=== PATIENT | male | born 1960 | race Caucasian/White ===

== ENCOUNTER 2022-06-13 14:14 | Outpatient (CLI) | payer OTHER, SELFPAY ==
[2022-06-13 11:41] LABS: Albumin* 4.2 g/dL (3.3-5.0)
[2022-06-13 11:44] LABS: Alanine Aminotransferase* 25 U/L (4-50); Alkaline Phosphatase* 86 U/L (40-150); Aspartate Amino Transferase* 36 U/L (12-35); Bilirubin Direct* 0.3 mg/dL (0.0-0.5); Bilirubin Total* 1.4 mg/dL (0.1-1.5); Cholesterol* 172 mg/dL (90-199); HDL Cholesterol* 72 mg/dL (>=40); LDL Cholesterol Calculated 86 mg/dL (<100); Total Protein* 6.6 g/dL (6.0-8.3); Triglycerides* 72 mg/dL (40-149)
== END 2022-06-13 14:15 | disposition home or self-care (01) ==
PROVIDERS: PCP Family Medicine; Visit Provider Family Medicine
DX: E78.00 Pure hypercholesterolemia, unspecified (principal)
CPT/HCPCS: 80061; 80076

== ENCOUNTER 2022-09-17 14:19 | Outpatient (CLI) | payer OTHER, SELFPAY ==
--- OUTSIDE RECORDS SUMMARY | 2022-09-21 09:59 | XMS_ITS | Encounter Summary ---
:1960 Author Organization [employer] Address [address], [place] [address] Care Team Providers Name Role Phone Walker Purcell MD Primary Care Provider Reason for Visit Reason Comments Pulmonary Encounter Details Date Type Department Care Team Description 11/08/2021 Telephone Specialty Center 3931 Lakhwinder Morgan MD Pulmonary Pulmonary Medicine 3931 [facility] 3931 [facility] [address] [place] [address] [place] [address] [phone] (Wo rk) Social History Tobacco Use Types Packs/Day Years Used Date Smoking Tobacco: Never Smokeless Tobacco: Never Alcohol Use Standard Drinks/Week Comments Yes 1 (1 standard drink = 0.6 oz pure alcoho l) about 5 per month Sex Assigned at Date Recorded Not on file documented as of this encounter Nursing Notes Brianne Morgan MD - 11/08/2021 1:50 PM CST Breo 200/25 sent. Thanks. Lizzie Sun RN - 11/08/2021 12:28 PM CST Sorry I did not state in phone note. Pt is not taking anything ics/laba. Offered to send in the 100/25 (as in last clinic note) but he wanted something stronger. VAN DRIVER Brianne Morgan MD - 11/08/2021 11:05 AM CST He is normally on Breo 100/25, based on his last note from 08/02/21. Is he taking this? If yes, then I would like him to increase to the 200/25 dosing. Rx sent. Advair is another option, but would need to taken BID. Thanks. VAN DRIVER Lizzie Price RN - 11/08/2021 10:43 AM CST Pt states that he is having a productive cough (white/milky) and chest tightness and increased GERD symptoms. Pt states that he cannot take prednisone due to up coming.Pt using duoneb BID, prilosec 40mg in AM and nexiium 40mg in AM and gaviscon 4 tab in PM, mucinex BID. Pt would like to get a strong inhaler to start to use. Please advair on RX. Thank you [facility] [place] VAN DRIVER documented in this encounter Plan of Treatment Upcoming Encounters Date Type Specialty Care Team Description 10/10/2022 Appointment Pulmonary 10/10/2022 Office Visit Pulmonary Koki Morgan MD 3931 [facility] [address] [facility] N [address] (Wo rk) documented as of this encounter Visit Diagnoses Not on filedocumented in this encounter Care Teams Ways Operator Relationship Specialty Start Date End Date Walker Purcell MD PCP - General Family Practice 03/02/[address]1999 [place] [address] documented as of this encounter
--- OUTSIDE RECORDS SUMMARY | 2022-09-21 09:59 | XMS_ITS | Encounter Summary ---
:1960 Author Organization [employer] Address [address] [place] [address] Care Team Providers Name Role Phone Walker Purcell MD Primary Care Provider Reason for Visit Reason Comments Refill Encounter Details Date Type Department Care Team Description 04/12/2022 Refill Specialty Center 3931 Lakhwinder Morgan MD Refill Pulmonary Medicine 3931 [facility] [address] [place] [address] [place] [address] [phone] Social History Tobacco Use Types Packs/Day Years Used Date Smoking Tobacco: Never Smokeless Tobacco: Never Alcohol Use Standard Drinks/Week Comments Yes 1 (1 standard drink = 0.6 oz pure alcoho l) about 5 per month Sex Assigned at Date Recorded Not on file documented as of this encounter Plan of Treatment Upcoming Encounters Date Type Specialty Care Team Description 10/10/2022 Appointment Pulmonary 10/10/2022 Office Visit Pulmonary Koki Morgan MD 3931 [facility] [address] [facility] N [address] (Wo rk) documented as of this encounter Visit Diagnoses Diagnosis Moderate persistent asthma without compl ication (HRC) Unspecified asthma documented in this encounter Care Teams Patient Access Relationship Specialty Start Date End Date Walker Purcell MD PCP - General Family Practice 03/02/191999 [place] [address] documented as of this encounter
--- OUTSIDE RECORDS SUMMARY | 2022-09-21 09:59 | XMS_ITS | Encounter Summary ---
:1960 Author Organization [facility] Address [address], [place] [address] Care Team Providers Name Role Phone Walker Purcell MD Primary Care Provider Encounter Details Date Type Department Care Team Description 03/14/2022 Orders Only HIM DEPARTMENT Provider, Carlos joe [place] [address] Social History Tobacco Use Types Packs/Day Years [...] Office Visit Pulmonary Koki Morgan MD [address] [facility] [address] [facility] N [id number] (Wo rk) documented as of this encounter Procedures Procedure Name Priority Date/Time Associated Diagnosis Comme nts PULMONARY TEST SC 03/14/2022 Results fo r this procedure are in the resu lts section. documented in this encounter Results PULMONARY TEST SC (03/14/2022) Narrative This result has an attachment that is no t available. Interface Provider DUMMY/OTHER/AR documented in this encounter Visit Diagnoses Not on filedocumented in this encounter Care Teams Optical Glass Sawyer Relationship Specialty Start Date End Date Walker Purcell MD PCP - General Family Practice 03/02/191999 [place] [address] documented as of this encounter
--- OUTSIDE RECORDS SUMMARY | 2022-09-21 09:59 | XMS_ITS | Encounter Summary ---
:1960 Author Organization [employer] Address [address], [place] [address] Care Team Providers Name Role Phone Walker Purcell MD Primary Care Provider Reason for Referral (Routine) - New Request Specialty Diagnoses / Procedures Referred By Contact Refer red To Contact Procedures Brianne Morgan MD Pulmonary Function Test - 3931 [facility] [address] Complete [place], [place] [address] Referral ID Status Reason Start Date Expiration Date Visits V isits Requested Authorized [id number] New Request 03/13/2022 06/12/2023 1 1 Encounter Details Date Type Department Care Team Description 03/14/2022 Hospital Encounter Specialty Center 3931 Pulmonary Cough Lab 3931 [place], [place] [id number] Social History Tobacco Use Types Packs/Day Years Used Date Smoking Tobacco: Never Smokeless Tobacco: Never Alcohol Use Standard Drinks/Week Comments Yes 1 (1 standard drink = 0.6 oz pure alcoho l) about 5 per month Sex Assigned at Date Recorded Not on file documented as of this encounter Medications at Time of Discharge Medication Sig Dispensed Refills Start Date End Date ALBUterol sulfate HFA Inhale 1-2 Puffs 1 Each 11 03/14/20 22 (VENTOLIN HFA) 108 (90 every 4 hours as Base) MCG/ACT needed for Wheezing. inhalerIndications: Moderate persistent asthma without complication (HRC) Alum Hydroxide-Mag 4 Tablets. 0 Carbonate (GAVISCON OR) esomeprazole (NEXIUM) Take 40 mg by mouth. 0 02/09 20 MG capsule famotidine (PEPCID AC) 0 06/25/2021 10 MG tablet fluticasone-vilanterol Inhale 1 Dose daily. 1 Each 11 02/2022 (BREO ELLIPTA) 200-25 Rinse mouth/gargle MCG/INH after use inhalerIndications: Moderate persistent asthma without complication (HRC) ipratropium-albuterol Inhale 3 mL every 4 120 mL 11 03/14 (DUONEB) 0.5-2.5 (3) hours as needed for mg/3ml nebulizer Wheezing or Shortness solutionIndications: of Breath. Moderate persistent asthma without complication (HRC) loratadine (CLARITIN) Take 10 mg by mouth 0 10 MG tablet daily. montelukast (SINGULAIR) Take 1 Tablet by 90 Tablet 3 2020 10 MG tablet mouth every evening. pravastatin (PRAVACHOL) Take 20 mg by mouth 0 05/2022 20 MG tablet daily. traZODone (DESYREL) 50 Take 50 mg by mouth 0 02/09 MG tablet daily at bedtime. valACYclovir (VALTREX) Take 1 g by mouth 0 2016 1 G tablet daily. doxycycline monohydrate Take 1 Capsule (100 20 Capsule 3 02/202203/24/2022 (MONODOX) 100 MG mg) by mouth two capsuleIndications: times a day for 10 Acute sinusitis, days. Pharmacy may recurrence not substitute hyclate or specified, unspecified monohydrate tab or location capsule based on insurance documented as of this encounter Plan of Treatment Upcoming Encounters Date Type Specialty Care Team Description 10/10/2022 Appointment Pulmonary 10/10/2022 Office Visit Pulmonary Koki Morgan MD [address] [facility] [address] [address] (Wo rk) documented as of this encounter Procedures Procedure Name Priority Date/Time Associated Diagnosis Comme nts COMPLETE PULMONARY Routine 03/14/2022 9:43 AM CDT FUNCTION TEST documented in this encounter Results Pulmonary Function Test - Complete (03/14/2022 9:43 AM CDT) Specimen (Source) Anatomical Collection Method Collection Time Re ceived Time Location / / Volume Laterality 03/14/2022 9:43 AM CDT Brianne Morgan MD PN PFT ORDERABLES Performing Organization Address City/State/ZIP Code Phon e Number PN BREEZE documented in this encounter Visit Diagnoses Diagnosis Cough documented in this encounter Care Teams Relief Cook Relationship Specialty Start Date End Date Walker Purcell MD PCP - General Family Practice 03/02/191999 [place] [address] documented as of this encounter
--- OUTSIDE RECORDS SUMMARY | 2022-09-21 09:59 | XMS_ITS | Encounter Summary ---
:1960 Author Organization [employer] Address [address], [place] [address] Care Team Providers Name Role Phone Walker Purcell MD Primary Care Provider Encounter Details Date Type Department Care Team Description 12/20/2021 Telephone Specialty Center 3931 Lakhwinder Morgan MD Pulmonary Medicine 3931 [facility] 3931 [facility] [address] [place] [address] [place], [place] [phone] (Wo rk) Social History Tobacco Use Types Packs/Day Years Used Date Smoking Tobacco: Never Smokeless Tobacco: Never Alcohol Use Standard Drinks/Week Comments Yes 1 (1 standard drink = 0.6 oz pure alcoho l) about 5 per month Sex Assigned at Date Recorded Not on file documented as of this encounter Nursing Notes Abeba Quarles - 12/20/2021 1:51 PM CST Called pt to cancel appts with Dr. Morgan on 03/06/22 as she will be on vacation. Left message to call back and reschedule. OGRAMMETRIC COMPILATION SPECIALIST documented in this encounter Plan of Treatment Upcoming Encounters Date Type Specialty Care Team Description 10/10/2022 Appointment Pulmonary 10/10/2022 Office Visit Pulmonary Koki Morgan MD 3931 [facility] [address] [facility] [address] (Wo rk) documented as of this encounter Visit Diagnoses Not on filedocumented in this encounter Care Teams Motion Picture Director Relationship Specialty Start Date End Date Walker Purcell MD PCP - General Family Practice 03/02/191999 [place] [address] documented as of this encounter
--- OUTSIDE RECORDS SUMMARY | 2022-09-21 09:59 | XMS_ITS | Encounter Summary ---
:1960 Author Organization [employer] Address [address] [place] [address] Care Team Providers Name Role Phone Walker Purcell MD Primary Care Provider Reason for Visit Reason Comments Follow-up Encounter Details Date Type Department Care Team Description 03/14/2022 Office Visit Specialty Center Brianne Morgan persistent asthma without complication (Primary Dx); 3931 Pulmonary A, Acute sinusitis, recurrence not specifie d, unspecified location Medicine 3931 [facility] 3931 [facility] [address] [place] [id number] (Wo rk) Social History Tobacco Use Types Packs/Day Years Used Date Smoking Tobacco: Never Smokeless Tobacco: Never Alcohol Use Standard Drinks/Week Comments Yes 1 (1 standard drink = 0.6 oz pure alcoho l) about 5 per month Sex Assigned at Date Recorded Not on file documented as of this encounter Last Filed Vital Signs Vital Sign Reading Time Taken Comments Blood Pressure - - Pulse 79 03/14/2022 10:07 AM CDT Temperature - - Respiratory Rate - - Oxygen Saturation 98% 03/14/2022 10:07 AM CDT Inhaled Oxygen Concentration - - Weight 84.4 kg (186 lb) 03/14/2022 10:07 AM CDT Height 181 cm (5' 11.25) 03/14/2022 10:07 AM CDT Body Mass Index 25.76 03/14/2022 10:07 AM CDT documented in this encounter Progress Notes Brianne Morgan MD - 03/14/2022 10:15 AM CDT CLINIC PROGRESS NOTE REASON FOR VISIT: Follow up asthma and recurrent lung infections. SUBJECTIVE: This is a 62-year-old male with a history of asthma, recurrent bronchitis, hiatal hernia with GERD, and allergic rhinitis who presents for routine followup. He was last seen by me in the Pulmonary Clinic in July 2021, and his initial consultation was November 2017. In the past, he has been seen at [facility] in 2014, [facility], [facility]. He returns today for routine followup. For his asthma, he is on Breo 200/25, which he is using approximately 3 days per week and Singulair. He also uses albuterol periodically. The last time he needed antibiotics and prednisone was October 2021. However, he does feel that he is starting to get a sinus infection, as he has yellowish postnasal drainage and some right maxillary sinus pressure today. Nofever, chills, night sweats, chest pain, wheezing, significant cough, or dyspnea. He continues to swim regularly. He had a knee replacement in November 2021 and was off caffeine for approximately 9 weeks. He restarted some caffeine approximately 3 weeks ago. He mainly drinks pop. His primary provider added famotidine to his Gaviscon, and he feels this has helped his reflux symptoms. He has a hiatal hernia. He is a lifelong nonsmoker. 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 Hobbies include swimming and singing in a choir. He has cut way back on his alcohol intake, which also seems to help his reflux. OBJECTIVE: VITAL SIGNS: Pulse 79 Ht 5' 11.25 (1.81 m) Wt 186 lb (84.4 kg) SpO2 98% BMI 25.76 kg/m?? GENERAL: Pleasant male, no acute distress. Able to easily speak in full sentences. HEENT: Moist mucosal membranes. NECK: No lymphadenopathy. LUNGS: Clear to auscultation bilaterally. CARDIAC: Regular rate and rhythm. RESULTS: Pulmonary function tests (today): FVC 138%, FEV1 115%, and ratio 67, consistent with mild obstruction. Exhaled nitric oxide 19 ppb. Compared to his last pulmonary function test from July 2021, there is improvement in his spirometry and exhaled nitric oxide. Recent COVID test negative IMPRESSION: 1. Recurrent bronchitis: Suspect multifactorial including asthma, acid reflux from his hiatal hernia, and possibly a contributor of prior high doses of inhaled steroids. Immunoglobulin testing normal 2017. Periodically requires a Zpak. 2. Moderate persistent asthma: Symptoms generally well controlled on Breo 200/25 3 days per week. His pulmonary function tests today show mild obstruction, and his marker of airway inflammation is improved since restarting Breo. 3. Intermittent hoarseness: Likely from inhaled corticosteroids, postnasal drainage and acid reflux.Not currently having an issue with this. 4. Allergic rhinitis: On Singulair. 5. History of alcohol abuse: Minimal alcohol in the last 6 months. 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 7. Prior normal high-resolution CT chest February 2018, except for some very tiny scattered pulmonary nodules, which were stable compared to 2017. 8. Normal immunoglobulin testing and white blood cell count differential 2018. 9. COVID vaccinated (Moderna) and recent testing negative. RECOMMENDATIONS: 1. If he has worsening of his postnasal drainage, he could try nasal saline irrigation and Flonase. 2. Continue Breo 200/25 one puff to keep symptoms under good control (currenlty using approximately 3 days per week) 3. He understands the importance of minimizing carbonated beverages (and other drinks/foods) to helpminimize his acid reflux. 4. Already has an Aerobika at home to use b.i.d. for airway clearance when necessary. 5. Continue regular physical activity. 6. No indication for supplemental oxygen. 7. Continue albuterol inhaler or DuoNebs as needed. 8. Given rescue prescriptions for a doxycycline to use PRN. He will take a 10 day course of doxycycline now for acute sinusitis. 9. Continue Singulair daily. 10. Keep acid reflux under good control. 11. Keep allergies under good control. 12. 2nd COVID booster scheduled for Saturday, 03/16 Return to Pulmonary Clinic in 6 months with spirometry and exhaled nitric oxide or sooner if needed. Total Time: 40 minutes. documented in this encounter Plan of Treatment Upcoming Encounters Date Type Specialty Care Team Description 10/10/2022 Appointment Pulmonary 10/10/2022 Office Visit Pulmonary Koki Morgan MD [address] [place] [facility] [address] [facility] [address] (Wo rk) Scheduled Orders Name Type Priority Associated Diagnoses Order S chedule Spirometry PFT Routine Moderate persistent asthma E xpected: 09/14/2022, without complication Expires : 03/14/2023 Nitrous Ox Testing PFT Routine Moderate persistent as thma Expected: 09/14/2022, without complication Expires : 03/14/2023 documented as of this encounter Visit Diagnoses Diagnosis Moderate persistent asthma without compl ication (HRC) - Primary Unspecified asthma Acute sinusitis, recurrence not specifie d, unspecified location documented in this encounter Care Teams Recovery Coordinator Relationship Specialty Start Date End Date Walker Purcell MD PCP - General Family Practice 03/02/191999 [place] [address] documented as of this encounter
--- OUTSIDE RECORDS SUMMARY | 2022-09-21 09:59 | XMS_ITS | Clinical Summary ---
:1960 Author Organization [facility] [facility] [place] [address] Care Team Providers Name Role Phone Wakler Purcell MD Primary Care Provider Allergies No known active allergies Medications Medication Sig Dispensed Refills Start Date End Date Status albuterol HFA Inhale 2 Puffs 0 02/21/2013 Active (VENTOLIN HFA) 90 by mouth 4 times mcg/actuation daily if needed. inhaler esomeprazole Take 1 capsule 0 02/21/2013 A ctive (NEXIUM) 20 mg by mouth once capsule daily before a meal. NebulizerIndicati Nebulizer, neb 1 Device 0 12/01/2014 Active ons: Asthma kit, neb cup and mask. Medication: albuterol For home use. albuterol Inhale 3 mL via 2 box 3 12/01/2014 Act beverly (PROVENTIL) 0.083 a nebulizer % neb every 6 hours if solutionIndicatio needed for ns: Asthma Shortness Of Breath. montelukast Take 10 mg by 0 Acti ve (Singulair) 10 mg mouth at tablet bedtime. mag/aluminum/sod Take 4 Tablets 0 Active bicarb/alginc by mouth at (GAVISCON ORAL) bedtime. loratadine Take 1 Tablet 0 08/29/2022 Acti ve (Claritin) 10 mg (10 mg) by mouth tablet once daily. traZODone Take 25 mg by 0 02/27/2022 Activ e (DESYREL) 50 mg mouth at tablet bedtime. famotidine Take 1 Tablet by 0 06/25/2021 A ctive (PEPCID) 10 mg mouth once tablet daily. pravastatin Take 20 mg by 0 02/15/2022 Act beverly (PRAVACHOL) 20 mg mouth. tablet fexofenadine Take 1 tablet by 0 09/27/2014 08/29/20 Discontinued (WAL-FEX ALLERGY) mouth once daily 22 (*Patient states 180 mg tablet with a meal. no longer taking/Not on sending fa cility list) BREO ELLIPTA 0 07/12/2020 08/29/20 Discon tinued 100-25 mcg/dose 22 (*Pa tient states inhaler no longer taking/Not on sending fa cility list) aspirin 81 mg cap Take 81 mg by 0 08/29/20 Discontinued mouth 2 times 22 (*Gi ent states daily. Put on no hugo faby asa bid due to takin g/Not on knee replacement sen [facility] facility (knee list) replacement 11-21-2021) Hospital, Clinic, or Ordered Dose Route Frequency Start Date End D ate Status Other Facility Administered Medication triamcinolone 10 mg INFILTRATION ONE TIME 08/29/2022 08/29/2022 E nded acetonide (KENALOG) injection 10 mgIndications: Luna's neuroma of left foot Active Problems Problem Noted Date Adenomatous colon polyp 07/22/2015 Overview: Colonoscopy 07/2015 polyp repeat in 5 yea rs GERD (gastroesophageal reflux disease) 02/20/2014 Asthma 02/20/2014 Allergy, unspecified not elsewhere classified 02/22/20 13 Overview: Has benefited from Allergy shots 3 years ; DOCTOR Karina Ken Encounters Date Type Specialty Care Team Description 08/29/2022 Office Visit Joseph Willard DPM Con sult (Left foot) 08/29/2022 Travel 07/20/2022 Telephone Joseph Willard DPM Ref erral from Last 3 Months Social History Tobacco Use Types Packs/Day Years Used Date Never Smoker Smokeless Tobacco: Never Used Tobacco Cessation: Counseling Given: Yes Alcohol Use Standard Drinks/Week Comments Yes 0 (1 standard drink = 0.6 oz pure alcoho l) Sex Assigned at Date Recorded Not on file Travel History Travel Start Travel End [place] 08/11/2022 08/23/2022 COVID-19 Exposure Response Date Recorded In the last 10 days, have you been in contact with No / Unsu re 08/29/2022 8:37 AM CDT someone who was confirmed or suspected to have Coronavirus/COVID-19? Obstetrics History Last Filed Vital Signs Vital Sign Reading Time Taken Comments Blood Pressure 130/84 08/29/2022 8:47 AM CDT towe Pulse 81 08/29/2022 8:47 AM CDT Temperature 36.4 ??C (97.5 ??F) 10/24/2020 11:36 AM FRONT END DEVELOPER JAVASCRIPT HTML CSS Respiratory Rate 18 09/27/2014 3:17 PM FRONT END DEVELOPER JAVASCRIPT HTML CSS Oxygen Saturation 97% 08/29/2022 8:47 AM CDT Inhaled Oxygen Concentration - - Weight 89.8 kg (198 lb) 08/29/2022 8:47 AM CDT Height 187.3 cm (6' 1.75) 11/22/2021 11:27 AM FRONT END DEVELOPER JAVASCRIPT HTML CSS Body Mass Index 25.59 11/22/2021 11:27 AM FRONT END DEVELOPER JAVAS[employer] HTML CSS Plan of Treatment Health Maintenance Due Date Last Done Comments Pneumococcal series for age 19-64 1967 (1 - PCV) Tdap 01/30/1972 Depression screening for age 12+ 1973 BMI (ht and wt on same day) for 1979 age 18+ Hepatitis C screening for age 0301/29/1979 18-79 Tetanus booster 1981 Lipids for age 45-75 2006 Zoster (shingles) series for age 0301/29/2011 50+ (1 of 2) COVID-19 vaccine series (5 - 05/11/2022 03/16/2022, 021, Booster for Moderna series) 01/05/2021, Addition al history exists Influenza for age 50-64 07/12/2022 Colonoscopy through age 75 03/10/2028 03/10/2021, , 09/12/2020, Additional history exists Results Not on filefrom Last 3 Months Insurance Payer Benefit Plan / Subscriber ID Effective Dates Phone Addre ss Type Group HEALTH [employer] [id number] 2016-Present [address] [place] [address] Care Teams Membership Administrator Relationship Specialty Start Date End Date Walker Purcell MD PCP - General Family Practice 11/21/21 [address], [place] [address]
--- OUTSIDE RECORDS SUMMARY | 2022-09-21 09:59 | XMS_ITS | Encounter Summary ---
:1960 Author Organization [employer] Address [address], [place] [address] Care Team Providers Name Role Phone Walker Purcell MD Primary Care Provider Reason for Visit Reason Onset Date Comments COVID Questions 03/12/2022 Encounter Details Date Type Department Care Team Description 03/12/2022 Lab Visit [facility] ter for screening for Laboratory other viral diseases [address] [facility] (Primary Dx) [place] [address] Social History Tobacco Use Types Packs/Day Years [...] Office Visit Pulmonary Koki Morgan MD [address] [facility] [address] [facility] N [address] (Wo rk) documented as of this encounter Procedures Procedure Name Priority Date/Time Associated Comments Diagnosis 2019 NOVEL Routine 03/12/2022 9:48 AM Encounter for Results for this CORONAVIRUS CDT screening for other procedur e are in viral diseases the results section. documented in this encounter Results Asymptomatic - 2019 Novel Coronavirus (COVID-19) (03/12/2022 9:48 AM CDT) [facility] Method Time Signature COVID-19 Not Not 03/12/2022 [facility] Interpretation Detected Detected 9:06 PM CENTRAL LAB CDT Source Nares, left 03/12/2022 [facility] and right 9:06 PM CENTRAL LAB CDT Specimen Anatomical Collection Method Collection Time Receive d Time (Source) Location / / Volume Laterality Swab (Source Non-blood 03/12/2022 9:48 AM 2 Required) Collection / CDT 10:27 AM CDT Unknown Narrative [facility] - 03/12/2022 9:06 PM CDT Test performed by Photograph Developer Mediated Amplification. TMA has been shown to be equivalent to commercial real-time PCR t ests. This test has been authorized by the FDA under Emergency Use Authorization (E UA) for use by authorized laboratories. Lucas Chandler MD LAB_1 Performing Organization Address City/State/ZIP Code Phon e Number [facility] CENTRAL LAB [address] [address] documented in this encounter Visit Diagnoses Diagnosis Encounter for screening for other viral diseases - Primary documented in this encounter Care Teams Staff Consultant Relationship Specialty Start Date End Date Walker Purcell MD PCP - General Family Practice 03/02/191999 [place] [address] documented as of this encounter
--- OUTSIDE RECORDS SUMMARY | 2022-09-21 09:59 | XMS_ITS | Clinical Summary ---
:1960 Author Organization Location Address [address], [place] [address] Care Team Providers Name Role Phone Walker Purcell MD Primary Care Provider Source Comments You are receiving this document as you are listed as the primary care provider,follow-up provider, or the patient has been referred to you for consultation.This is in compliance with the Medicare and Medicaid EHR Incentive Program,which states Providers who transition their patient to another setting of careor provider of care or refers their patient to another provider of care shouldprovide summarycare record for each transition of care or referral. Location Allergies Active Allergy Reactions Severity Noted Date Comments Other 08/01/1998 PN: LW Other1: -nka Review Contrast Media 08/01/1998 PN: LW CM1: CONTRAST- nka Reaction : Review Food Intolerance PN: LW FI1: nka Medications Medication Sig Dispensed Refills Start Date End Date Status valACYclovir (VALTREX) Take 1 g by mouth 0 7 Active 1 G tablet daily. esomeprazole (NEXIUM) Take 40 mg by 0 02/21/2013 Active 20 MG capsule mouth. montelukast Take 1 Tablet by 90 Tablet 3 08/02/2021 Active (SINGULAIR) 10 MG mouth every tablet evening. Alum Hydroxide-Mag 4 Tablets. 0 Active Carbonate (GAVISCON OR) famotidine (PEPCID AC) 0 06/25/2021 Active 10 MG tablet pravastatin Take 20 mg by 0 02/15/2022 Act beverly (PRAVACHOL) 20 MG mouth daily. tablet traZODone (DESYREL) 50 Take 50 mg by 0 02/27/2022 Active MG tablet mouth daily at bedtime. loratadine (CLARITIN) Take 10 mg by 0 Active 10 MG tablet mouth daily. fluticasone-vilanterol Inhale 1 Dose 1 Each 03/14/2022 Active (BREO ELLIPTA) 200-25 daily. Rinse MCG/INH mouth/gargle after inhalerIndications: use Moderate persistent asthma without complication (HRC) ALBUterol sulfate HFA Inhale 1-2 Puffs 1 Each 03/14/2022 Active (VENTOLIN HFA) 108 (90 every 4 hours as Base) MCG/ACT needed for inhalerIndications: Wheezing. Moderate persistent asthma without complication (HRC) ipratropium-albuterol Inhale 3 mL every 120 mL 03/14/2022 Active (DUONEB) 0.5-2.5 (3) 4 hours as needed mg/3ml nebulizer for Wheezing or solutionIndications: Shortness of Moderate persistent Breath. asthma without complication (HRC) Active Problems Problem Noted Date Hiatal hernia 12/05/2017 Adenomatous colon polyp 07/22/2015 Overview: Overview: Colonoscopy 07/2015 polyp repeat in 5 yea rs GERD (gastroesophageal reflux disease) 02/20/2014 Allergic state 02/21/2013 Overview: Overview: Has benefited from Allergy shots 3 years ; DOCTOR Karina Ken Asthma 04/17/2003 Overview: Asthma NOS Allergic rhinitis 04/17/2003 Overview: Rhinitis Allergic NOS Immunizations Name Administration Dates Next Due Influenza IIV4 (Quadrivalent) 0.5mL (71953) 09/24/2019 Moderna (Spikevax) COVID-19, 12+ Yrs 12/08/2020 Social History Tobacco Use Types Packs/Day Years Used Date Smoking Tobacco: Never Smokeless Tobacco: Never Alcohol Use Standard Drinks/Week Comments Yes 1 (1 standard drink = 0.6 oz pure alcoho l) about 5 per month Sex Assigned at Date Recorded Not on file Last Filed Vital Signs Vital Sign Reading Time Taken Comments Blood Pressure 137/90 12/13/2020 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 Pulse 79 03/14/2022 10:07 AM CDT Temperature - - Respiratory Rate 18 01/21/2018 3:10 PM CDT Oxygen Saturation 98% 03/14/2022 10:07 AM CDT Inhaled Oxygen Concentration - - Weight 84.4 kg (186 lb) 03/14/2022 10:07 AM CDT Height 181 cm (5' 11.25) 03/14/2022 10:07 AM CDT Body Mass Index 25.76 03/14/2022 10:07 AM CDT Plan of Treatment Upcoming Encounters Date Type Specialty Care Team Description 10/10/2022 Appointment Pulmonary 10/10/2022 Office Visit Pulmonary Koki Morgan MD [address] [facility] [address] [place] [address] (Wo rk) Health Maintenance Due Date Last Done Comments Colon Cancer Screening Plan 1960 Due Hep C Screening (Preventive 1960 Services) PSA Screening Discussion 1960 HIV Screening (Preventive 1977 Services) Adult Preventive Visit 1979 DTaP/Tdap/Td (1 - Tdap) 01/30/1980 Cholesterol 01/30/1996 Zoster/Shingles (1 of 2) 2011 COVID-19 Vaccine (2 - 01/05/2021 12/08/2020 Moderna series) Influenza (#1) 2022 09/01/2021, 08/23/2020, 09/24/2019, Additional history exists Pneumococcal (3 - PPSV23) 2026 06/27/2018, 03/08/2015 HepA Aged Out No longer eligib le based on patient 's age to complete this topic HepB Aged Out No longer eligib le based on patient 's age to complete this topic Hib Aged Out No longer eligib le based on patient 's age to complete this topic IPV (Polio) Aged Out No longer eligib le based on patient 's age to complete this topic MCV4 Aged Out No longer eligib le based on patient 's age to complete this topic Insurance Payer Benefit Plan / Subscriber ID Effective Dates Phone Addre ss Type [facility] FULLY [id number] 2016-Present Commercial INSURED (Work) [phone] Trey Christensenic Timothy Personal/Famil Self 1960 [address] [facility] y (Home) [place] [phone] [place], [place] (Work) [phone] Care Teams Retort Loader Relationship Specialty Start Date End Date Walker Purcell MD PCP - General Family Practice 03/02/191999 [place], [place] [address]
--- OUTSIDE RECORDS SUMMARY | 2022-09-21 09:59 | XMS_ITS | Encounter Summary ---
:1960 Author Organization [employer] Address [address], [place] [address] Care Team Providers Name Role Phone Walker Purcell MD Primary Care Provider Reason for Visit Reason Comments Refill Encounter Details Date Type Department Care Team Description 03/31/2022 Refill Specialty Center [address] Lakhwinder Morgan MD Refill Pulmonary Medicine [address] [facility] [address] [place] [address] [place] [address] [phone] Social History Tobacco Use Types Packs/Day Years [...] Visit Pulmonary Koki Morgan MD [address] [facility] [address] [facility] N [address] (Wo rk) documented as of this encounter Visit Diagnoses Diagnosis Moderate persistent asthma without compl ication (HRC) Unspecified asthma documented in this encounter Care Teams Natural Resource Officer Relationship Specialty Start Date End Date Walker Purcell MD PCP - General Family Practice 03/02/191999 [place] [address] documented as of this encounter
--- OUTSIDE RECORDS SUMMARY | 2022-09-21 10:00 | XMS_ITS | Encounter Summary ---
:1960 Author Organization [employer] Address [address] [place] [address] Care Team Providers Name Role Phone Walker Purcell MD Primary Care Provider Reason for Referral (Routine) - Closed Specialty Diagnoses / Procedures Referred By Contact Refer red To Contact Procedures Brianne Morgan MD Pulmonary Function Test - [address] [facility] [address] Complete [place], [place] [address] Referral ID Status Reason Start Date Expiration Date Visits Requ ested Visits Authorized [id number] Closed 06/09/2020 09/08/2021 1 1 Encounter Details Date Type Department Care Team Description 06/10/2020 Hospital Encounter Specialty Center 3931 Asthma, unspecified Pulmonary Lab asthma severity, 39[address] [facility] unspecified whether [place], [place] complic ated, [address] unspecified whether [phone] persistent Social History Tobacco Use Types Packs/Day Years Used Date Smoking Tobacco: Never Smokeless Tobacco: Never Alcohol Use Standard Drinks/Week Comments Yes 1 (1 standard drink = 0.6 oz pure alcoho l) about 5 per month Sex Assigned at Date Recorded Not on file documented as of this encounter Medications at Time of Discharge Medication Sig Dispensed Refills Start Date End Date esomeprazole (NEXIUM) 20 Take 40 mg by mouth. 0 0 02/21/2013 MG capsule valACYclovir (VALTREX) 1 Take 1 g by mouth 0 09/12 G tablet daily. ALBUterol sulfate HFA Inhale 1-2 Puffs 54 g 11 06/10/20 20 07/19/2021 108 (90 Base) MCG/ACT every 4 hours as inhalerIndications: needed for Wheezing. Moderate persistent (3 inhalers please) asthma without complication (HRC) drug not in computer Magnesium Carbonate 0 08/02/2021 with Melatonin fluticasone-vilanterol Inhale 1 Dose daily. 1 Each 11 07/19/2021 (BREO ELLIPTA) 100-25 Rinse mouth/gargle MCG/INH after use inhalerIndications: Moderate persistent asthma without complication (HRC) ipratropium-albuterol 0 09/13/2017 (DUONEB) 0.5-2.5 MG/3ML nebulizer solution montelukast (SINGULAIR) Take 1 Tablet by 90 Tablet 3 201904/03/2021 10 MG tabletIndications: mouth every evening. Moderate persistent asthma without complication (HRC) predniSONE (DELTASONE) Take 4 tabs daily x3 30 Tablet 0 12/13/2020 10 MG tabletIndications: days, 3 tabs daily x3 Moderate persistent days, 2 tabs daily x3 asthma with exacerbation days, 1 tab daily x3 (HRC) days, then stop Probiotic Product (SUPER 0 08/02/2021 PROBIOTIC OR) raNITIdine (ZANTAC) 150 Take 150 mg by mouth 0 11/08/2021 MG tablet two times a day. documented as of this encounter Plan of Treatment Upcoming Encounters Date Type Specialty Care Team Description 10/10/2022 Appointment Pulmonary 10/10/2022 Office Visit Pulmonary Koki Morgan MD [address] [facility] [address] [facility] [address] (Wo rk) documented as of this encounter Procedures Procedure Name Priority Date/Time Associated Diagnosis Comme nts COMPLETE PULMONARY Routine 06/10/2020 9:55 AM CDT FUNCTION TEST documented in this encounter Results Pulmonary Function Test - Complete (06/10/2020 9:55 AM CDT) Specimen (Source) Anatomical Collection Method Collection Time Re ceived Time Location / / Volume Laterality 06/10/2020 9:55 AM CDT Brianne Morgan MD PN PFT ORDERABLES Performing Organization Address City/State/ZIP Code Phon e Number PN [place]IO documented in this encounter Visit Diagnoses Diagnosis Asthma, unspecified asthma severity, uns pecified whether complicated, unspecified whether persistent documented in this encounter Care Teams Marine Steam Fitter Helper Relationship Specialty Start Date End Date Walker Purcell MD PCP - General Family Practice 03/02/191999 [place] [address] documented as of this encounter
--- OUTSIDE RECORDS SUMMARY | 2022-09-21 10:00 | XMS_ITS | Encounter Summary ---
:1960 Author Organization [employer] Address [address] [place] [address] Care Team Providers Name Role Phone Walker Purcell MD Primary Care Provider Reason for Visit Reason Comments Follow-up Encounter Details Date Type Department Care Team Description 12/13/2020 Office Visit Specialty Center Brianne Morgan persistent asthma without complication (Primary Dx); 3931 Pulmonary AMD Bronchitis, mucopurulent recurrent (HRC) Medicine [address] [facility] [address] [facility] [address] [place] [phone] (Wo rk) Social History Tobacco Use Types [...] Comments Blood Pressure 137/90 12/13/2020 11:24 AM 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 Continue Breo 100-25 1 puff daily 2. Continue albuterol inhaler as needed 3. Rescue prescriptions for a Zpak and prednisone were sent to your pharmacy 4. Your recent COVID testing was negative CIPAL BOND TRADER documented in this encounter Progress Notes Brianne Morgan MD - 12/13/2020 12:00 PM CST NAME: CECY CHRISTENSEN MR#: [id number] CSN: [id number] AUTHENTICATING CLINICIAN: Brianne Morgan MD CONFIRM #: [id number] LOC: 234 CLINIC PROGRESS NOTE DATE OF VISIT: 12/13/2020 : 1960 REASON FOR VISIT: Follow up asthma and recurrent lung infections. SUBJECTIVE: This is a 60-year-old male with a history of asthma, recurrent bronchitis, hiatal hernia with GERD, and allergic rhinitis who presents for routine followup. He was last seen by me in the Pulmonary Clinic in May 2020, and his initial consultation was November 2017. In the past, he has been seen at [facility] in 2014, [facility], [facility]. He returns today for routine followup. For his asthma, he is on Breo 100/25 and albuterol as needed.He has been on Breo 200/25 in the past for increased symptoms in spring 2019, but his baseline dose is the 100/25 strength. He is back to swimming for the last 2-1/2 weeks. He does feel more winded as he was not able to swimduring the pause from the COVID-19 pandemic. He is not singing right now as there is currently no choir practice due to the pandemic. In general, he feels pretty good. He is not currently having any shortness of breath at rest, coughing, or wheezing. He did get an infection at the end of July and then again in October 2020 with prolonged symptoms. On October 11, 2020, he was given doxycycline with no significant change in his symptoms. He wasthen given 5 days of prednisone and a Z-Gerardo which he did find very helpful. He is trying to change his diet and eat less sugar. He is drinking Red Bull and pop daily and knows this can contribute to increased acid reflux. He again is typically an avid swimmer and in a choir, but due to the COVID-19 pandemic, he has not been able to participate in these activities, although he was able to restart swimming 2-1/2 weeks ago. He is a lifelong nonsmoker. 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 OBJECTIVE: VITAL SIGNS: Blood pressure 137/90, heart rate 64. Height 5 feet 11-1/4 inches, weight 200 pounds, body mass index 27.7. Oxygen saturation 98% on room air at rest. GENERAL: Pleasant male, no acute distress. Able to easily speak in full sentences. HEENT: Moist mucosal membranes. NECK: No lymphadenopathy. LUNGS: Clear to auscultation bilaterally. CARDIAC: Regular rate and rhythm. RESULTS: Pulmonary function tests (today): FVC 126%, FEV1 106%, and ratio 67, consistent with mild obstruction. Exhaled nitric oxide is normal at 17. Compared to May 2020, his FVC is decreased, but his FEV1 isimproved. Asthma Control Test indicating good control of symptoms. COVID-19 test negative from December 11. IMPRESSION: 1. Recurrent bronchitis: Suspect multifactorial including asthma, acid reflux from his hiatal hernia, and possibly a contributor of prior high doses of inhaled steroids. Immunoglobulin testing normal 2017. Last required antibiotics in October 2020, initially doxycycline and then a Z-Gerardo. 2. Moderate persistent asthma: Symptoms generally well controlled on Breo 100/25. He required higherdose Breo in the spring due to increased symptoms. His pulmonary function tests today show mild obstruction, and his FEV1 is actually improved compared to May 2020. I suspect his FVC is decreased due to his lack of ability to swim regularly and join choir practices. 3. Intermittent hoarseness: Likely from inhaled corticosteroids, postnasal drainage and acid reflux.Not currently having an issue with this. 4. Allergic rhinitis: On Singulair. 5. History of alcohol abuse: No alcohol since August 10, 2020. 6. 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 7. Prior normal high-resolution CT chest February 2018 except for some very tiny scattered pulmonary nodules which were stable compared to 2017. 8. Normal immunoglobulin testing and white blood cell count differential 2018. 9. Negative Coronavirus Disease 2019 test December 11. RECOMMENDATIONS: 1. If he has worsening of his postnasal drainage, he could try nasal saline irrigation and Flonase. 2. Continue Breo 100/25 one puff daily. 3. Discussed the importance of avoiding carbonated beverages to help minimize his acid reflux. 4. Already has an Aerobika at home to use b.i.d. for airway clearance when necessary. 5. Continue regular physical activity. 6. No indication for supplemental oxygen. 7. Continue albuterol inhaler as needed. 8. Given rescue prescriptions for a Z-Gerardo and prednisone to keep at home and counseled on appropriate use. 9. Continue Singulair daily. 10. Keep acid reflux under good control. 11. Keep allergies under good control. Return to Pulmonary Clinic in 6 months with spirometry and exhaled nitric oxide or sooner if needed. Total Time 40 minutes. Counseling time 30 minutes. EAM:MEDQ C: CONFIRM #: [id number] CIPAL BOND TRADER Brianne Morgan MD - 12/13/2020 11:30 AM CST Note dictated BP (!) 137/90 (BP Location: Right Arm, BP Cuff Size: Regular - Long) Pulse 64 Ht 5' 11.25 (1.81m) Wt 200 lb (90.7 kg) SpO2 98% BMI 27.70 kg/m?? CIPAL BOND TRADER documented in this encounter Plan of Treatment Upcoming Encounters Date Type Specialty Care Team Description 10/10/2022 Appointment Pulmonary 10/10/2022 Office Visit Pulmonary Koki Morgan MD [address] [place] [address] [facility] [address] [address] (Wo rk) documented as of this encounter Visit Diagnoses Diagnosis Moderate persistent asthma without compl ication (HRC) - Primary Unspecified asthma Bronchitis, mucopurulent recurrent (HRC) Mucopurulent chronic bronchitis documented in this encounter Care Teams Labor Union Business Representative Relationship Specialty Start Date End Date Walker Purcell MD PCP - General Family Practice 03/02/191999 [place] [address] documented as of this encounter
--- OUTSIDE RECORDS SUMMARY | 2022-09-21 10:00 | XMS_ITS | Encounter Summary ---
:1960 Author Organization [facility] Address [address] [address] Care Team Providers Name Role Phone Walker Purcell MD Primary Care Provider Encounter Details Date Type Department Care Team Description 07/31/2021 Notes/Orders [facility] & Walker Purcell MD Preop examination Speciality Center - [address] [place], [place] [address] [facility] [address] [address] [place], [place] [address] [phone] Social History Tobacco Use Types Packs/Day Years [...] Office Visit Pulmonary Koki Morgan MD [address] [facility] [address] [facility] [address] [address] (Wo rk) documented as of this encounter Results Asymptomatic - 2019 Novel Coronavirus (COVID-19) (07/31/2021 9:03 AM CDT) [facility] Method Time Signature COVID-19 Not Not 08/01/2021 [employer] Interpretation Detected Detected 4:30 AM CENTRAL LAB CDT Source Nares, left 08/01/2021 [facility] and right 4:30 AM LABORATORY CDT Specimen Anatomical Collection Method Collection Time Receive d Time (Source) Location / / Volume Laterality Swab (Source ENTIRE ANTERIOR Non-blood 07/31/2021 9:03 AM 2020 9:03 Required) NARIS / Unknown Collection / CDT AM CDT Unknown Narrative [facility] - 08/01/2021 4:30 AM CDT Test performed by Medical Assistant Internal Medicine Mediated Amplification. TMA has been shown to be equivalent to commercial real-time PCR t ests. This test has been authorized by the FDA under an Emergency Use Authorization (EUA) for use by authorized laboratories. Walker Purcell MD LAB_1 Performing Organization Address City/State/ZIP Code Phon e Number [facility] [address] [address] [facility] [address] [place] [address] documented in this encounter Visit Diagnoses Diagnosis Preop examination Preoperative examination, unspecified documented in this encounter Care Teams Manufacturing Storeperson Relationship Specialty Start Date End Date Walker Purcell MD PCP - General Family Practice 03/02/191999 [place] [address] documented as of this encounter
--- OUTSIDE RECORDS SUMMARY | 2022-09-21 10:00 | XMS_ITS | Encounter Summary ---
:1960 Author Organization [employer] Address [address] [place] [address] Care Team Providers Name Role Phone Walker Purcell MD Primary Care Provider Reason for Visit Reason Comments Follow-up Encounter Details Date Type Department Care Team Description 03/02/2019 Office Visit Specialty Center Brianne Morgan te persistent 3931 Pulmonary A, asthma with acute Medicine [address] exacerbation (Primary [address] Dx) [place] [phone] (Wo rk) Social History Tobacco Use Types Packs/Day Years Used Date Smoking Tobacco: Never Smokeless Tobacco: Never Alcohol Use Standard Drinks/Week Comments Yes 0 (1 standard drink = 0.6 oz pure alcoho l) Rare Sex Assigned at Date Recorded Not on file documented as of this encounter Last Filed Vital Signs Vital Sign Reading Time Taken Comments Blood Pressure 148/82 03/02/2019 3:22 PM CDT Pulse 99 03/02/2019 3:22 PM CDT Temperature - - Respiratory Rate - - Oxygen Saturation 96% 03/02/2019 3:22 PM CDT Inhaled Oxygen Concentration - - Weight 90.7 kg (200 lb) 03/02/2019 3:22 PM CDT Height 183.5 cm (6' 0.24) 03/02/2019 3:22 PM CDT Body Mass Index 26.94 03/02/2019 3:22 PM CDT documented in this encounter Progress Notes Brianne Morgan MD - 03/02/2019 3:30 PM CDT Note dictated BP (!) 148/82 (BP Location: Right Arm, BP Cuff Size: Adult Large) Pulse 99 Ht 6' 0.24 (1.835 m) Wt 200 lb (90.7 kg) SpO2 96% BMI 26.94 kg/m?? Brianne Morgan MD - 03/02/2019 12:00 PM CDT NAME: CECY CHRISTENSEN MR#: [id number] CSN: [id number] AUTHENTICATING CLINICIAN: Brianne Morgan MD CONFIRM #: [id number] LOC: 234 CLINIC PROGRESS NOTE DATE OF VISIT: 03/02/2019 : 1960 REASON FOR VISIT: Follow up recurrent bronchitis and asthma. SUBJECTIVE: This is a 59-year-old male who presents for routine followup of recurrent bronchitis and asthma. He was last seen by me in the pulmonary clinic in August 2018. His initial consultation was November 2017. In the past, he has also been seen at [facility] in 2014, [facility], and [facility] in August 2017 for similar symptoms. He returns today for routine followup. He was doing relatively well up until January 2019, when he developed a respiratory viral illness after going on a plane ride. At that time, he had increased postnasal drainage and decreased exercise tolerance. He is an avid swimmer and noted that his recovery times were longer than usual, and his swimming times were decreased. He was seen by a nurse practitioner in [place], [place] at the end of January 2019 and given a 5-day course of prednisone 60 mg. He did not have significant improvement of his symptoms. His has also been sick with an influenza-like illness. Currently he notes a decreased exercise tolerance and a persistent cough mainly productive of cloudysputum, although he had a tiny amount of green that he coughed up yesterday. He denies current allergy symptoms. Generally, he feels his acid reflux is well controlled, although notes that he has been drinking too much caffeine lately. For his asthma, he is on Advair HFA medium dose 2 puffs inhaled b.i.d. His original pulmonary function tests showed a mildly elevated exhaled nitric oxide at 35 and mild obstruction consistent with asthma. His diffusion and total lung capacity were normal. A high-resolution CT chest showed no evidence of interstitial lung disease, but mild air trapping was seen. He also had some tiny scattered pulmonary nodules measuring up to 3 mm, which were stable compared to prior imaging from August 2017. In the past, he has had normal immunoglobulin testing and no evidence of peripheral eosinophilia. Prior sputum sample from February 2018 grew Moraxella catarrhalis, but AFB and fungal cultures were negative. He is a lifelong nonsmoker. 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 OBJECTIVE: VITAL SIGNS: Blood pressure 148/82, heart rate 99, height 6 feet, weight 200 pounds, body mass index27, oxygen saturation 96% on room air at rest. GENERAL: Middle-aged male in no acute distress. Able to easily speak in full sentences, tangential thought processes. HEENT: Moist mucosal membranes. NECK: No lymphadenopathy. LUNGS: Clear to auscultation bilaterally. CARDIAC: Regular rate and rhythm. NEUROLOGIC: Somewhat pressured speech. RESULTS: Pulmonary function tests (today): FVC 114%, FEV1 86%, and ratio 61, consistent with mild obstruction. Exhaled nitric oxide elevated at 35. Compared to his last pulmonary function tests from August 2018, his spirometry is decreased. IMPRESSION: 1. Recurrent bronchitis: Likely multifactorial, including underlying asthma, possible acid reflux from hiatal hernia, and prior high-dose inhaled corticosteroids. He has been changed over to medium-dose Advair. Prior immunoglobulin testing was normal. A sputum sample from February 2018 grew Moraxella catarrhalis. 2. Moderate persistent asthma: His pulmonary function tests show mild obstruction with a mildly increased exhaled nitric oxide. He is on Advair HFA 115/21 two puffs inhaled b.i.d. I suspect he has a significant contributor of acid reflux. Increased symptoms and decreased spirometry lately due to viral upper respiratory infection. 3. History of alcohol abuse. 4. 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 5. Prior normal high-resolution CT February 2018, except for some tiny scattered pulmonary nodules measuring up to 3 mm. 6. Normal immunoglobulin testing and white blood cell count differential (no eosinophilia). RECOMMENDATIONS: 1. Given his increased symptoms which are quite bothersome to him, I have given him a 12-day prednisone taper starting at 40 mg daily for 3 days. He will decrease by 10 mg every 3 days. 2. Continue Advair HFA 115/21 two puffs inhaled twice a day. 3. Continue albuterol as needed. 4. Continue Aerobika b.i.d. for airway clearance. 5. Continue regular swimming. 6. No indication for antibiotics at this point, but he will call if he develops fevers or purulent sputum production. Return to pulmonary clinic in 6 months with spirometry and DLCO or sooner if needed. Total time: 40 minutes. Counseling time: 25 minutes. EAM:MEDQ C: CONFIRM #: [id number] documented in this encounter Plan of Treatment Upcoming Encounters Date Type Specialty Care Team Description 10/10/2022 Appointment Pulmonary 10/10/2022 Office Visit Pulmonary Koki Morgan MD [address] [address] (Wo rk) Scheduled Orders Name Type Priority Associated Diagnoses Order S chedule Spirometry PFT Routine Moderate persistent asthma E xpected: 09/01/2019, with acute exacerbation Expi res: 03/01/2020 Nitrous Ox Testing PFT Routine Moderate persistent as thma Expected: 09/01/2019, with acute exacerbation Expi res: 03/01/2020 documented as of this encounter Visit Diagnoses Diagnosis Moderate persistent asthma with acute ex acerbation (HRC) - Primary documented in this encounter Care Teams Revenue Cycle Analyst Relationship Specialty Start Date End Date Walker Purcell MD PCP - General Family Practice 03/02/191999 [place] [address] documented as of this encounter
--- OUTSIDE RECORDS SUMMARY | 2022-09-21 10:00 | XMS_ITS | Encounter Summary ---
:1960 [facility] Address [address] [place] [address] Care Team Providers Name Role Phone Walker Purcell MD Primary Care Provider Encounter Details Date Type Department Care Team Description 12/11/2020 Office Visit [facility], Drive- Up Preop examination Up [address] [place], [place] [address] Social History Tobacco Use Types Packs/Day Years [...] Morgan MD [address] [facility] [address] [facility] [id number] (Wo rk) documented as of this encounter Procedures Procedure Name Priority Date/Time Associated Diagnosis Comme nts 2019 NOVEL Routine 12/11/2020 7:35 AM Preop examination Resu lts for this CORONAVIRUS TEXT TRANSCRIBER procedure are i n the results section. documented in this encounter Results Asymptomatic - 2019 Novel Coronavirus (COVID-19) (12/11/2020 7:35 AM TEXT TRANSCRIBER) [facility] Method Time Signature COVID-19 Not Not 12/11/2020 [facility] Interpretation Detected Detected 7:19 PM CENTRAL LAB TEXT TRANSCRIBER Specimen Anatomical Collection Method Collection Time Receive d Time (Source) Location / / Volume Laterality Swab (Source Non-blood 12/11/2020 7:35 AM 9:24 Required) Collection / TEXT TRANSCRIBER AM TEXT TRANSCRIBER Unknown Narrative [facility] - 12/11/2020 7:19 PM TEXT TRANSCRIBER Test performed by Yarn Skeins Examiner Mediated Amplification. TMA has been shown to be equivalent to commercial real-time PCR t ests. This test has been authorized by the FDA under an Emergency Use Authorization (EUA) for use by authorized laboratories. Walker Purcell MD LAB_1 Performing Organization Address City/State/ZIP Code Phon e Number [facility] [address] [id number] documented in this encounter Visit Diagnoses Diagnosis Preop examination Preoperative examination, unspecified documented in this encounter Care Teams Automatic Hemmer Relationship Specialty Start Date End Date Walker Purcell MD PCP - General Family Practice 03/02/191999 [place] [address] documented as of this encounter
--- OUTSIDE RECORDS SUMMARY | 2022-09-21 10:00 | XMS_ITS | Encounter Summary ---
:1960 Author Organization [employer] Address [address] [address] Care Team Providers Name Role Phone Walker Purcell MD Primary Care Provider Reason for Referral (Routine) - Closed Specialty Diagnoses / Procedures Referred By Contact Refer red To Contact Procedures Brianne Morgan MD Pulmonary Function Test - 39[address] [facility] [address] Complete [place], [place] [address] Referral ID Status Reason Start Date Expiration Date Visits Requ ested Visits Authorized [id number] Closed 09/23/2019 12/22/2020 1 1 WARE PACKAGER Encounter Details Date Type Department Care Team Description 09/24/2019 Hospital Encounter Specialty Center 3931 Mild persistent asthma, Pulmonary Lab unspecified whether 3931 [facility] complicated [place], [place] [id number] Social History Tobacco Use Types Packs/Day Years [...] by mouth 0 09/12 G tablet daily. albuterol 2.5 mg/3 mL, Inhale 1 Vial every 4 90 mL 11 06/10/2020 0.083%, (PROVENTIL) hours as needed for nebulizer Wheezing or Shortness solutionIndications: of Breath. Moderate persistent asthma without complication (HRC) ALBUterol sulfate HFA Inhale 2 Puffs. 0 3 06/10/2020 108 (90 BASE) MCG/ACT inhaler fluticasone-vilanterol Inhale 1 Dose daily. 1 Inhaler 11 06/10/2020 (BREO ELLIPTA) 100-25 Rinse mouth/gargle MCG/INH after use inhalerIndications: Moderate persistent asthma without complication (HRC) ipratropium-albuterol 0 09/13/2017 (DUONEB) 0.5-2.5 MG/3ML nebulizer solution Probiotic Product (SUPER 0 08/02/2021 PROBIOTIC OR) raNITIdine (ZANTAC) 150 Take 150 mg by mouth 0 11/08/2021 MG tablet two times a day. documented as of this encounter Progress Notes Wendy Hermosillo - 09/24/2019 1:30 PM SOFTWARE PACKAGER Encounter addended by: Wendy Hermosillo on: 09/29/2019 9:24 AM Actions taken: Visit diagnoses modified, Charge Capture section accepted WARE PACKAGER documented in this encounter Plan of Treatment Upcoming Encounters Date Type Specialty Care Team Description 10/10/2022 Appointment Pulmonary 10/10/2022 Office Visit Pulmonary Koki Morgan MD [address] [facility] [address] [facility] [id number] (Wo rk) documented as of this encounter Procedures Procedure Name Priority Date/Time Associated Diagnosis Comme nts COMPLETE PULMONARY Routine 09/24/2019 1:58 PM SOFTWARE PACKAGER FUNCTION TEST documented in this encounter Results Pulmonary Function Test - Complete (09/24/2019 1:58 PM SOFTWARE PACKAGER) Specimen (Source) Anatomical Collection Method Collection Time Re ceived Time Location / / Volume Laterality 09/24/2019 1:58 PM SOFTWARE PACKAGER Brianne Morgan MD PN PFT ORDERABLES Performing Organization Address City/State/ZIP Code Phon e Number [facility] [place] documented in this encounter Visit Diagnoses Diagnosis Mild persistent asthma, unspecified whet her complicated (HRC) documented in this encounter Care Teams Parts Specialist Relationship Specialty Start Date End Date Walker Purcell MD PCP - General Family Practice 03/02/191999 [place] [address] documented as of this encounter
--- OUTSIDE RECORDS SUMMARY | 2022-09-21 10:00 | XMS_ITS | Encounter Summary ---
:1960 Author Organization [employer] Address [address], [place] [address] Care Team Providers Name Role Phone Walker Purcell MD Primary Care Provider Reason for Referral (Routine) - Closed Specialty Diagnoses / Procedures Referred By Contact Refer red To Contact Procedures Brianne Morgan MD Pulmonary Function Test - [address] [facility] [address] Complete [place], [place] [address] Referral ID Status Reason Start Date Expiration Date Visits Requ ested Visits Authorized [id number] Closed 12/12/2020 03/13/2022 1 1 TE ADMINISTRATOR Encounter Details Date Type Department Care Team Description 12/13/2020 Hospital Encounter Specialty Center 3931 Asthma, unspecified Pulmonary Lab asthma severity, 3931 [facility]. unspecified whether [place], [place]ed, [address] unspecified whether [phone] persistent Social History Tobacco Use Types Packs/Day [...] (3 inhalers please) asthma without complication (HRC) azithromycin (ZITHROMAX) Take 2 Tablets by 6 Tablet 0 12/202003/03/2021 250 MG mouth daily for 1 tabletIndications: day, THEN 1 Tablet Moderate persistent daily for 4 days. asthma without complication (HRC) drug not in computer Magnesium Carbonate 0 08/02/2021 with Melatonin fluticasone-vilanterol Inhale 1 Dose daily. 1 Each 07/19/2021 (BREO ELLIPTA) 100-25 Rinse mouth/gargle MCG/INH after use inhalerIndications: Moderate persistent asthma without complication (HRC) ipratropium-albuterol 0 09/13/2017 (DUONEB) 0.5-2.5 MG/3ML nebulizer solution montelukast (SINGULAIR) Take 1 Tablet by 90 Tablet 3 201904/03/2021 10 MG tabletIndications: mouth every evening. Moderate persistent asthma without complication (HRC) predniSONE (DELTASONE) Take 4 tabs daily x3 30 Tablet 0 12/202008/02/2021 10 MG tabletIndications: days, 3 tabs daily x3 Moderate persistent days, 2 tabs daily x3 asthma without days, 1 tab daily x3 complication (HRC) days, then stop Probiotic Product (SUPER 0 08/02/2021 PROBIOTIC OR) raNITIdine (ZANTAC) 150 Take 150 mg by mouth 0 11/08/2021 MG tablet two times a day. documented as of this encounter Plan of Treatment Upcoming Encounters Date Type Specialty Care Team Description 10/10/2022 Appointment Pulmonary 10/10/2022 Office Visit Pulmonary Koki Morgan MD [address] [facility] [address] (Wo rk) documented as of this encounter Procedures Procedure Name Priority Date/Time Associated Diagnosis Comme nts COMPLETE PULMONARY Routine 12/13/2020 11:09 AM ESTATE ADMINISTRATOR FUNCTION TEST documented in this encounter Results Pulmonary Function Test - Complete (12/13/2020 11:09 AM ESTATE ADMINISTRATOR) Specimen (Source) Anatomical Collection Method Collection Time Re ceived Time Location / / Volume Laterality 12/13/2020 11:09 AM ESTATE ADMINISTRATOR Brianne Morgan MD PN PFT ORDERABLES Performing Organization Address City/State/ZIP Code Phon e Number PN [place] documented in this encounter Visit Diagnoses Diagnosis Asthma, unspecified asthma severity, uns pecified whether complicated, unspecified whether persistent (HRC) documented in this encounter Care Teams Supervisor Receiving And Processing Relationship Specialty Start Date End Date Walker Purcell MD PCP - General Family Practice 03/02/191999 [place] [address] documented as of this encounter
--- OUTSIDE RECORDS SUMMARY | 2022-09-21 10:00 | XMS_ITS | Encounter Summary ---
:1960 Author Organization [email or web address] Address [address], [place] [address] Care Team Providers Name Role Phone Walker Purcell MD Primary Care Provider Reason for Visit Reason Comments Refill Encounter Details Date Type Department Care Team Description 04/02/2021 Refill Specialty Center 3931 Lakhwinder Morgan MD Refill Pulmonary Medicine [address] [facility] [address] [place] [address] [place], [place] [address] [phone] Social History Tobacco Use Types Packs/Day Years Used Date Smoking Tobacco: Never Smokeless Tobacco: Never Alcohol Use Standard Drinks/Week Comments Yes 1 (1 standard drink = 0.6 oz pure alcoho l) about 5 per month Sex Assigned at Date Recorded Not on file documented as of this encounter Nursing Notes Ruthann Parrish RN - 04/03/2021 11:48 AM CDT Rx refilled per protocol. documented in this encounter Plan of Treatment Upcoming Encounters Date Type Specialty Care Team Description 10/10/2022 Appointment Pulmonary 10/10/2022 Office Visit Pulmonary Koki Morgan MD [address] [facility] [address] [facility] [id number] (Wo rk) documented as of this encounter Visit Diagnoses Diagnosis Moderate persistent asthma without compl ication (HRC) Unspecified asthma documented in this encounter Care Teams Body Component Engineer Relationship Specialty Start Date End Date Walker Purcell MD PCP - General Family Practice 03/02/191999 [place] [address] documented as of this encounter
--- OUTSIDE RECORDS SUMMARY | 2022-09-21 10:00 | XMS_ITS | Encounter Summary ---
:1960 Author Organization [facility] Address [address] [place] [address] Care Team Providers Name Role Phone Walker Purcell MD Primary Care Provider Encounter Details Date Type Department Care Team Description 06/08/[address], Drive-Up Moderate persistent asthma w [facility] complication; [address] [facility] Encounter for screening for [place] [address] Social History Tobacco Use Types Packs/Day Years [...] Office Visit Pulmonary Koki Morgan MD [address] [facility] [address] [facility] [id number] (Wo rk) documented as of this encounter Procedures Procedure Name Priority Date/Time Associated Comments Diagnosis 2019 NOVEL STAT 06/08/2020 8:52 AM Moderate persistent Re sults for this CORONAVIRUS CDT asthma without procedure are in complication the results Encounter for section. screening for other viral diseases documented in this encounter Results 2019 Novel Coronavirus (COVID-19) (06/08/2020 8:52 AM CDT) [facility] Time Signature COVID-19 Not Not 06/08/2020 [facility] Interpretation Detected Detected 8:52 PM CENTRAL LAB CDT Specimen Anatomical Collection Method Collection Time Receive d Time (Source) Location / / Volume Laterality Swab (Source Non-blood 06/08/2020 8:52 AM 0 Required) Collection / CDT 12:00 PM CDT Unknown Narrative [facility] - 06/08/2020 8:52 PM CDT Testing has been performed by Sample Shoe Inspector And Reworker Mediated Amplification. This test has been authorized by the FDA under an Emergency Use Authorization (EUA) for use by authorized laboratories. Brianne Morgan MD LAB_1 Performing Organization Address City/State/ZIP Code Phon e Number [facility] [address] [address] documented in this encounter Visit Diagnoses Diagnosis Moderate persistent asthma without compl ication (HRC) Unspecified asthma Encounter for screening for other viral diseases documented in this encounter Care Teams Vice President Of Software Engineering Relationship Specialty Start Date End Date Walker Purcell MD PCP - General Family Practice 03/02/191999 [place] [address] documented as of this encounter
--- OUTSIDE RECORDS SUMMARY | 2022-09-21 10:00 | XMS_ITS | Encounter Summary ---
:1960 Author Organization [employer] Address [address] [address] Care Team Providers Name Role Phone Walker Purcell MD Primary Care Provider Encounter Details Date Type Department Care Team Description 01/06/2021 Orders Only Initial Department Provider, Kirstin, [facility] SULEMA TRUONG MD [place], [place] [address] Interface provider [phone] [facility] [place] [address] Social History Tobacco Use Types Packs/Day Years [...] 10/10/2022 Office Visit Pulmonary Koki Morgan MD [address] [facility] [address] [facility] [id number] (Wo rk) documented as of this encounter Procedures Procedure Name Priority Date/Time Associated Diagnosis Comme nts PULMONARY TEST MI 01/06/2021 Results fo r this procedure are in the resu lts section. documented in this encounter Results PULMONARY TEST MI (01/06/2021) Narrative This result has an attachment that is no t available. Interface Provider DUMMY/OTHER/AR documented in this encounter Visit Diagnoses Not on filedocumented in this encounter Care Teams Mds Coordinator Relationship Specialty Start Date End Date Walker Purcell MD PCP - General Family Practice 03/02/191999 [place] [address] documented as of this encounter
--- OUTSIDE RECORDS SUMMARY | 2022-09-21 10:00 | XMS_ITS | Encounter Summary ---
:1960 Author Organization [employer] Address [address] [place] [address] Care Team Providers Name Role Phone Walker Purcell MD Primary Care Provider Reason for Visit Reason Comments Follow-up Encounter Details Date Type Department Care Team Description 09/24/2019 Office Visit Specialty Center Brianne Morgan persistent asthma without complication (Primary Dx); 3931 Pulmonary A, Hiatal hernia with GERD; Medicine [address] Post-nasal drainage; [address] Need for prophylactic vaccination [place] [address] [phone] (Wo rk) Social History Tobacco Use Types Packs/Day Years Used Date Smoking Tobacco: Never Smokeless Tobacco: Never Alcohol Use Standard Drinks/Week Comments Yes 1 (1 standard drink = 0.6 oz pure alcoho l) Rare Sex Assigned at Date Recorded Not on file documented as of this encounter Last Filed Vital Signs Vital Sign Reading Time Taken Comments Blood Pressure 125/82 09/24/2019 2:13 PM GOVERNMENT AFFAIRS FELLOW Pulse 82 09/24/2019 2:13 PM GOVERNMENT AFFAIRS FELLOW Temperature - - Respiratory Rate - - Oxygen Saturation 95% 09/24/2019 2:13 PM GOVERNMENT AFFAIRS FELLOW Inhaled Oxygen Concentration - - Weight 89.8 kg (198 lb) 09/24/2019 2:13 PM GOVERNMENT AFFAIRS FELLOW Height 181 cm (5' 11.25) 09/24/2019 2:13 PM GOVERNMENT AFFAIRS FELLOW Body Mass Index 27.42 09/24/2019 2:13 PM GOVERNMENT AFFAIRS FELLOW documented in this encounter Patient Instructions Patient InstructionsMillBrianne romero MD - 09/24/2019 2:15 PM CST 1. Flu shot today 2. Trial of changing Advair HFA to Breo (100/25 dose) 1 puff daily 3. Go on [employer] to see if there is a coupon available 4. Keep your acid reflux under good control 5. Try Darshan Med nasal saline irrigation to minimize your post-nasal drainage. This could also be affecting your singing. 6. Other options for Breo: Advair Diskus, Symbicort, or Dulera 7. Call for worsening respiratory symptoms RNMENT AFFAIRS FELLOW documented in this encounter Progress Notes Brianne Morgan MD - 09/24/2019 2:15 PM CST Note dictated BP 125/82 (BP Location: Right Arm, BP Cuff Size: Regular) Pulse 82 Ht 5' 11.25 (1.81 m) Wt 198 lb (89.8 kg) SpO2 95% BMI 27.42 kg/m?? RNMENT AFFAIRS FELLOW Brianne Morgan MD - 09/24/2019 12:00 PM CST NAME: CECY CHRISTENSEN MR#: [id number] CSN: [id number] AUTHENTICATING CLINICIAN: Brianne Morgan MD CONFIRM #: [id number] LOC: 234 CLINIC PROGRESS NOTE DATE OF VISIT: 09/24/2019 : 1960 REASON FOR VISIT: Followup asthma and prior history of recurrent bronchitis. SUBJECTIVE: This is a 59-year-old male with a history of asthma, recurrent bronchitis, hiatal hernia with GERD, and allergic rhinitis who presents today for routine followup. He was last seen by me in the pulmonary clinic on March 02, 2019. His initial consultation was November 2017. In the past, he has also been seen at [facility] in 2014, [facility], and [facility] in August 2017 for similar symptoms. He returns today for routine followup. For his asthma, he continues on Advair HFA 115/21 two puffs 3to 4 days per week. He does limit his Advair as it seems to worsen his hoarseness which affects his singing. He has had a productive cough especially in the morning. He denies shortness of breath or wheezing. He has been swimming on a regular basis without limitation. He did require a prednisone taper in August 2019, for increased asthma symptoms. He has been tryingto control his diet to minimize acid reflux as this has been a major contributor to ongoing asthma symptoms for him. He does note increased nasal congestion with postnasal drainage and a more productive cough especially in the morning. He is a lifelong nonsmoker. 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 OBJECTIVE: VITAL SIGNS: Blood pressure 125/82, heart rate 82, height 5 feet 11-1/4 inches, weight 198 pounds, body mass index 27.4. Oxygen saturation 95% on room air at rest. GENERAL: Healthy-appearing male, no acute distress. Able to easily speak in full sentences. HEENT: Moist mucosal membranes. NECK: No lymphadenopathy. LUNGS: Clear to auscultation bilaterally. CARDIAC: Regular rate and rhythm. RESULTS: Pulmonary function tests (today): FVC 133%, FEV1 111%, and ratio 67, consistent with mild obstruction. Exhaled nitric oxide 15 (decreased from 35 at his last visit in February 2019). His spirometry is improved compared to February 2019. IMPRESSION: 1. Recurrent bronchitis: Suspect multifactorial, including underlying asthma, acid reflux from his hiatal hernia, and prior high-dose inhaled steroids. Prior immunoglobulin testing was normal. A sputumsample from February 2018, grew Moraxella catarrhalis. 2. Moderate persistent asthma: Symptoms generally well controlled on Advair HFA 115/21 two puffs inhaled 3 to 4 times per week. He has been avoiding b.i.d. dosing and taking the Advair 7 days a week asit does seem to affect his voice quality. His asthma seems to be significantly affected by acid reflux. 3. Intermittent hoarseness: Could be due to Advair and postnasal drainage. 4. Allergic rhinitis with postnasal drainage: Likely a contributor to his voice quality changes and morning cough. He does not have symptoms to suggest active infection. I suspect this is sinus drainage, possibly from allergies. 5. History of alcohol abuse. 6. 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 7. Prior normal high-resolution CT February 2018 except for some tiny scattered pulmonary nodules measuring up to 3 mm. 8. Normal immunoglobulin testing and white blood cell count differential (no eosinophilia). RECOMMENDATIONS: 1. Start NeilMed nasal saline irrigation. 2. Influenza vaccine given today. 3. Trial of changing Advair HFA 115/21 over to Breo 100/25 one puff daily. 4. He was directed to [employer] to see if coupons would be available. 5. He was given the name of alternatives to Breo and Advair HFA. 6. Continue Aerobika b.i.d. for airway clearance. 7. Continue regular exercise. 8. No indication for antibiotics or prednisone at this point. 9. Counseled on the importance of keeping his acid reflux under good control. Return to pulmonary clinic in 6 months with spirometry and exhaled nitric oxide. Total Time: 40 minutes. Counseling Time: 25 minutes. EAM:MEDQ C: CONFIRM #: [id number] RNMENT AFFAIRS FELLOW documented in this encounter Plan of Treatment Upcoming Encounters Date Type Specialty Care Team Description 10/10/2022 Appointment Pulmonary 10/10/2022 Office Visit Pulmonary Koki Morgan MD [address] [facility] [address] [facility] [id number] (Wo rk) Scheduled Orders Name Type Priority Associated Diagnoses Order S chedule Spirometry PFT Routine Moderate persistent asthma 1 Occurrences starting without complication 019 until 09/23/2020 Nitrous Ox Testing PFT Routine Moderate persistent as thma 1 Occurrences starting without complication until 09/23/2020 documented as of this encounter Visit Diagnoses Diagnosis Moderate persistent asthma without compl ication (HRC) - Primary Unspecified asthma Hiatal hernia with GERD Post-nasal drainage Unspecified sinusitis (chronic) Need for prophylactic vaccination and in oculation against influenza documented in this encounter Care Teams Bar Welder Relationship Specialty Start Date End Date Walker Purcell MD PCP - General Family Practice 03/02/191999 [place] [address] documented as of this encounter
--- OUTSIDE RECORDS SUMMARY | 2022-09-21 10:00 | XMS_ITS | Encounter Summary ---
:1960 Author Organization [employer] Address [address] [place] [address] Care Team Providers Name Role Phone Walker Purcell MD Primary Care Provider Reason for Visit Reason Comments Symptoms Encounter Details Date Type Department Care Team Description 11/30/2019 Telephone Specialty Center 3931 Lakhwinder Morgan MD Symptoms Pulmonary Medicine 3931 [facility] 39[address] [facility] [address] [place] [address] [place] [address] [phone] (Wo rk) Social History Tobacco Use Types Packs/Day Years Used Date Smoking Tobacco: Never Smokeless Tobacco: Never Alcohol Use Standard Drinks/Week Comments Yes 1 (1 standard drink = 0.6 oz pure alcoho l) Rare Sex Assigned at Date Recorded Not on file documented as of this encounter Nursing Notes Palak Funk RN - 12/01/2019 4:12 PM CST Left pt detailed VM updating that Rx for prednisone was sent, no antibiotics indicated at this time,and to call us back if he does not feel better or starts coughing up yellow/green sputum. ING HELPER Brianne Morgan MD - 12/01/2019 3:57 PM CST It sounds like Timur is having an asthma exacerbation. So, the prednisone was a good idea, but he likely needs a slowly taper. At this point, it does not sound like he needs antibiotics, but if he starts coughing up yellow/green sputum or feels he is worsening, please have him call back. Rx for prednisone taper sent to his pharmacy. Thanks. ING HELPER Lakshmi Jhaveri, RN - 11/30/2019 9:53 AM CST Pt calls to state that for the last few weeks he's been very wheezy with chest tightness. Pt also reports a productive cough every other day. Sputum is milky white. Denies fever. Pt does state that he had leftover Prednisone, so he put himself on 40mg every day for 6 days. He finished this Tuesday 11/28 but still does not feel 100%. Pt also using Ventolin and albuterol nebs PRN. Breo daily, along with Zantac. Pt reports that aerobika does not help him, even when he uses after nebbing. Uses [facility] pharmacy in [place]. Pt aware that Dr. Morgan is out of the clinic today. Dr. Morgan, please advise if you have any recommendations for pt at this time, thank you. ING HELPER documented in this encounter Plan of Treatment Upcoming Encounters Date Type Specialty Care Team Description 10/10/2022 Appointment Pulmonary 10/10/2022 Office Visit Pulmonary Koki Morgan MD [address] [facility] [address] [facility] [address] [address] (Wo rk) documented as of this encounter Visit Diagnoses Diagnosis Moderate persistent asthma with exacerba tion (HRC) - Primary Unspecified asthma, with exacerbation documented in this encounter Care Teams Fox Raiser Relationship Specialty Start Date End Date Walker Purcell MD PCP - General Family Practice 03/02/191999 [place] [address] documented as of this encounter
--- OUTSIDE RECORDS SUMMARY | 2022-09-21 10:00 | XMS_ITS | Encounter Summary ---
:1960 Author Organization [employer] Address [address] [address] Care Team Providers Name Role Phone Walker Purcell MD Primary Care Provider Reason for Referral (Routine) - New Request Specialty Diagnoses / Procedures Referred By Contact Refer red To Contact Procedures Brianne Morgan MD Pulmonary Function Test - 39[address] [facility] [address] Complete [place], [place] [address] Referral ID Status Reason Start Date Expiration Date Visits V isits Requested Authorized [id number] New Request 08/01/2021 10/31/2022 1 1 Encounter Details Date Type Department Care Team Description 08/02/2021 Hospital Encounter Specialty Center 3931 Asthma, unspecified Pulmonary Lab asthma severity, 3931 [facility]. unspecified whether [place], [place] complic ated, [id number] unspecified whether [phone] persistent Social History Tobacco Use Types Packs/Day [...] by mouth. 0 0 02/21/2013 MG capsule famotidine (PEPCID AC) 0 06/25/2021 10 MG tablet montelukast (SINGULAIR) Take 1 Tablet by 90 Tablet 3 2020 10 MG tablet mouth every evening. valACYclovir (VALTREX) 1 Take 1 g by mouth 0 09/12 G tablet daily. azithromycin (ZITHROMAX) Take 2 Tablets by 6 Tablet 3 07/1308/07/2021 250 MG tablet mouth daily for 1 day, THEN 1 Tablet daily for 4 days. ALBUterol sulfate HFA Inhale 1-2 Puffs 1 Each 08/02/20 21 03/14/2022 (VENTOLIN HFA) 108 (90 every 4 hours as Base) MCG/ACT inhaler needed for Wheezing. ipratropium-albuterol Inhale 3 mL every 4 120 mL 11 08/0203/14/2022 (DUONEB) 0.5-2.5 (3) hours as needed for mg/3ml nebulizer Wheezing or Shortness solution of Breath. raNITIdine (ZANTAC) 150 Take 150 mg by mouth 0 11/08/2021 MG tablet two times a day. documented as of this encounter Plan of Treatment Upcoming Encounters Date Type Specialty Care Team Description 10/10/2022 Appointment Pulmonary 10/10/2022 Office Visit Pulmonary Koki Morgan MD [address] [address] (Wo rk) documented as of this encounter Procedures Procedure Name Priority Date/Time Associated Diagnosis Comme nts COMPLETE PULMONARY Routine 08/02/2021 9:12 AM CDT FUNCTION TEST documented in this encounter Results Pulmonary Function Test - Complete (08/02/2021 9:12 AM CDT) Specimen (Source) Anatomical Collection Method Collection Time Re ceived Time Location / / Volume Laterality 08/02/2021 9:12 AM CDT Brianne Morgan MD [facility] PFT ORDERABLES Performing Organization Address City/State/ZIP Code Phon e Number [place] documented in this encounter Visit Diagnoses Diagnosis Asthma, unspecified asthma severity, uns pecified whether complicated, unspecified whether persistent (HRC) documented in this encounter Care Teams Curtain Hemmer Automatic Relationship Specialty Start Date End Date Walker Purcell MD PCP - General Family Practice 03/02/191999 [place] [address] documented as of this encounter
--- OUTSIDE RECORDS SUMMARY | 2022-09-21 10:00 | XMS_ITS | Encounter Summary ---
:1960 Author Organization [employer] Address [address], [place] [address] Care Team Providers Name Role Phone Walker Purcell MD Primary Care Provider Reason for Visit Reason Comments Symptoms QUESTIONS, GENERAL Encounter Details Date Type Department Care Team Description 2020 Telephone Specialty Center 3931 Brianne Morgan , Symptoms; QUESTIONS, Pulmonary Medicine MD GENERAL 3931 [facility] [address] [place], [place] [address] [address] [place], [place] [phone] (Wo rk) Social History Tobacco Use Types Packs/Day Years Used Date Smoking Tobacco: Never Smokeless Tobacco: Never Alcohol Use Standard Drinks/Week Comments Yes 1 (1 standard drink = 0.6 oz pure alcoho l) Rare Sex Assigned at Date Recorded Not on file documented as of this encounter Nursing Notes Lakshmi Jhaveri RN - 02/01/2020 3:37 PM CDT Pt informed and demonstrates understanding. No further questions at this time. Brianne Morgan MD - 02/01/2020 3:24 PM CDT Yes, I would recommend he start Singulair and increase his Breo to the 200/25 dosing for now, given his increased symptoms. Rxs sent. He should continue DuoNebs QID. Thanks. Priscila Hunter RN - 02/01/2020 2:46 PM CDT Pt said that his symptoms were unlike anything he has had before. His chest felt very tight for a couple days and he was exremely short of breath. Also had neck and back stiffness and mild malaise. Feels he may have had a fever one day. He was on prednisone x7 days and said it did not help at all during this episode. He has been isolating at home, as has his . He is taking nexium and does not feel his allergies are affection him right now He has been on singulair in the past and is willing to try it again if needed. He will increase his duo nebs to qid untilhis breathing improves. He feels the breo is helping, but is wondering if he could go on the higher dose for a couple months until he is doing better. Please advise on singulair and breo ellipta. Ana Hawkins RN - 02/01/2020 2:14 PM CDT Left message for patient to call back. Brianne Morgan MD - 01/30/2020 11:21 AM CDT 59-year-old male with a history of asthma, recurrent bronchitis, hiatal hernia with GERD, and allergic rhinitis. Please let him know the mild hyperinflation on his CXR is consistent with his known history of asthma. As was pointed out, I'm not able to see any of these recent records. I'm only able to see old results from 2015 at [facility] and February 2018 from here. All the records from [place] are from 2015. I think his primary provider is in [place]. Streptococci is generally not a resistant organism. So, most respiratory antibiotics should cover this. He should be doing scheduled nebs 4 times a day, which should help with the shortness of breath and chest tightness. I believe he has DuoNebs at home, but please verify. Please ask him the plan on the prednisone (i.e. how many days, is there a taper, etc). Also, make sure his allergies and acid refluxare under good control. He may need the addition of Singulair. Thanks. Lakshmi Jhaveri RN - 2020 10:10 AM CDT Pt calls to state that he's been in to see his PCP several times in the last couple of months for different lung issues. He's been put on 3 courses of Prednisone, and 2 different courses of abx. His PCP did a CXR and he was told it showed mild hyperinflation, but other than that his lungs were clear. PCP also ordered a sputum sample which showed Streptococci. He has been on Prednisone 40mg for 9 days now, but still reports he is SOB with chest tightness. Denies any sputum production, or fever at this time. Advised pt that we do not have access to any of his records/imaging since he sees his PCP outside of [place]. Records are also not available in [facility]where. Provided him with our fax number, andadvised him to get his records faxed to the clinic for Dr. Morgan's review so she has a better idea of what is going on. Dr. Morgan, please advise if you have any recommendations for pt at this time, thank you. documented in this encounter Plan of Treatment Upcoming Encounters Date Type Specialty Care Team Description 10/10/2022 Appointment Pulmonary 10/10/2022 Office Visit Pulmonary Koki Morgan MD [address] [place] [address] [place] [address] [address] (Wo rk) documented as of this encounter Visit Diagnoses Diagnosis Moderate persistent asthma without compl ication (HRC) - Primary Unspecified asthma documented in this encounter Care Teams Cement Grinding Mill Operator Relationship Specialty Start Date End Date Walker Purcell MD PCP - General Family Practice 03/02/191999 [place] [address] documented as of this encounter
--- OUTSIDE RECORDS SUMMARY | 2022-09-21 10:00 | XMS_ITS | Encounter Summary ---
:1960 Author Organization [employer] Address [address] [address] Care Team Providers Name Role Phone Walker Purcell MD Primary Care Provider Reason for Visit Reason Comments Refill Encounter Details Date Type Department Care Team Description 03/03/2021 Refill Specialty Center 3931 Lakhwinder Morgan MD Refill Pulmonary Medicine [address] [facility] [address] [place] [address] [place], [place] [address] [phone] Social History Tobacco Use Types Packs/Day Years Used Date Smoking Tobacco: Never Smokeless Tobacco: Never Alcohol Use Standard Drinks/Week Comments Yes 1 (1 standard drink = 0.6 oz pure alcoho l) about 5 per month Sex Assigned at Date Recorded Not on file documented as of this encounter Nursing Notes Ruthann Parrish RN - 03/03/2021 11:[address] Morgan, please sign pended Rx if appropriate. Thank you! documented in this encounter Plan of Treatment Upcoming Encounters Date Type Specialty Care Team Description 10/10/2022 Appointment Pulmonary 10/10/2022 Office Visit Pulmonary Koki Morgan MD [address] [facility] [address] [facility] [id number] (Wo rk) documented as of this encounter Visit Diagnoses Diagnosis Moderate persistent asthma without compl ication (HRC) Unspecified asthma documented in this encounter Care Teams Product Operations Associate Relationship Specialty Start Date End Date Walker Purcell MD PCP - General Family Practice 03/02/191999 [place] [address] documented as of this encounter
--- OUTSIDE RECORDS SUMMARY | 2022-09-21 10:00 | XMS_ITS | Encounter Summary ---
:1960 Author Organization [employer] Address [address], [place] [address] Care Team Providers Name Role Phone Walker Purcell MD Primary Care Provider Reason for Visit Reason Comments Refill Encounter Details Date Type Department Care Team Description 07/17/2021 Refill Specialty Center 3931 Lakhwinder Morgan MD Refill Pulmonary Medicine 3931 [facility] [address] [place] [address] [place], [place] [address] [phone] Social History Tobacco Use Types Packs/Day Years Used Date Smoking Tobacco: Never Smokeless Tobacco: Never Alcohol Use Standard Drinks/Week Comments Yes 1 (1 standard drink = 0.6 oz pure alcoho l) about 5 per month Sex Assigned at Date Recorded Not on file documented as of this encounter Nursing Notes Shasta Fenton RN - 07/19/2021 9:44 AM CDT Pt scheduled 08/02/21. Rx's sent per protocol. documented in this encounter Plan of Treatment Upcoming Encounters Date Type Specialty Care Team Description 10/10/2022 Appointment Pulmonary 10/10/2022 Office Visit Pulmonary Koki Morgan MD [address] [facility] [address] [facility] [id number] (Wo rk) documented as of this encounter Visit Diagnoses Diagnosis Moderate persistent asthma without compl ication (HRC) Unspecified asthma documented in this encounter Care Teams Seafood And Service Meat Manager Relationship Specialty Start Date End Date Walker Purcell MD PCP - General Family Practice 03/02/191999 [place] [address] documented as of this encounter
--- OUTSIDE RECORDS SUMMARY | 2022-09-21 10:00 | XMS_ITS | Encounter Summary ---
:1960 Author Organization [facility] Address [address], [place] [address] Care Team Providers Name Role Phone Walker Purcell MD Primary Care Provider Encounter Details Date Type Department Care Team Description 07/31/2021 Lab Visit [facility] [place] [facility] Preop examination [address] [place] [address] Social History Tobacco Use Types Packs/Day Years [...] 10/10/2022 Office Visit Pulmonary Koki Morgan MD [address] [facility] [address] [facility] [address] (Wo rk) documented as of this encounter Procedures Procedure Name Priority Date/Time Associated Diagnosis Comme nts 2019 NOVEL Routine 07/31/2021 9:03 AM Preop examination Resu lts for this CORONAVIRUS CDT procedure are i n the results section. documented in this encounter Results Asymptomatic - 2019 Novel Coronavirus (COVID-19) (07/31/2021 9:03 AM CDT) [facility] Method Time Signature COVID-19 Not Not 08/01/2021 ClickOn Interpretation Detected Detected 4:30 AM CENTRAL LAB CDT Source Nares, left 08/01/2021 [facility] and right 4:30 AM LABORATORY CDT Specimen Anatomical Collection Method Collection Time Receive d Time (Source) Location / / Volume Laterality Swab (Source ENTIRE ANTERIOR Non-blood 07/31/2021 9:03 AM 2020 9:03 Required) NARIS / Unknown Collection / CDT AM CDT Unknown Narrative [facility] - 08/01/2021 4:30 AM CDT Test performed by Sheet Mill Supervisor Mediated Amplification. TMA has been shown to be equivalent to commercial real-time PCR t ests. This test has been authorized by the FDA under an Emergency Use Authorization (EUA) for use by authorized laboratories. Walker Purcell MD LAB_1 Performing Organization Address City/State/[facility] Code Phon e Number [facility] [address] [address] [facility] [address] [place] [address] documented in this encounter Visit Diagnoses Diagnosis Preop examination Preoperative examination, unspecified documented in this encounter Care Teams Diesel Engine Ii Pipe Fitter Relationship Specialty Start Date End Date Walker Purcell MD PCP - General Family Practice 03/02/[address] [place] [address] documented as of this encounter
--- OUTSIDE RECORDS SUMMARY | 2022-09-21 10:00 | XMS_ITS | Encounter Summary ---
:1960 Author Organization [employer] Address [address] [place] [address] Care Team Providers Name Role Phone Tyrese Arreaga MD Primary Care Provider Reason for Visit Reason Comments Pulmonary Follow-up Encounter Details Date Type Department Care Team Description 08/20/2018 Office Visit Specialty Center Brianne Morgan p ersistent asthma, unspecified whether complicated (Primary Dx); 3931 Pulmonary AMD Hiatal hernia; Medicine [address] Bronchitis, mucopurulent rec urrent (HRC) [address] [facility] [address] [place] [address] [phone] (Wo rk) Social History Tobacco Use Types Packs/Day Years Used Date Smoking Tobacco: Never Smokeless Tobacco: Never Alcohol Use Standard Drinks/Week Comments Yes 0 (1 standard drink = 0.6 oz pure alcoho l) Rare Sex Assigned at Date Recorded Not on file documented as of this encounter Last Filed Vital Signs Vital Sign Reading Time Taken Comments Blood Pressure 122/86 08/20/2018 9:41 AM CDT Pulse 70 08/20/2018 9:41 AM CDT Temperature - - Respiratory Rate - - Oxygen Saturation 98% 08/20/2018 9:41 AM CDT Inhaled Oxygen Concentration - - Weight 90.3 kg (199 lb) 08/20/2018 9:41 AM CDT Height 183.5 cm (6' 0.25) 08/20/2018 9:41 AM CDT Body Mass Index 26.8 08/20/2018 9:41 AM CDT documented in this encounter Patient Instructions Patient InstructionsMillBrianne romero MD - 08/20/2018 9:45 AM CDT 1. Change Advair inhaler to 1 puff twice a day. Remember to rinse and gargle after each use. 2. Continue albuterol as needed 3. Please call the pulmonary clinic nurse line at [phone] with any respiratory questions or concerns. documented in this encounter Progress Notes Brianne Morgan MD - 08/20/2018 1:12 PM CDT NAME: CECY CHRISTENSEN MR#: [id number] CSN: [id number] AUTHENTICATING CLINICIAN: Brianne Morgan MD CONFIRM #: [id number] LOC: 234 CLINIC PROGRESS NOTE DATE OF VISIT: 08/20/2018 : 1960 REASON FOR VISIT: Follow up recurrent bronchitis and asthma. SUBJECTIVE: This is a 58-year-old male who presents today for routine followup of recurrent bronchitis and asthma. He was last seen by me in [place] in February 2018, and seen in initial consultation in November 2017. In the past, he has also been seen at [facility] in 2014, [facility], and [facility] in August 2017, for similar symptoms. The patient is a challenging historian with tangential thought processes. His original pulmonary function tests showed a mildly elevated exhaled nitric oxide at 35 parts per billion and mild obstruction, consistent with asthma. His diffusion and total lung capacity were normal. He had a high-resolution CT chest that showed no evidence of interstitial lung disease, and mild air trapping was noted. He also had some tiny scattered pulmonary nodules measuring up to 3 mm which were stable compared to prior imaging from August 2017. In the past, he has also had normal immunoglobulin testing and a normal white blood cell count differential. A sputum sample from February 2018, grew Moraxella catarrhalis, but AFB and fungal cultures were negative. Since his last visit, he had a difficult summer due to respiratory infections. He notes that this started in late April, and he ended up requiring 3 courses of prednisone and 2 courses of antibiotics with eventual resolution of his symptoms the 1st week in July. He did not call our clinic during this time but states that he was seen [facility] or possibly at [facility]. I was not able to find any records in the [facility] system that he was seen. He is an avid swimmer and was able to complete a swimrace the last week in May. He notes that during the time of his illness, he was coughing up significantly sticky mucus. He was told by an outside physician that he should have Spiriva to break up the mucus, but this was 1000 dollars [id number] cost. He also notes that he was drinking a lot more soda than usual which could have exacerbated his acid reflux. He does have a hiatal hernia. He is an avid swimmer and has been swimming regularly without limitations. He had a prior swallow evaluation which was normal. He is a lifelong nonsmoker. 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 OBJECTIVE: Blood pressure 122/86, heart rate 70, height 6 feet, weight 199 pounds, body mass index 26.8, oxygensaturation 98% on room air at rest. GENERAL: Middle-age male in no acute distress, able to easily speak in full sentences. HEENT: Moist mucosal membranes without lesions. NECK: No lymphadenopathy. LUNGS: Clear to auscultation bilaterally. CARDIAC: Regular rate and rhythm. NEUROLOGIC: Alert, appropriate with questions, somewhat pressured speech. RESULTS: Pulmonary function tests (today): FVC 119%, FEV1 93%, and ratio 63, consistent with mild obstruction. Exhaled nitric oxide is 30 parts per billion (decreased from 43 on February 13, 2018). High-resolution CT chest from February 13, 2018, showed no evidence of interstitial lung disease or bronchiectasis. He had some mild air trapping and some scattered tiny pulmonary nodules measuring up to 3mm. IMPRESSION: 1. Recurrent bronchitis: I suspect that this is multifactorial including some underlying asthma, possible acid reflux from a hiatal hernia, and prior high- dose inhaled steroids. He was changed to the medium dose of Advair. In further discussion today, he notes that he periodically uses Advair for a few days and then stops due to hoarseness, as he will be singing on Saturday and Saturday nights. He is supposed to be doing Advair 115/21 two puffs inhaled b.i.d. In the past, he has had normal immunoglobulin testing and white blood cell count differential. A swallowing evaluation revealed no evidence ofaspiration. He had a bronchoscopy in 2014 at [facility] which by report was normal. Prior sputum culture from February 2018, grew Moraxella catarrhalis which was treated. 2. Moderate persistent asthma: His pulmonary function tests show mild obstruction with a mildly increased exhaled nitric oxide. He is on Advair HFA 115/21 and is supposed to be doing 2 puffs b.i.d., although he does not use this as directed. He has a persistent elevated exhaled nitric oxide indicatingongoing airway inflammation. 3. History of alcohol abuse: Cut back in the past to help minimize acid reflux. 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 5. Normal high-resolution CT except for tiny pulmonary nodules measuring up to 3 mm and air trapping. No evidence of interstitial lung disease. 6. Normal immunoglobulin testing and white blood cell count differential. RECOMMENDATIONS: 1. Extended counseling session again today regarding the appropriate use of inhalers. 2. Continue Advair HFA 115/21 at 1 puff b.i.d. 3. Continue albuterol as needed. 4. Continue Aerobika b.i.d. for airway clearance. 5. I have asked the patient to call the pulmonary clinic if he is having increased respiratory symptoms. 6. We reviewed that is Spiriva inhalers are not used for mucolytic, and this is not indicated for his condition. 7. If he has recurrence of symptoms, would recommend repeat sputum testing for AFB, fungal, and routine cultures. 8. Multiple questions again answered and extended counseling again today. Return to pulmonary clinic in 6 months with spirometry and DLCO. Total Time: 40 minutes. Counseling Time: 25 minutes. EAM:MEDQ C: CONFIRM #: [id number] Brianne Morgan MD - 08/20/2018 9:45 AM CDT Note dictated BP 122/86 (BP Location: Right Arm, BP Cuff Size: Adult Regular) Pulse 70 Ht 6' 0.25 (1.835 m) Wt 199 lb (90.3 kg) SpO2 98% BMI 26.8 kg/m2 documented in this encounter Plan of Treatment Upcoming Encounters Date Type Specialty Care Team Description 10/10/2022 Appointment Pulmonary 10/10/2022 Office Visit Pulmonary Koki Morgan MD [address] [facility] [address] [facility] [id number] (Wo rk) documented as of this encounter Visit Diagnoses Diagnosis Mild persistent asthma, unspecified whet her complicated (HRC) - Primary Hiatal hernia Diaphragmatic hernia without mention of obstruction or gangrene Bronchitis, mucopurulent recurrent (HRC) Mucopurulent chronic bronchitis documented in this encounter Care Teams Medical Records Analyst Relationship Specialty Start Date End Date Tyrese Arreaga MD PCP - General 02/11/11 03/01/19 [place] [address] documented as of this encounter
--- OUTSIDE RECORDS SUMMARY | 2022-09-21 10:00 | XMS_ITS | Encounter Summary ---
:1960 Author Organization [facility] Address [address] [address] Care Team Providers Name Role Phone Walker Purcell MD Primary Care Provider Encounter Details Date Type Department Care Team Description 06/10/2020 Orders Only Initial Department Provider, [facility], [address] [place], [place] [address] Interface provider [phone] [place] [id number] Social History Tobacco Use Types Packs/Day Years [...] 10/10/2022 Office Visit Pulmonary Koki Morgan MD [address]34 [facility] [address] [facility] N [id number] (Wo rk) documented as of this encounter Procedures Procedure Name Priority Date/Time Associated Diagnosis Comme nts PULMONARY TEST DC 06/10/2020 Results fo r this procedure are in the resu lts section. documented in this encounter Results PULMONARY TEST SC (06/10/2020) Narrative This result has an attachment that is no t available. Interface Provider DUMMY/OTHER/AR documented in this encounter Visit Diagnoses Not on filedocumented in this encounter Care Teams Crook Operator Relationship Specialty Start Date End Date Walker Purcell MD PCP - General Family Practice 4/22/19 [address] [place] [address] documented as of this encounter
--- OUTSIDE RECORDS SUMMARY | 2022-09-21 10:00 | XMS_ITS | Encounter Summary ---
:1960 Author Organization [employer] Address [address] [place] [address] Care Team Providers Name Role Phone Walker Purcell MD Primary Care Provider Reason for Visit Reason Comments Follow-up Encounter Details Date Type Department Care Team Description 08/02/2021 Office Visit Specialty Center Brianne Morgan persistent asthma without complication (Primary Dx); 3931 Pulmonary AMD Gastroesophageal reflux disease, unspeci fied whether esophagitis present; Medicine [address] Post-nasal drainage; [address] Allergic rhinitis due to other allergic trigger, unspecified seasonality [facility], [address] [place] [id number] Social History Tobacco Use Types Packs/Day Years Used Date Smoking Tobacco: Never Smokeless Tobacco: Never Alcohol Use Standard Drinks/Week Comments Yes 1 (1 standard drink = 0.6 oz pure alcoho l) about 5 per month Sex Assigned at Date Recorded Not on file documented as of this encounter Last Filed Vital Signs Vital Sign Reading Time Taken Comments Blood Pressure - - Pulse 104 08/02/2021 9:41 AM CDT Temperature - - Respiratory Rate - - Oxygen Saturation 99% 08/02/2021 9:41 AM CDT Inhaled Oxygen Concentration - - Weight 89.4 kg (197 lb) 08/02/2021 9:41 AM CDT Height 181 cm (5' 11.25) 08/02/2021 9:41 AM CDT Body Mass Index 27.28 08/02/2021 9:41 AM CDT documented in this encounter Progress Notes Brianne Morgan MD - 08/02/2021 9:45 AM CDT CLINIC PROGRESS NOTE REASON FOR VISIT: Follow up asthma and recurrent lung infections. SUBJECTIVE: This is a 61-year-old male with a history of asthma, recurrent bronchitis, hiatal hernia with GERD, and allergic rhinitis who presents for routine followup. He was last seen by me in the Pulmonary Clinic in December 2020, and his initial consultation was November 2017. In the past, he has been seen at [facility] in 2014, [facility], and [facility] for [facility]. He returns today for routine followup. For his asthma, he was on Breo 100/25 and albuterol as needed. He has been on Breo 200/25 in the past for increased symptoms in spring 2019, but his baseline doseis the 100/25 strength. He ran out of the Breo over a month ago and wanted to see how he felt without it. Since stopping the Breo, he feels he is doing pretty well. He continues to swim regularly. He gets some occasional chest tightness, but has not felt short of breath. He has an occasional cough productive of sticky, clear to cloudy mucus. He continues to take Singulair regularly. His GERD has been relatively well controlled on omeprazole and Pepcid. He had an EGD in [place] and was told he is a candidate for surgery for his hiatal hernia. He is contemplating this. He typically keeps a rescue Zpak at home. He is a lifelong nonsmoker. 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 Hobbies include swimming and singing in a choir. OBJECTIVE: VITAL SIGNS: Pulse (!) 104 Ht 5' 11.25 (1.81 m) Wt 197 lb (89.4 kg) SpO2 99% BMI 27.28 kg/m?? GENERAL: Pleasant male, no acute distress. Able to easily speak in full sentences. HEENT: Moist mucosal membranes. NECK: No lymphadenopathy. LUNGS: Clear to auscultation bilaterally. CARDIAC: Regular rate and rhythm. RESULTS: Pulmonary function tests (today): FVC 125%, FEV1 108%, and ratio 69, consistent with mild obstruction. Exhaled nitric oxide elevated at 35 ppb. Compared to December 2020 his exhaled nitric oxide is higher (worse), and his spirometry is unchanged. IMPRESSION: 1. Recurrent bronchitis: Suspect multifactorial including asthma, acid reflux from his hiatal hernia, and possibly a contributor of prior high doses of inhaled steroids. Immunoglobulin testing normal 2017. Periodically requires a Zpak. 2. Moderate persistent asthma: Symptoms generally well controlled off Breo 100/25, which he stopped > 1 month ago. He required higher dose Breo in the spring due to increased symptoms. His pulmonary function tests today show mild obstruction, but his marker of airway inflammation is higher.This could be from fall allergies vs stopping the Breo inhaler. 3. Intermittent hoarseness: Likely from inhaled corticosteroids, postnasal drainage and acid reflux.Not currently having an issue with this. 4. Allergic rhinitis: On Singulair. 5. History of alcohol abuse: No alcohol since August 10, 2020. 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 7. Prior normal high-resolution CT chest February 2018 except for some very tiny scattered pulmonary nodules which were stable compared to 2017. 8. Normal immunoglobulin testing and white blood cell count differential 2018. 9. COVID vaccinated (Moderna) RECOMMENDATIONS: 1. If he has worsening of his postnasal drainage, he could try nasal saline irrigation and Flonase. 2. Restart Breo 100/25 one puff daily, if his symptoms worsen. 3. Discussed the importance of avoiding carbonated beverages (and other drinks/foods to help minimize his acid reflux. 4. Already has an Aerobika at home to use b.i.d. for airway clearance when necessary. 5. Continue regular physical activity. 6. No indication for supplemental oxygen. 7. Continue albuterol inhaler as needed. 8. Given rescue prescriptions for a Z-Gerardo to use PRN. 9. Continue Singulair daily. 10. Keep acid [...] Office Visit Pulmonary Koki Morgan MD [address] [facility] [address] (Wo rk) Scheduled Orders Name Type Priority Associated Diagnoses Order S chedule Spirometry PFT Routine Moderate persistent asthma 1 Occurrences starting without complication 021 until 08/07/2022 Nitrous Ox Testing PFT Routine Moderate persistent as thma 1 Occurrences starting without complication 021 until 08/07/2022 documented as of this encounter Visit Diagnoses Diagnosis Moderate persistent asthma without compl ication (HRC) - Primary Unspecified asthma Gastroesophageal reflux disease, unspeci fied whether esophagitis present Post-nasal drainage Unspecified sinusitis (chronic) Allergic rhinitis due to other allergic trigger, unspecified seasonality documented in this encounter Care Teams Tower Cleaner Relationship Specialty Start Date End Date Walker Purcell MD PCP - General Family Practice 03/02/191999 [place] [address] documented as of this encounter
--- OUTSIDE RECORDS SUMMARY | 2022-09-21 10:00 | XMS_ITS | Encounter Summary ---
:1960 Author Organization [employer] Address [address], [place] [address] Care Team Providers Name Role Phone Walker Purcell MD Primary Care Provider Reason for Visit Reason Comments Refill Encounter Details Date Type Department Care Team Description 03/16/2019 Refill [facility] Brianne Mrogan MD Refill [address] [place] [address] [place], [place] [address] (Wo rk) Social History Tobacco Use Types Packs/Day Years Used Date Smoking Tobacco: Never Smokeless Tobacco: Never Alcohol Use Standard Drinks/Week Comments Yes 0 (1 standard drink = 0.6 oz pure alcoho l) Rare Sex Assigned at Date Recorded Not on file documented as of this encounter Nursing Notes Palak Funk RN - 03/16/2019 3:36 PM CDT Refilled Advair per protocol. Last appt 03/02/19, advised to follow up in 6 months. Last refill 01/19/19. documented in this encounter Plan of Treatment Upcoming Encounters Date Type Specialty Care Team Description 10/10/2022 Appointment Pulmonary 10/10/2022 Office Visit Pulmonary Koki Morgan MD [address] [facility] [address] [facility] [address] (Wo rk) documented as of this encounter Visit Diagnoses Diagnosis Moderate persistent asthma without compl ication (HRC) Unspecified asthma documented in this encounter Care Teams Service Order Clerk Relationship Specialty Start Date End Date Walker Purcell MD PCP - General Family Practice 03/02/191999 [place] [address] documented as of this encounter
--- OUTSIDE RECORDS SUMMARY | 2022-09-21 10:00 | XMS_ITS | Encounter Summary ---
:1960 Author Organization [facility] Address [address], [place] [address] Care Team Providers Name Role Phone Walker Purcell MD Primary Care Provider Encounter Details Date Type Department Care Team Description 12/10/2020 Notes/Orders [facility] [address] Walker Purcell MD Preop examination [address] [place] [address] [place], [place] [phone] Social History Tobacco Use Types Packs/Day Years [...] Morgan MD [address] [facility] [address] [facility] [id number] (Wo rk) documented as of this encounter Results Asymptomatic - 2019 Novel Coronavirus (COVID-19) (12/11/2020 7:35 AM ELECTRIC MOTOR REPAIRING SUPERVISOR) [facility] Method Time Signature COVID-19 Not Not 12/11/2020 [facility]ed Detected 7:19 PM [facility] ELECTRIC MOTOR REPAIRING SUPERVISOR Specimen Anatomical Collection Method Collection Time Receive d Time (Source) Location / / Volume Laterality Swab (Source Non-blood 12/11/2020 7:35 AM 9:24 Required) Collection / ELECTRIC MOTOR REPAIRING SUPERVISOR AM ELECTRIC MOTOR REPAIRING SUPERVISOR Unknown Narrative [facility] - 12/11/2020 7:19 PM ELECTRIC MOTOR REPAIRING SUPERVISOR Test performed by Manufacturing Baker Mediated Amplification. TMA has been shown to be equivalent to commercial real-time PCR t ests. This test has been authorized by the FDA under an Emergency Use Authorization (EUA) for use by authorized laboratories. Walker Purcell MD LAB_1 Performing Organization Address City/State/ZIP Code Phon e Number [facility] [address] [address] documented in this encounter Visit Diagnoses Diagnosis Preop examination Preoperative examination, unspecified documented in this encounter Care Teams Director Database Relationship Specialty Start Date End Date Walker Purcell MD PCP - General Family Practice 03/02/191999 [place] [address] documented as of this encounter
--- OUTSIDE RECORDS SUMMARY | 2022-09-21 10:00 | XMS_ITS | Encounter Summary ---
:1960 Author Organization [employer] Address [address], [place] [address] Care Team Providers Name Role Phone Walker Purcell MD Primary Care Provider Reason for Visit Reason Comments Refill Encounter Details Date Type Department Care Team Description 05/26/2021 Refill Specialty Center 3931 Lakhwinder Morgan MD Refill Pulmonary Medicine [address] [facility] [address] [place] [address] [place], [place] [address] [phone] Social History Tobacco Use Types Packs/Day Years Used Date Smoking Tobacco: Never Smokeless Tobacco: Never Alcohol Use Standard Drinks/Week Comments Yes 1 (1 standard drink = 0.6 oz pure alcoho l) about 5 per month Sex Assigned at Date Recorded Not on file documented as of this encounter Nursing Notes Ruthann Parrish RN - 05/29/2021 12:[address] Morgan, please sign pended Rx if appropriate. Thank you! documented in this encounter Plan of Treatment Upcoming Encounters Date Type Specialty Care Team Description 10/10/2022 Appointment Pulmonary 10/10/2022 Office Visit Pulmonary Koki Morgan MD [address] [facility] [address] [facility] [id number] (Wo rk) documented as of this encounter Visit Diagnoses Diagnosis Moderate persistent asthma without compl ication (HRC) Unspecified asthma documented in this encounter Care Teams Medicaid Analyst Relationship Specialty Start Date End Date Walker Purcell MD PCP - General Family Practice 03/02/19[address] [place] [address] documented as of this encounter
--- OUTSIDE RECORDS SUMMARY | 2022-09-21 10:00 | XMS_ITS | Encounter Summary ---
:1960 Author Organization [employer] Address [address], [place] [address] Care Team Providers Name Role Phone Walker Purcell MD Primary Care Provider Encounter Details Date Type Department Care Team Description 08/23/2021 Orders Only Initial Department Provider, Kirstin, [facility] [address] [place], [place] [address] Interface provider [phone] [facility] [place] [id number] Social History Tobacco Use Types Packs/Day Years [...] 10/10/2022 Office Visit Pulmonary Koki Morgan MD [address] [facility] [address] [facility] N [id number] (Wo rk) documented as of this encounter Procedures Procedure Name Priority Date/Time Associated Diagnosis Comme nts PULMONARY TEST UT 08/23/2021 Results fo r this procedure are in the resu lts section. documented in this encounter Results PULMONARY TEST UT (08/23/2021) Narrative This result has an attachment that is no t available. Interface Provider DUMMY/OTHER/AR documented in this encounter Visit Diagnoses Not on filedocumented in this encounter Care Teams Imaging Account Manager Relationship Specialty Start Date End Date Walker Purcell MD PCP - General Family Practice 03/02/191999 [place] [address] documented as of this encounter
--- OUTSIDE RECORDS SUMMARY | 2022-09-21 10:00 | XMS_ITS | Encounter Summary ---
:1960 Author Organization [employer] Address [address], [place] [address] Care Team Providers Name Role Phone Wakler Purcell MD Primary Care Provider Reason for Referral (Routine) - Closed Specialty Diagnoses / Procedures Referred By Contact Refer red To Contact Procedures Brianne Morgan MD Pulmonary Function Test - [address] [facility] [address] Complete [place], [place] [address] Referral ID Status Reason Start Date Expiration Date Visits Requ ested Visits Authorized [id number] Closed 02/27/2019 05/28/2020 1 1 Encounter Details Date Type Department Care Team Description 03/02/2019 Hospital Encounter Specialty Center 3931 Mild persistent asthma, Pulmonary Lab unspecified whether [address] [facility] complicated [place], [place] [id number] Social History Tobacco Use Types Packs/Day Years [...] by mouth 0 09/12 G tablet daily. ADVAIR HFA 115-21 INHALE TWO PUFFS BY 1 Inhaler 0 9 03/16/2019 MCG/ACT MOUTH TWICE A DAY inhalerIndications: *RINSE MOUTH/GARGLE Moderate persistent AFTER USE asthma without complication (HRC) albuterol 2.5 mg/3 mL, Inhale 1 Vial every 4 90 mL 11 06/10/2020 0.083%, (PROVENTIL) hours as needed for nebulizer Wheezing or Shortness solutionIndications: of Breath. Moderate persistent asthma without complication (HRC) ALBUterol sulfate HFA Inhale 2 Puffs. 0 3 06/10/2020 108 (90 BASE) MCG/ACT inhaler ipratropium-albuterol 0 09/13/2017 (DUONEB) 0.5-2.5 MG/3ML nebulizer solution predniSONE (DELTASONE) 4 tabs daily x3 days, 30 Tablet 0 09/24/2019 10 MG tablet 3 tabs daily x3 days, 2 tabs daily x3 days, 1 tab daily x3 days, then stop Probiotic Product (SUPER 0 08/02/2021 PROBIOTIC OR) raNITIdine (ZANTAC) 150 Take 150 mg by mouth 0 11/08/2021 MG tablet two times a day. documented as of this encounter Plan of Treatment Upcoming Encounters Date Type Specialty Care Team Description 10/10/2022 Appointment Pulmonary 10/10/2022 Office Visit Pulmonary Koki Morgan MD [address] [facility] [address] [facility] [id number] (Wo rk) documented as of this encounter Procedures Procedure Name Priority Date/Time Associated Diagnosis Comme nts COMPLETE PULMONARY Routine 03/02/2019 2:36 PM CDT FUNCTION TEST documented in this encounter Results Pulmonary Function Test - Complete (03/02/2019 2:36 PM CDT) Specimen (Source) Anatomical Collection Method Collection Time Re ceived Time Location / / Volume Laterality 03/02/2019 2:36 PM CDT Brianne Morgan MD PN PFT ORDERABLES Performing Organization Address City/State/ZIP Code Phon e Number PN [place] documented in this encounter Visit Diagnoses Diagnosis Mild persistent asthma, unspecified whet her complicated (HRC) documented in this encounter Care Teams Certified Indoor Environmentalist Relationship Specialty Start Date End Date Walker Purcell MD PCP - General Family Practice 03/02/191999 [place] [address] documented as of this encounter
--- OUTSIDE RECORDS SUMMARY | 2022-09-21 10:00 | XMS_ITS | Encounter Summary ---
:1960 Author Organization [employer] Address [address], [place] [address] Care Team Providers Name Role Phone Walker Purcell MD Primary Care Provider Reason for Visit Reason Comments Follow-up Encounter Details Date Type Department Care Team Description 06/10/2020 Office Visit Specialty Center Brianne Morgan persistent asthma without complication (Primary Dx); 3931 Pulmonary AMD Bronchitis, mucopurulent recurrent (HRC) ; Medicine 3931 [facility] Hiatal hernia with GERD [address] [place] [address] [phone] (Wo rk) Social History Tobacco Use Types Packs/Day Years Used Date Smoking Tobacco: Never Smokeless Tobacco: Never Alcohol Use Standard Drinks/Week Comments Yes 1 (1 standard drink = 0.6 oz pure alcoho l) about 5 per month Sex Assigned at Date Recorded Not on file documented as of this encounter Last Filed Vital Signs Vital Sign Reading Time Taken Comments Blood Pressure 134/87 06/10/2020 10:23 AM CDT Pulse 72 06/10/2020 10:23 AM CDT Temperature - - Respiratory Rate - - Oxygen Saturation 98% 06/10/2020 10:23 AM CDT Inhaled Oxygen Concentration - - Weight 89.4 kg (197 lb) 06/10/2020 10:23 AM CDT Height 181 cm (5' 11.25) 06/10/2020 10:23 AM CDT Body Mass Index 27.28 06/10/2020 10:23 AM CDT documented in this encounter Progress Notes Brianne Morgan MD - 06/10/2020 12:00 PM CDT NAME: CECY CHRISTENSEN MR#: [id number] CSN: [id number] AUTHENTICATING CLINICIAN: Brianne Morgan MD CONFIRM #: [id number] LOC: 234 CLINIC PROGRESS NOTE DATE OF VISIT: 06/10/2020 : 1960 . REASON FOR VISIT: Follow up asthma and recurrent lung infections. SUBJECTIVE: This is a 60-year-old male with a history of asthma, recurrent bronchitis, hiatal hernia with GERD, and allergic rhinitis, who presents for routine followup. He was last seen by me in the pulmonary clinic in September 2019, and his initial consultation was November 2017. In the past, he has also been seen at [facility] in 2014, [facility], and [facility] in August 2017, for similar symptoms. He returns today for routine followup. For his asthma, he is on Breo 100-25 one puff inhaled daily. He was increased to the 200-25 dosing this spring when he had increased symptoms, but has now been back on his usual dose. He had a difficult spring in regard to respiratory infections. He had a respiratory infection in November 2019, and thinks he had a sputum culture at [facility] that grew staph. He was coughingup thick mucus plugs every few days and required prednisone and 2 courses of antibiotics for treatment. In January 2020, he had increased shortness of breath and had a chest x-ray that showed hyperinflation. He was treated with antibiotics and prednisone, and felt good for about 6 weeks. Then about 2 weeks ago, he got another upper respiratory tract infection. He was told by a provider in [place] that he had a low growl in his lungs, and he was treated with a Z-Gerardo and Augmentin with some improvement. He does have ongoing issues with a hiatal hernia and acid reflux, which is thought to be a major contributor to his respiratory symptoms. He also has some nasal congestion and postnasal drainage, which is felt to be due to allergies. He is on Singulair. He also takes Zantac. He is an avid swimmer and typically is in a choir, although choir practice is not happening right now due to COVID-19. He is a lifelong nonsmoker. 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 OBJECTIVE: VITAL SIGNS: Blood pressure 134/87, heart rate 72 height 5 feet 11-1/4 inches, weight 197 pounds. Body mass index 27.3. Oxygen saturation 98% on room air at rest. GENERAL: Healthy-appearing male, in no acute distress, able to easily speak in full sentences. HEENT: Moist mucosal membranes. No thrush. NECK: No lymphadenopathy. LUNGS: Clear to auscultation bilaterally without wheezing, rhonchi, or rales. CARDIAC: Regular rate and rhythm. RESULTS: COVID-19 testing negative from 06/08. Pulmonary function tests (today): FVC 134%, FEV1 99%, and ratio 60, consistent with mild obstruction. Exhaled nitric oxide mildly elevated at 34. Compared to September 2019, his FEV1 is decreased, although it is stable to improved compared to February 2019. Prior high-resolution CT chest from February 2019, did not show evidence of bronchiectasis or interstitial lung disease. He had some scattered pulmonary nodules measuring up to 3 mm, which were stable compared to August 2017. Prior immunoglobulin testing and white blood cell count differential were normal in 2018. IMPRESSION: 1. Recurrent bronchitis: Suspect multifactorial including asthma, acid reflux from his hiatal hernia, and possibly a contributor of prior high doses of inhaled steroids. Immunoglobulin testing was normal in 2017. He has suffered recurrent respiratory infections this spring and has required multiple rounds of antibiotics. These were all treated at [facility]. 2. Moderate persistent asthma: Symptoms generally well controlled on Breo 100- 25. He did transientlyincrease up to the higher dose when he was having more issues this spring, but is now back on his usual baseline dose. He has not required prednisone since February 2020. His asthma seems to be significantly affected by his acid reflux. 3. Intermittent hoarseness: Likely related to inhaled corticosteroids, postnasal drainage, and acid reflux. 4. Allergic rhinitis: Possibly a contributor to voice quality changes and morning cough. Currently on Singulair, but has not been on nasal sprays to my knowledge. 5. History of alcohol abuse. 6. 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 7. Prior normal high-resolution CT chest February 2018, except for some tiny scattered pulmonary nodules which were stable compared to 2017. 8. Normal immunoglobulin testing and white blood cell count differential 2018. 9. Negative Coronavirus Disease 2019 testing from 06/08 (done as part of pre- pulmonary function testassessment). RECOMMENDATIONS: 1. In the past, we have discussed nasal saline irrigation. 2. Could consider a trial of Flonase if he has allergic rhinitis and postnasal drainage. 3. Continue Breo 100-25 one puff daily. 4. Counseled on increasing nebulizer treatments when he has a respiratory infection to help expectorate mucus and control symptoms. 5. Already has an Aerobika at home to use twice a day for airway clearance. 6. Continue regular physical activity. 7. No indication for supplemental oxygen. 8. Reviewed that he needs to keep his acid reflux under good control in order to keep his asthma under good control. Return to pulmonary clinic in 6 months with spirometry and exhaled nitric oxide. Total time 40 minutes. Counseling time 30 minutes. EAM:MEDQ C: CONFIRM #: [id number] Brianne Morgan MD - 06/10/2020 10:30 AM CDT Note dictated BP 134/87 (BP Location: Right Arm, BP Cuff Size: Regular) Pulse 72 Ht 5' 11.25 (1.81 m) Wt 197 lb (89.4 kg) SpO2 98% BMI 27.28 kg/m?? documented in this encounter Plan of Treatment Upcoming Encounters Date Type Specialty Care Team Description 10/10/2022 Appointment Pulmonary 10/10/2022 Office Visit Pulmonary Koki Morgan MD [address] [facility] [id number] (Wo rk) Scheduled Orders Name Type Priority Associated Diagnoses Order S chedule Spirometry PFT Routine Moderate persistent asthma E xpected: 12/13/2020, without complication Expires : 06/12/2021 Nitrous Ox Testing PFT Routine Moderate persistent as thma Expected: 12/13/2020, without complication Expires : 06/12/2021 documented as of this encounter Visit Diagnoses Diagnosis Moderate persistent asthma without compl ication - Primary Unspecified asthma Bronchitis, mucopurulent recurrent (HRC) Mucopurulent chronic bronchitis Hiatal hernia with GERD documented in this encounter Care Teams Nursery Worker Relationship Specialty Start Date End Date Walker Purcell MD PCP - General Family Practice 03/02/191999 [place] [address] documented as of this encounter
--- OUTSIDE RECORDS SUMMARY | 2022-09-21 10:00 | XMS_ITS | Encounter Summary ---
:1960 Author Organization [employer] Address [address], [place] [address] Care Team Providers Name Role Phone Walker Purcell MD Primary Care Provider Reason for Visit Reason Comments COVID Screening Encounter Details Date Type Department Care Team Description 06/03/2020 Telephone Specialty Center 3931 Lakhwinder Morgan MD COVID Screening Pulmonary Medicine 3931 [facility] 39[address] [facility] [address] [place] [address] [id number] [phone] Social History Tobacco Use Types Packs/Day Years Used Date Smoking Tobacco: Never Smokeless Tobacco: Never Alcohol Use Standard Drinks/Week Comments Yes 1 (1 standard drink = 0.6 oz pure alcoho l) Rare Sex Assigned at Date Recorded Not on file documented as of this encounter Nursing Notes Silvana Davis RN - 06/03/2020 1:57 PM CDT Left message for patient to either call [phone] or go on-line to [email or web address] to schedule COVID testing on 06/08 two days (48 hours) prior to 06/10 appointment. Advised patient appointment(s) would need to be cancelled and rescheduled if covid testing was not complete. Patient given phone number for office with any questions. Pre-operative testing for COVID-19. As part of preparation for your upcoming surgery/procedure/infusion you are required to have a test for the novel Coronavirus, COVID-19. Patient is a/an Pre-op/pre-procedural/pre-infusion patients that have a scheduled surgery, procedure, induction/ or infusion Please schedule your appointment two days prior to the date of surgery/procedure/infusion in order to get your results before your procedure. Please schedule your appointment online at [email or web address]. It is important to self-quarantine between the test and surgery/procedure/infusion to avoid any additional exposure. Online Scheduling for Drive up Testing: Website: [email or web address]/test Hours: 24 hours/day Testing site hours: Saturday through Saturday 9:00am-6:00pm, Saturday and Saturday 9:00am-1:00pm When you arrive at your scheduled appointment, please let drive up team know that you have been screened. If you have difficulty scheduling your test on-line, you can call us at your clinic. documented in this encounter Plan of Treatment Upcoming Encounters Date Type Specialty Care Team Description 10/10/2022 Appointment Pulmonary 10/10/2022 Office Visit Pulmonary Koki Morgan MD [address] [facility] [address] [facility] [address] (Wo rk) documented as of this encounter Results 2019 Novel Coronavirus (COVID-19) (06/08/2020 8:52 AM CDT) [facility] Method Time Signature COVID-19 Not Not 06/08/2020 [employer] Interpretation Detected Detected 8:52 PM CENTRAL LAB CDT Specimen Anatomical Collection Method Collection Time Receive d Time (Source) Location / / Volume Laterality Swab (Source Non-blood 06/08/2020 8:52 AM 0 Required) Collection / CDT 12:[address] [facility] - 06/08/2020 8:52 PM CDT Testing has been performed by Battery Technician Mediated Amplification. This test has been authorized by the FDA under an Emergency Use Authorization (EUA) for use by authorized laboratories. Brianne Morgan MD LAB_1 Performing Organization Address City/State/ZIP Code Phon e Number [facility] [address] [address] documented in this encounter Visit Diagnoses Diagnosis Moderate persistent asthma without compl ication (HRC) - Primary Unspecified asthma Encounter for screening for other viral diseases documented in this encounter Care Teams Spa Host Relationship Specialty Start Date End Date Walker Purcell MD PCP - General Family Practice 03/02/191999 [place] [address] documented as of this encounter
--- OUTSIDE RECORDS SUMMARY | 2022-09-21 10:00 | XMS_ITS | Encounter Summary ---
:1960 Author Organization [facility] Address [address], [place] [address] Care Team Providers Name Role Phone Walker Purcell MD Primary Care Provider Reason for Visit Reason Comments Appt. Needed Encounter Details Date Type Department Care Team Description 03/24/2020 Telephone Specialty Center 3931 Lakhwinder Morgan MD Appt. Needed Pulmonary Medicine 3931 [facility] [address] [facility] [address] [place] [address] [place] [address] [phone] (Wo rk) Social History Tobacco Use Types [...] Office Visit Pulmonary Koki Morgan MD [address] [facility] [address] [facility] [id number] (Wo rk) documented as of this encounter Visit Diagnoses Not on filedocumented in this encounter Care Teams Instrumental Teacher Relationship Specialty Start Date End Date Walker Purcell MD PCP - General Family Practice 03/02/191999 [place] [address] documented as of this encounter
--- OUTSIDE RECORDS SUMMARY | 2022-09-21 10:00 | XMS_ITS | Encounter Summary ---
:1960 Author Organization [employer] Address [address], [place] [address] Care Team Providers Name Role Phone Tyrese Arreaga MD Primary Care Provider Reason for Visit Reason Comments Refill Encounter Details Date Type Department Care Team Description 01/18/2019 Refill [facility] Brianne Morgan MD Refill [address] [place] [address] [place], [place] [id number] (Wo rk) Social History Tobacco Use Types Packs/Day Years Used Date Smoking Tobacco: Never Smokeless Tobacco: Never Alcohol Use Standard Drinks/Week Comments Yes 0 (1 standard drink = 0.6 oz pure alcoho l) Rare Sex Assigned at Date Recorded Not on file documented as of this encounter Nursing Notes Ruthann Parrish RN - 01/19/2019 10:50 AM CDT Rx refilled per protocol. Pt is due to follow-up on 02/18/19. documented in this encounter Plan of Treatment Upcoming Encounters Date Type Specialty Care Team Description 10/10/2022 Appointment Pulmonary 10/10/2022 Office Visit Pulmonary Koki Morgan MD [address] [facility] [address] [facility] [id number] (Wo rk) documented as of this encounter Visit Diagnoses Diagnosis Moderate persistent asthma without compl ication (HRC) Unspecified asthma documented in this encounter Care Teams Physical Therapy Aides Teacher Relationship Specialty Start Date End Date Tyrese Arreaga MD PCP - General 02/11/11 03/01/19 [place] [address] documented as of this encounter
--- OUTSIDE RECORDS SUMMARY | 2022-09-21 10:01 | XMS_ITS | Encounter Summary ---
:1960 Author Organization [employer] Address [address] [place] [address] Care Team Providers Name Role Phone Tyrese Arreaga MD Primary Care Provider Encounter Details Date Type Department Care Team Description 12/05/2017 Pulmonary Lab Visit PULMONARY LAB AT [facility], unspecified [place] asthma severity, [address] [place] [address] complicated, unspecified whe ther persistent (Love lizz Dx) Social History Tobacco Use Types Packs/Day Years [...] Office Visit Pulmonary Koki Morgan MD [address] [facility] [address] [facility] N [id number] (Wo rk) documented as of this encounter Procedures Procedure Name Priority Date/Time Associated Diagnosis Comme nts COMPLETE PULMONARY Routine 12/05/2017 2:23 PM AG EQUIPMENT FIELD SERVICE TECHNICIAN Asthma, unsp ecified FUNCTION TEST asthma severity, unspecified whether complicated, unspecified whether persistent documented in this encounter Results Pulmonary Function Test - Complete (12/05/2017 2:23 PM AG EQUIPMENT FIELD SERVICE TECHNICIAN) Specimen (Source) Anatomical Collection Method Collection Time Re ceived Time Location / / Volume Laterality 12/05/2017 2:23 PM AG EQUIPMENT FIELD SERVICE TECHNICIAN Brianne Morgan MD PN PFT ORDERABLES Performing Organization Address City/State/ZIP Code Phon e Number PN [place] documented in this encounter Visit Diagnoses Diagnosis Asthma, unspecified asthma severity, uns pecified whether complicated, unspecified whether persistent (HRC) - Primary documented in this encounter Care Teams Electric Sealing Machine Operator Relationship Specialty Start Date End Date Tyrese Arreaga MD PCP - General 02/11/11 03/01/19 [place] [address] documented as of this encounter
--- OUTSIDE RECORDS SUMMARY | 2022-09-21 10:01 | XMS_ITS | Encounter Summary ---
:1960 Author Organization [employer] Address [address] [place] [address] Care Team Providers Name Role Phone Tyrese Arreaga MD Primary Care Provider Reason for Visit Reason Comments Orders Needed Encounter Details Date Type Department Care Team Description 02/10/2018 Telephone Specialty Center 3931 Lakhwinder Morgan MD Orders Needed Pulmonary Medicine [address] [facility] [address] [facility] [address] [place] [address] [place], [place] [phone] (Wo rk) Social History Tobacco Use Types Packs/Day Years Used Date Smoking Tobacco: Never Smokeless Tobacco: Never Alcohol Use Standard Drinks/Week Comments Yes 0 (1 standard drink = 0.6 oz pure alcoho l) Rare Sex Assigned at Date Recorded Not on file documented as of this encounter Nursing Notes Brianne Morgan MD - 02/10/2018 5:38 PM CDT Received call from [place] lab that patient dropped off sputum sample collected today (02/10/18), but orders were . New orders placed for sputum AFB, fungal and routine cultures. documented in this encounter Plan of Treatment Upcoming Encounters Date Type Specialty Care Team Description 10/10/2022 Appointment Pulmonary 10/10/2022 Office Visit Pulmonary Koki Morgan MD [address] [facility] [address] [place] [address] (Wo rk) documented as of this encounter Visit Diagnoses Not on filedocumented in this encounter Care Teams Manager Shipping Relationship Specialty Start Date End Date Tyrese Arreaga MD PCP - General 02/11/11 03/01/19 [place] [address] documented as of this encounter
--- OUTSIDE RECORDS SUMMARY | 2022-09-21 10:01 | XMS_ITS | Encounter Summary ---
:1960 Author Organization [facility] Address [address], [place] [address] Care Team Providers Name Role Phone Unassigned, Provider Primary Care Provider Unavailable Encounter Details Date Type Department Care Team Description 08/18/2001 Orders Only Unassigned, Prov ider [address] [place] [address] Social History Tobacco Use Types Packs/Day Years Used Date Smoking Tobacco: Never Assessed Sex Assigned at Date Recorded Not on file documented as of this encounter Plan of Treatment Upcoming Encounters Date Type Specialty Care Team Description 10/10/2022 Appointment Pulmonary 10/10/2022 Office Visit Pulmonary Koki Morgan MD [address] [facility] [address] [place] [id number] (Wo rk) documented as of this encounter Visit Diagnoses Not on filedocumented in this encounter Care Teams Manager Outpatient Relationship Specialty Start Date End Date Unassigned, Provider PCP - General 11/13/00 02/10/11 [address] [place] [address] documented as of this encounter
--- OUTSIDE RECORDS SUMMARY | 2022-09-21 10:01 | XMS_ITS | Encounter Summary ---
:1960 Author Organization [employer] Address [address] [place] [address] Care Team Providers Name Role Phone Tyrese Arreaga MD Primary Care Provider Reason for Visit Procedure/Equipment (Routine) - Incomplete Specialty Diagnoses / Procedures Referred By Contact Refer red To Contact Diagnoses Moderate persistent asthma without complication (HRC) Bronchitis, mucopurulent recurrent (HRC) Brianne Morgan MD Procedures CT Chest WO IV Cont Hi-Res [address] [facility] [address] [place], [place] [address] Referral ID Status Reason Start Date Expiration Date Visits V isits Requested Authorized [id number] Incomplete 12/05/2017 03/06/2019 1 1 Encounter Details Date Type Department Care Team Description 02/13/[address] Scan Brianne Morgan, Moderate persistent asthma w ithout complication; [id number] [facility] Bronchitis, mucopurulent recurrent (HRC) [place] [address] [address] [facility] [phone] [address] [place], [place] [address] (Wo rk) Social History Tobacco Use Types [...] 10/10/2022 Office Visit Pulmonary Koki Morgan MD [address] [place] [address] (Wo rk) documented as of this encounter Procedures Procedure Name Priority Date/Time Associated Diagnosis Comme nts CT CHEST WO IV CONT Routine 02/13/2018 9:52 AM Moderate persis tent Results for this HI-RES CDT asthma without procedure are in complication the results Bronchitis, section. mucopurulent recurrent (HRC) documented in this encounter Results CT Chest WO IV Cont Hi-Res (02/13/2018 9:52 AM CDT) Anatomical Region Laterality Modality Chest, Lung Computed Tomography Specimen (Source) Anatomical Collection Method Collection Time Re ceived Time Location / / Volume Laterality 02/13/2018 9:41 AM CDT Impressions 02/13/2018 10:36 AM CDT IMPRESSION: ?? 1. No bronchiectasis. No honeycombing, s ubpleural reticular opacities or groundglass opacities to indicate interstitial lung disease. 2. Mild air trapping as above, question small airway disease. 3. Scattered pulmonary nodules measure u p to 0.3 cm, stable compared to 08/13/2017. PN Consensus Recommendation for multiple solid nodules less than 6 mm (excludes patients younger than 35 years, immunocompromised patients and patients with cancer): Low risk patients: No routine follow-up. High risk patients (older age, smoking h istory, emphysema, fibrosis): Optional lung nodule CT at 12 months. Narrative 02/13/2018 10:36 AM CDT COMPARISON: ??Chest CT dated 08/23/2017. TECHNIQUE: ??High-resolution images of t he chest with thin section inspiration, expiration, and prone images without contrast. FINDINGS: Stable 0.3 cm right middle lob e pulmonary nodule (series 4 image 90). Stable 0.3 cm nodule in the anterior left upper lobe (series 4 image 48). Smaller pulmonary nodules are also stable. No ne w pulmonary nodules. No focal airspace c onsolidation. No bronchiectasis. No subpleural reticular opacities or honeycombing. No groundglass opacities. Mild areas of air trapping in the superior segments of the lower lobes and upper lobes on th e expiration views. No pneumothorax. No mediastinal or axillary lymph node enlargement. No pericardial or pleural effusion. Partially visualized left renal cyst. Re maining visualized abdominal organs are grossly unremarkable. Minimal degenerative change in the visua lized osseous structures. Procedure Note Joe Jeronimo MD - 02/13/2018Format ting of this note might be different from the original. COMPARISON: Chest CT dated 08/23/2017. TECHNIQUE: High-resolution images of the chest with thin section inspiration, expiration, and prone images without contrast. FINDINGS: Stable 0.3 cm right middle lob e pulmonary nodule (series 4 image 90). Stable 0.3 cm nodule in the anterior left upper lobe (series 4 image 48). Smaller pulmonary nodules are also stable. No new pulmonary nodules. No focal airspace consolidation. No bron chiectasis. No subpleural reticular opacities or honeycombing. No groundglass opacities. Mild areas of air trapping in the superior segments of the lower lobes and upper lobes on the expiration views. No pneumo thorax. No mediastinal or axillary lymph node enlargement. No pericardial or pleural effusion. Partially visualized left renal cyst. Re maining visualized abdominal organs are grossly unremarkable. Minimal degenerative change in the visua lized osseous structures. IMPRESSION IMPRESSION: 1. No bronchiectasis. No honeycombing, s ubpleural reticular opacities or groundglass opacities to indicate interstitial lung disease. 2. Mild air trapping as above, question small airway disease. 3. Scattered pulmonary nodules measure u p to 0.3 cm, stable compared to 08/13/2017. PN Consensus Recommendation for multiple solid nodules less than 6 mm (excludes patients younger than 35 years, immunocompromised patients and patients with cancer): Low risk patients: No routine follow-up. High risk patients (older age, smoking h istory, emphysema, fibrosis): Optional lung nodule CT at 12 months. Brianne Morgan MD RAD CT documented in this encounter Visit Diagnoses Diagnosis Moderate persistent asthma without compl ication (HRC) Unspecified asthma Bronchitis, mucopurulent recurrent (HRC) Mucopurulent chronic bronchitis documented in this encounter Care Teams Train Caller Relationship Specialty Start Date End Date Tyrese Arreaga MD PCP - General 02/11/11 03/01/19 [place], [place] [id number] documented as of this encounter
--- OUTSIDE RECORDS SUMMARY | 2022-09-21 10:01 | XMS_ITS | Encounter Summary ---
:1960 Author Organization [employer] Address [address] [address] Care Team Providers Name Role Phone Tyrese Arreaga MD Primary Care Provider Reason for Visit Procedure/Equipment (Routine) - Incomplete Specialty Diagnoses / Procedures Referred By Contact Refer red To Contact Diagnoses Bronchitis, mucopurulent recurrent (HRC) Provider, Foreign Images Procedures Foreign Image(S) CT Chest [facility] [place] [address] Referral ID Status Reason Start Date Expiration Date Visits V isits Requested Authorized [id number] Incomplete 12/10/2017 03/11/2019 1 1 Encounter Details Date Type Department Care Team Description 08/23/2017 Imaging [id number] RADIOLOGY [facility]EN[facility]AL FILM Pro vider, Foreign Images LIBRARY [address] [address] [place] [address] Social History Tobacco Use Types Packs/Day Years Used Date Smoking Tobacco: Never Assessed Sex Assigned at Date Recorded Not on file documented as of this encounter Plan of Treatment Upcoming Encounters Date Type Specialty Care Team Description 10/10/2022 Appointment Pulmonary 10/10/2022 Office Visit Pulmonary Koki Morgan MD [address] [facility] [address] [facility] [id number] (Wo rk) documented as of this encounter Procedures Procedure Name Priority Date/Time Associated Diagnosis Comme nts FOREIGN IMAGE(S) CT Routine 08/23/2017 9:45 AM Re sults for this CHEST CDT procedure are i n the results section. documented in this encounter Results Foreign Image(S) CT Chest (08/23/2017 9:45 AM CDT) Specimen (Source) Anatomical Location Collection Method / Collectio n Time Received Time / Laterality Volume Narrative PN POCT - 12/10/2017 9:45 AM RECEPTIONIST SCHEDULER These outside images have been uploaded into PACS. If the results were provided, they will be located on the Me richie tab in the patient's chart. Foreign Images Provider RAD NON-REPORTABLES Performing Organization Address City/State/ZIP Code Phon e Number POCT PN POCT documented in this encounter Visit Diagnoses Not on filedocumented in this encounter Care Teams Manager Spa Relationship Specialty Start Date End Date Tyrese Arreaga MD PCP - General 02/11/11 03/01/19 [place] [address] documented as of this encounter
--- OUTSIDE RECORDS SUMMARY | 2022-09-21 10:01 | XMS_ITS | Encounter Summary ---
:1960 Author Organization [facility] Address [address], [place] [address] Care Team Providers Name Role Phone Unavailable Primary Care Provider Unavailable Encounter Details Date Type Department Care Team Description 08/01/1998 - Hospital Encounter [place]arsanism [place] [address] 08/02/1998 [id number] [place] [address] [facility] [address] [place] [address] Social History Tobacco Use Types Packs/Day Years Used Date Smoking Tobacco: Never Assessed Sex Assigned at Date Recorded Not on file documented as of this encounter Procedure Notes Kennedy Long MD - 08/01/1998 12:01 AM CDT OR Surgeon signed by [employer] And at 10/18/99 1200 Author: Kennedy Noriega MD Service: (none) Author Type: Physician Filed: 02/28/11 0615 Note Time: 08/01/98 0000 Status: Signed Cfa: Kennedy Noriega MD (Physician) [id number] OPERATIVE REPORT DATE OF PROCEDURE: 08/01/98. Surgeon: Kennedy Long M.D. Resident Surgeon: Shay Coto M.D. PREOPERATIVE DIAGNOSIS: Acute appendicitis. POSTOPERATIVE DIAGNOSIS: Acute suppurative appendicitis. PROCEDURE: Appendectomy. INDICATIONS FOR PROCEDURE: The patient is a 38-year-old white male in good general health. Approximately 24 hours ago he experienced the onset of periumbilical pain that later on localized to the right lower quadrant. He also noted nausea, anorexia, but no vomiting. Physical examination revealed point tenderness localized to the right lower quadrant. His white blood cell count was elevated to 16,000. With a preoperative diagnosis of acute appendicitis, I advised the patient to undergo an appendectomy. I explained to him the nature of the procedure, benefits, as well as potential complications. He understood all issues involved and consented to the operation. DESCRIPTION OF PROCEDURE: With the patient under general anesthesia after administration of IV antibiotics, the abdomen was prepared and draped in the usual, sterile fashion. The operation was started by placing a transverse incision on the right lower quadrant. The incision was carried down through subcutaneous adipose tissue. The anterior rectus sheath laterally on the right side was opened. The right rectus muscle was retracted medially. The parietal peritoneum was then opened, entering the abdominal cavity. The incision was extended laterally for a short distance. The appendix was retrocecal and acutely inflamed. We were able to deliver the cecum and appendix through the incision. The base of the appendix was tied with an 0 chromic tie, a Meliza clamp was placed distally, and the base of the appendix was divided. The mucosa of the appendix was then cauterized. The mesoappendix was then sequentially divided in between clamps and tied with 2-0 silks. At the conclusion of the procedure, hemostasis was complete. The appendix was sent to pathology. The area was thoroughly irrigated with antibiotic saline and the incision was closed in layers. The parietal peritoneum was closed CONTINUATION OF OPERATIVE REPORT PAGE 2 with a running stitch of 0 Vicryl. The external oblique aponeurosis was then closed with a running stitch of 0 Vicryl. Subcutaneous tissues were irrigated and the skin was reapproximated with a running subcuticular stitch of 4-0 Monocryl. Steri-Strips and light dressings were applied. The patient tolerated the procedure quite well. He had no complications. Blood loss was minimal. He left the procedure room in satisfactory condition. NATHALY/[id number] SIGNED: KENNEDY LONG M.D. TRODE CLEANING MACHINE OPERATOR documented in this encounter Miscellaneous Notes Miscellaneous - Kennedy Long MD - 08/02/1998 6:36 PM CDT ICD-9-CM ICD-9-CM Narrative description Code ======== DIAGNOSES Principal: APPENDICITIS NOS 541 Secondary: OBSTRUCTIVE CHRONIC BRONCHITIS W/O ACUTE EXACERB. 491.20 PROCEDURES Provider Date Principal: OTHER APPENDECTOMY 47.09 CPT4 Principal: APPENDECTOMY 96943 documented in this encounter Plan of Treatment Upcoming Encounters Date Type Specialty Care Team Description 10/10/2022 Appointment Pulmonary 10/10/2022 Office Visit Pulmonary Koki Morgan MD [address] [facility] [address] [facility] [id number] (Wo rk) documented as of this encounter Procedures Procedure Name Priority Date/Time Associated Comments Diagnosis CONVERSION DEFAULT Routine 08/01/1998 6:20 AM Res ults for this INTERFACE ORDER CDT procedure ar e in the results section. documented in this encounter Results Conversion Default Interface Order (08/01/1998 6:20 AM CDT) [facility] Method Time Signature Surgical See Detail HP CONVERSION Pathology Comment: Patient: CECY CHRISTENSEN ? SURGICAL PATHOLOGY REPORT Pathology # ??[id number] ?Date Obtained: ?Date Received: DIAGNOSIS: ? Resected appendix with acute diff use suppurative appendicitis. ? Suly Ho M.D. ? (electronic signature) JRF/JRF/[facility] Date of Report: 08/03/98 Pathology # ??[id number] ?Date Obtained: ?Date Received: ORGAN/TISSUE SITE: ? Appendix GROSS DESCRIPTION: ? The specimen consists of the appe ndix which measures 7.2 cm in length and ? up to 1.1 cm in diameter. ??There is a hemorrhagic appearance to the ? serosal surface as well as some h emorrhage in the lumen. ??No fecalith is ? found. ??No perforation is eviden t. ??Manager Of Production sections are taken. [facility] MICROSCOPIC DESCRIPTION: ? Sections of the appendix show sup puration in the lumen with some areas ? that show ulceration of the mucos a and submucosal lymphoid tissue. ??With ? this, there is a marked transmura l acute inflammatory cell infiltrate with ? fibrinopurulent exudate on the se geo surface. ??The appearance is that of ? acute diffuse suppurative appendi citis. Specimen (Source) Anatomical Collection Method Collection Time Re ceived Time Location / / Volume Laterality 08/01/1998 6:20 AM CDT Kennedy Long MD LAB_1 Performing Organization Address City/State/ZIP Code Phon e Number HP CONVERSION documented in this encounter Visit Diagnoses Not on filedocumented in this encounter
--- OUTSIDE RECORDS SUMMARY | 2022-09-21 10:01 | XMS_ITS | Encounter Summary ---
:1960 Author Organization [employer] Address [address] [place] [address] Care Team Providers Name Role Phone Tyrese Arreaga MD Primary Care Provider Reason for Visit Reason Comments BREATHING PROBLEM Encounter Details Date Type Department Care Team Description 02/13/2018 Office Visit [place] [facility] Brianne Morgan Moderate persistent asthma w [facility] complication (Primary Dx); [address] [place] Roxanne Edwards MD Moraxella catarrhalis bronchitis; [place] [address] [address] [facility] Bronchitis, mucopurulent rec urrent (HRC) [phone] [address] [place] [address] (Wo rk) Social History Tobacco Use Types Packs/Day Years Used Date Smoking Tobacco: Never Smokeless Tobacco: Never Alcohol Use Standard Drinks/Week Comments Yes 0 (1 standard drink = 0.6 oz pure alcoho l) Rare Sex Assigned at Date Recorded Not on file documented as of this encounter Last Filed Vital Signs Vital Sign Reading Time Taken Comments Blood Pressure 110/82 02/13/2018 10:56 AM CDT Pulse 70 02/13/2018 10:56 AM CDT Temperature - - Respiratory Rate - - Oxygen Saturation 96% 02/13/2018 10:56 AM CDT Inhaled Oxygen Concentration - - Weight 90.3 kg (199 lb) 02/13/2018 10:56 AM CDT Height - - Body Mass Index 26.25 01/21/2018 3:09 PM CDT documented in this encounter Patient Instructions Patient InstructionsBrianne Morgan MD - 02/13/2018 11:00 AM CDT 1. Take Zpak for bronchitis 2. Your high resolution CT chest today showed some air trapping in the lungs, consistent with asthma, and some tiny (3mm or less) pulmonary nodules, but no other significant findings. 3. Your breathing tests today are stable to mildly improved since November 2017. 4. Continue your current asthma regimen. 5. Continue Aerobika to help keep your airways clear. 6. Continue to refrain from drinking any alcohol. Minimize carbonated beverages. 7. Pulmonary clinic nurse line [phone] documented in this encounter Progress Notes Brianne Morgan MD - 02/13/2018 5:18 PM CDT NAME: CECY CHRISTENSEN MR#: [id number] CSN: [id number] AUTHENTICATING CLINICIAN: Brianne Morgan MD CONFIRM #: [id number] LOC: 234 CLINIC PROGRESS NOTE DATE OF VISIT: 02/13/2018 : 1960 REASON FOR VISIT: Follow up recurrent bronchitis and asthma. SUBJECTIVE: This is a 58-year-old male who presents for routine followup of recurrent bronchitis and asthma. He was last seen by me in initial consultation in the [place] pulmonary clinic on December 05, 2017. Please see my original consult note for full details. In the past he has also been seen at [facility], [facility], and [facility] in August 2017 for similar symptoms. The patient is a challenging historian with tangential thought processes. At his original visit his pulmonary function tests showed a mildly elevated exhaled nitric oxide at 35 parts per billion and mild obstruction, consistent with asthma. His diffusion and total lung capacity were normal. In further evaluation he underwent a high-resolution CT scan of the chest, which was completed today and shows no interstitial lung disease. Mild air trapping was noted and scattered pulmonary nodules measuring up to 3 mm were stable compared to August 2017. He was supposed to have immunoglobulin testing and a CBC with differential performed, as well as an IgE, but has not yet completed this. He dropped off a sputum sample on February 10, which is growing Moraxella catarrhalis and less than 10% filamentous fungus. AFB and fungal stains are negative. Since his last visit he was doing relatively well from a pulmonary standpoint. He was decreased to the medium dose of Advair HFA and noted no worsening of symptoms. We also extensively discussed his alcohol use at his last visit, and he has been refraining from alcohol for the most part. He does note that he has been drinking soda, which can sometimes exacerbate symptoms due to the carbonation. He had an EGD with Dr. Bashir on January 21 and noted some sneezing and stuffy nose as well as green drainage from his nose after that. He then developed a cough productive of milky thomas sputum approximately5 days ago. Again, he did drop off a sputum sample. He otherwise denies fevers or chills. No worsening of respiratory symptoms. He is an avid swimmer and has been swimming regularly lately without limitation. Of note, he also had a swallow evaluation which was normal. He is a lifelong nonsmoker. 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 OBJECTIVE: VITAL SIGNS: Blood pressure 110/82. Heart rate 70. Weight 199 pounds. Body mass index 26. Oxygen saturation 96% on room air at rest. GENERAL: Middle-aged male in no acute distress, able to easily speak in full sentences. HEENT: Moist mucosal membranes without lesions. NECK: No lymphadenopathy. LUNGS: Clear to auscultation bilaterally. CARDIAC: Regular rate and rhythm. NEUROLOGIC: Alert, appropriate with questions. RESULTS: Pulmonary function tests (today): FVC 117%, FEV1 88%, and ratio 60, consistent with mild obstruction. Diffusion normal at 107%. Compared to his last pulmonary function tests from November 2017, his spirometry and diffusion are relatively stable. High-resolution CT chest, images reviewed by me with the patient: No evidence of interstitial lung disease. Mild air trapping noted, scattered pulmonary nodules measuring up to 3 mm. IMPRESSION: 1. Recurrent bronchitis: I suspect that this is multifactorial including underlying asthma, possibleacid reflux given his hiatal hernia, alcohol use, and high-dose inhaled corticosteroids. No evidenceof aspiration on a recent swallowing evaluation. In the past he has grown pseudomonas and acinetobacter. Current cultures growing Moraxella catarrhalis. He had a bronchoscopy in 2014 at [facility]. Upuntil his recent illness, he was feeling improved. 2. Moderate persistent asthma: Pulmonary function tests showed mild obstruction, which are improved compared to outside pulmonary function tests at [facility] from August 2017. His pattern on his PFTs is very consistent with asthma given his bronchodilator response, normal diffusion, and elevatedresidual volume. He also has an elevated exhaled nitric oxide at 43 parts per billion. Currently on medium-dose Advair HFA, which seems to be controlling his asthma. 3. History of alcohol abuse: Cut back in May 2007. Has had minimal alcohol since his last visit in November. 4. Avid chili maker, mainly swimming. 5. Normal high-resolution CT chest except for minimal tiny pulmonary nodules measuring up to 3 mm and air trapping. No evidence of interstitial lung disease. 6. History of mildly decreased IgG at [facility] in 2014: Repeat immunoglobulin testing has been ordered, but not yet completed. RECOMMENDATIONS: 1. Continue Advair HFA medium dose (115-21) 2 puffs inhaled b.i.d. 2. Continue albuterol nebulizer as needed. 3. Given Z-Gerardo for Moraxella catarrhalis bronchitis. 4. Continue Aerobika for airway clearance. 5. Reviewed high-resolution CT chest and sputum culture results. 6. Will follow up AFB and fungal cultures. 7. The patient should have a CBC with differential, IgE, IgA, IgM, and IgG with subclasses done. 8. He was given an additional sputum cup if he has more purulent sputum production. 9. Multiple questions answered. Extended counseling. Return to pulmonary clinic in 6 months with spirometry and DLCO, or sooner if needed. Total Time: 40 minutes. Counseling Time: 25 minutes. EAM:SANDRA C: CONFIRM #: [id number] Brianne Morgan MD - 02/13/2018 11:00 AM CDT Note dictated BP 110/82 (BP Location: Left Arm, BP Cuff Size: Adult Large) Pulse 70 Wt 199 lb (90.3 kg) VxM709% BMI 26.25 kg/m2 documented in this encounter Plan of Treatment Upcoming Encounters Date Type Specialty Care Team Description 10/10/2022 Appointment Pulmonary 10/10/2022 Office Visit Pulmonary Koki Morgan MD [address] [place] [address] [place] [address] (Wo rk) Scheduled Orders Name Type Priority Associated Diagnoses Order S chedule Spirometry PFT Routine Moderate persistent asthma 1 Occurrences starting without complication 018 until 02/13/2019 Nitrous Ox Testing PFT Routine Moderate persistent as thma 1 Occurrences starting without complication 018 until 02/13/2019 documented as of this encounter Visit Diagnoses Diagnosis Moderate persistent asthma without compl ication (HRC) - Primary Unspecified asthma Moraxella catarrhalis bronchitis Bronchitis, not specified as acute or ch ronic Bronchitis, mucopurulent recurrent (HRC) Mucopurulent chronic bronchitis documented in this encounter Care Teams Pile Driving Technician Relationship Specialty Start Date End Date Tyrese Arreaga MD PCP - General 02/11/11 03/01/19 [place] [address] documented as of this encounter
--- OUTSIDE RECORDS SUMMARY | 2022-09-21 10:01 | XMS_ITS | Encounter Summary ---
:1960 Author Organization [employer] Address [address], [place] [address] Care Team Providers Name Role Phone Tyrsee Arreaga MD Primary Care Provider Encounter Details Date Type Department Care Team Description 11/22/2017 Notes/Orders [facility] [place] [address] [place] [address] Social History Tobacco Use Types Packs/Day Years [...] Koki Morgan MD [address] [facility] [address] [facility] [address] (Wo rk) documented as of this encounter Visit Diagnoses Not on filedocumented in this encounter Care Teams Rn Community Health Relationship Specialty Start Date End Date Tyrese Arreaga MD PCP - General 02/11/11 03/01/19 [place], [place] [id number] documented as of this encounter
--- OUTSIDE RECORDS SUMMARY | 2022-09-21 10:01 | XMS_ITS | Encounter Summary ---
:1960 Author Organization [facility] Address [address] [address] Care Team Providers Name Role Phone Tyrese Arreaga MD Primary Care Provider Encounter Details Date Type Department Care Team Description 02/13/2018 Pulmonary Lab Visit PULMONARY LAB AT [facility], unspecified PRINGLE asthma severity, [address] [place] [address] complicated, unspecified whe ther persistent (Love lizz [...] Office Visit Pulmonary Koki Morgan MD [address] [facility] [address] [facility] [address] [id number] (Wo rk) documented as of this encounter Procedures Procedure Name Priority Date/Time Associated Diagnosis Comme nts COMPLETE PULMONARY Routine 02/13/2018 10:15 AM Asthma, unspeci fied FUNCTION TEST CDT asthma severity, unspecified whether complicated, unspecified whether persistent documented in this encounter Results Pulmonary Function Test - Complete (02/13/2018 10:15 AM CDT) Specimen (Source) Anatomical Collection Method Collection Time Re ceived Time Location / / Volume Laterality 02/13/2018 10:15 AM CDT Brianne Morgan MD PN PFT ORDERABLES Performing Organization Address City/State/ZIP Code Phon e Number PN MARIO documented in this encounter Visit Diagnoses Diagnosis Asthma, unspecified asthma severity, uns pecified whether complicated, unspecified whether persistent ([facility]) - Primary documented in this encounter Care Teams Pharmacy Stock Clerk Relationship Specialty Start Date End Date Tyrese Arreaga MD PCP - General 02/11/11 03/01/19 [place] [address] documented as of this encounter
--- OUTSIDE RECORDS SUMMARY | 2022-09-21 10:01 | XMS_ITS | Encounter Summary ---
:1960 Author [facility] Address [address] [place] [address] Care Team Providers Name Role Phone Tyrese Arreaga MD Primary Care Provider Reason for Referral (Routine) - Closed Specialty Diagnoses / Procedures Referred By Contact Refer red To Contact Diagnoses Gastroesophageal reflux disease, esophagitis presence not specified Trish Rueda, MULTIMEDIA EDUCATIONAL SPECIALIST, Procedures Manometry Esophageal WRAPPER DIPPER [address] [place] [address] Referral ID Status Reason Start Date Expiration Date Visits Requ ested Visits Authorized [id number] Closed 12/16/2017 03/17/2019 1 1 OLITHOGRAPHER Reason for Visit Reason Comments Follow-up GERD Encounter Details Date Type Department Care Team Description 12/16/2017 Office Visit Trish Locke, Gastroeso phageal reflux Gastroenterology MULTIMEDIA EDUCATIONAL SPECIALIST, DELBERT disease, esophagitis [address] [address] presence no t [address] (Primary Dx) [facility] [address] [place] [id number] Social History Tobacco Use Types Packs/Day Years Used Date Smoking Tobacco: Never Smokeless Tobacco: Never Alcohol Use Standard Drinks/Week Comments Yes 0 (1 standard drink = 0.6 oz pure alcoho l) Rare Sex Assigned at Date Recorded Not on file documented as of this encounter Last Filed Vital Signs Vital Sign Reading Time Taken Comments Blood Pressure 123/88 12/16/2017 8:37 AM PHOTOLITHOGRAPHER Pulse 73 12/16/2017 8:37 AM PHOTOLITHOGRAPHER Temperature - - Respiratory Rate 17 12/16/2017 8:37 AM PHOTOLITHOGRAPHER Oxygen Saturation - - Inhaled Oxygen Concentration - - Weight 90.7 kg (200 lb) 12/16/2017 8:37 AM PHOTOLITHOGRAPHER Height 186.7 cm (6' 1.5) 12/16/2017 8:37 AM PHOTOLITHOGRAPHER Body Mass Index 26.03 12/16/2017 8:37 AM PHOTOLITHOGRAPHER documented in this encounter Patient Instructions Patient InstructionsTrish Rueda APRN, CNP - 12/16/2017 8:30 AM PHOTOLITHOGRAPHER Today we discussed the results of the video swallow which was normal, but it was suggested you may have some esophageal dysmotility. You state your symptoms have improved since taking the Nexium correctly. It is suggested you continue the Nexium 40 mg daily. An esophageal manometry has been ordered for you. You will follow up with Dr. Bashir in clinic. Plan: 1. Continue working on the diet and lifestyles changes regarding reflux. 2. Continue the Nexium 40 mg daily. You may take Zantac as needed. 3. Schedule the esophageal manometry. 4. Follow up with Dr. Bashir in clinic after the manometry has been completed. OLITHOGRAPHER documented in this encounter Progress Notes Trish Rueda APRN, CNP - 12/16/2017 8:30 AM CST GI Clinic Follow Up Timur Christensen MR# [id number] [facility]# [id number] Date of Visit: 12/16/17 Reason for visit: GERD HPI: Mr. Timur Christensen, is a pleasant 57 year old, seen in clinic today for a follow up regarding GERD. He was last seen in the clinic in 11/22/17. He has had on-going respiratory issues for a long time. Please see previous note for complete history regarding lung infection history, which may be related to GERD. Respiratory issues seemed to get worse in mid-2016. He has been on antibiotic, and prednisone consistently since May,. When he takes antibiotics, he feels better for about a week/week and a half, and the symptoms return. Symptoms included chronic cough - he would wake up coughing, a hoarse voice, and throat clearing when he first gets up in the morning. He stated if he drank alcohol symptomscould be worse. Treatment for GERD includes Nexium 20 mg daily and Zantac. Nexium was being taken incorrectly. Administration was reviewed. Education was given on diet and lifestyle changes. Nexium wasincreased to 40 mg daily, with Zantac as needed. He was advised to decrease his alcohol intake. A video swallow (12/05/17) was normal. Report stated clinical symptoms may be concerning for esophageal dysphagia. - Last EGD was completed at [facility] (2014) noted a small hiatal hernia, multiple plaques in the middle third of the esophagus, stomach had a few cystic fundic gland polyps, but was otherwise normal. Duodenum was normal. Pathology not seen in media. Mr. Christensen is in clinic today for a follow up post video swallow. Results were reviewed, and questions answered. He states he is feeling better since he is taking the Nexium as directed. He stated he has also had changes in his pulmonary medications, which has also helped. He as a good appetite, and his weight has been stable. His is working on the diet changes, and his decreased his caffeine intake.He notes chocolate makes his chest feel tight, and has reduced his intake. He has not had any difficulty swallowing, or episodes of food sticking. Has not had a repeat of the sensation of liquid gurgling in his esophagus, as he did prior, after drinking alcohol with dinner. No change in bowel habits. O: PMH: Past Medical History: Diagnosis Date ??? Gastroesophageal reflux disease ??? Obstructive chronic bronchitis (without mention of acute exacerbation) 08/04/1998 Import from [employer] PS: History reviewed. No pertinent surgical history. Outpatient Meds: Outpatient Medications Prior to Visit Medication Sig Note Dispense Refill ??? albuterol 2.5 mg/3 mL, 0.083%, (PROVENTIL) nebulizer solution Inhale 1 Vial every 4 hours as needed for Wheezing or Shortness of Breath. 90 mL 11 ??? ALBUterol sulfate HFA 108 (90 BASE) MCG/ACT inhaler Inhale 2 Puffs. 11/22/2017: Received from: [facility] Received Sig: Inhale 2 Puffs by mouth 4 times daily ifneeded. ??? esomeprazole (NEXIUM) 20 MG capsule Take 40 mg by mouth. 11/22/2017: Received from: [facility] Received Sig: Take 1 capsule by mouth once daily before a meal. ??? fluticasone-salmeterol (ADVAIR HFA) 115-21 mcg/actuation inhaler Inhale 2 Puffs two times a day.Rinse mouth/gargle after use. 1 Inhaler 11 ??? ipratropium-albuterol (DUONEB) 0.5-2.5 MG/3ML nebulizer solution 11/22/2017: Received from: External Pharmacy ??? losartan (COZAAR) 25 MG tablet Take 25 mg by mouth. 11/22/2017: Received from: [facility] Received Sig: Take 1 tablet by mouth once daily. ??? Probiotic Product (SUPER PROBIOTIC OR) ??? raNITIdine (ZANTAC) 150 MG tablet Take 150 mg by mouth two times a day. ??? valACYclovir (VALTREX) 1 G tablet Take 1 g by mouth daily. 11/22/2017: Received from: External Pharmacy No facility-administered medications prior to visit. General appearance: alert, cooperative, no distress, appears stated age, Eyes: conjunctivae/corneas clear. Abdomen: soft, non-tender; bowel sounds normal; Skin: Warm, dry and Neurologic: Grossly normal PE: Vitals: 12/16/17 0837 BP: 123/88 Pulse: 73 Resp: 17 Weight: 200 lb (90.7 kg) Labs: No Results Found Imagin12/10/17 Fl Video Swallow Study COMPARISON: None. FINDINGS: The examination was performed in conjunction with speech pathology and was videotaped. Please refer to [facility] for the speech pathology report. Swallowing appeared normal with thin barium, puree, barium-coated cracker and other barium- coated or mixed products. There is no aspiration, penetration or significant retention. Peristalsis and motility are normal. IMPRESSION: Video swallow within normal limits. ASSESSMENT 57 year old male referred to the GI Clinic by Dr. Purcell Garden, for GERD. Whether the on-goingrespiratory problem is true respiratory or associated with GERD is unclear. Per Timur's description, he does have episodes of night reflux, which can be worse if he has alcohol the night before; However, he has also had the sensation after having alcohol with dinner, prior to lying down. Video swallow (12/10/17) was normal. Has notice an improvement in symptoms (chronic cough - wakes up coughing, a hoarse voice, and throat clearing when he first gets up in the morning) since taking the Nexium correctly. Has also had med changes with Pulmonary, which has helped. GERD 1. Discussed esophageal manometry to rule out dysphagia and assess function of LES. 2. Discussed impedance to assess to for bile reflux. 3. He is to continue taking the Nexium 40 mg daily and Zantac as needed. 4. If hiatal hernia is a factor, may need to discuss antireflux surgery. 4. He will follow up in the GI Clinic with Dr. Bashir, after the esophageal manometry. PLAN: 1. Continue working on the diet and lifestyles changes regarding reflux. 2. Continue the Nexium 40 mg daily. You may take Zantac as needed. 3. Schedule the esophageal manometry. 4. Follow up with Dr. Bashir in clinic after the manometry has been completed. Treatment plan and follow up discussed with the patient and documented in the AVS. Total time spent with patient was 15 minutes, of which 10 minutes were spent consulting patient on condition, treatment, and plan of care. OLITHOGRAPHER documented in this encounter Plan of Treatment Upcoming Encounters Date Type Specialty Care Team Description 10/10/2022 Appointment Pulmonary 10/10/2022 Office Visit Pulmonary Koki Morgan MD [address] [facility] [address] [facility] [address] (Wo rk) documented as of this encounter Results Manometry Esophageal (01/24/2018 4:13 PM CDT) Narrative PN PROVATION - 01/24/2018 4:13 PM CDT Daren Bashir MD ? 01/24/2018 ??4:13 PM Name: Timur Christensen : 1960 Date of Service: 01/22/2018 Endoscopist: Daren Bashir MD Referring Provider(s): Grace Jha Type of Study: High resolution esophagea l manometry study Indication for the study: Patient is a [age] yo M undergoing evaluation for GERD and respiratory illn esses. He has had respiratory issues since mid-2016. Sympt oms include chronic cough. Worse with EtOH. A swallow study suggested there may be esophageal dysphagia present. Pertinent Gastrointestinal Investigation s: EGD 2014 ([facility]): small hiatal hernia, multiple plaques in middl e 3rd of esophagus. Pathology not available. 11/2017 Swallow study: unremarkable. Pertinent medications: nexium 40mg PO qd aily Procedure information: High resolution e sophageal manometry study was performed using the [employer] system. P atient arrived after overnight fasting. A motility catheter w ith 36 circumferential sensors on 1 cm spacing was inserted tra snasally after application of topical anesthesia to the nasal passage. The catheter was positioned so that at least 2 distal sensors were in the stomach and 2 proximal sensors were located above the upper esophageal sphincter. A 5-minute acclima tion period was provided followed by 10 wet swallows in the supin e position. Findings: Upper Esophageal Sphincter: The upper esophageal sphincter relaxed n ormally in response to all 10 wet swallows in supine position. The resting mean basal pressure of the UES is 105.1 (normal 34- 104 mmHg). The mean residual pressure of the UES was -5.6 mm Hg (normal <12.0). Esophageal Body: For the 10 wet swallows in supine positi on: In the esophageal body 10/10 wet swallows were followed by peristalsis (100%), 0/10 by simultaneous contraction (0%), and 0/ 10 by failed contractions (0%). The distal contractile integral was 2775 .8 mmHg/cm/sec (normal 450 to 8000). The distal latency measured on average 7 .7 (normal > 4.5 s) with 0/10 (0%) considered premature contracti ons. Complete bolus clearance occurred in 0/1 0 (0%) of swallows. Lower Esophageal Sphincter: The mean basal pressure of the lower eso phageal sphincter was 23.1 mmHg (normal for wet swallows is 13 to 43 mmHg) for the 10 wet swallows in the supine position. The lower esophageal sphincter showed ad equate relaxation in response to 10 wet swallows in supine po sition with an IRP of 9.6 mmHg (normal less than 15 mmHg). IMPRESSION: 1. Adequate relaxation of the upper esop hageal sphincter. Slightly hypertensive resting UES that a ppropriately relaxed. 2. The motility of the esophageal body i s normal. There was complete bolus clearance in all swallows . 3. The LES demonstrated adequate resting pressure and relaxation. 4. Based on Magee Classification v3.0, this study is unremarkable. There is no clear etiology of patient's symptoms nor any etiology of dysphagia present. Daren Bashir MD Gastroenterology Pager: Trish Rueda MULTIMEDIA EDUCATIONAL SPECIALIST, WRAPPER DIPPER PN GI PROCEDURE ORDERABLES Performing Organization Address City/State/ZIP Code Phon e Number PN PROVATION documented in this encounter Visit Diagnoses Diagnosis Gastroesophageal reflux disease, esophag itis presence not specified - Primary Gastroesophageal reflux disease, esophag itis presence not specified documented in this encounter Care Teams Integrative Medicine Physician Relationship Specialty Start Date End Date Tyrese Arreaga MD PCP - General 02/11/11 03/01/19 [place] [address] documented as of this encounter
--- OUTSIDE RECORDS SUMMARY | 2022-09-21 10:01 | XMS_ITS | Encounter Summary ---
:1960 Author Organization [employer] [facility] [employer] Address [address] [place] [address] Care Team Providers Name Role Phone Tyrese Arreaga MD Primary Care Provider Reason for Referral Procedure/Equipment (Routine) - Incomplete Specialty Diagnoses / Procedures Referred By Contact Refer red To Contact Diagnoses Gastroesophageal reflux disease, esophagitis presence not specified Trish Rueda APRN, Procedures [place] Video Swallow Study [address] [place] [address] Referral ID Status Reason Start Date Expiration Date Visits V isits Requested Authorized [id number] Incomplete 11/22/2017 02/21/2019 1 1 ONAL SALES COORDINATOR Therapies (Routine) - Closed Specialty Diagnoses / Procedures Referred By Contact Refer red To Contact Diagnoses Gastroesophageal reflux disease, esophagitis presence not specified Trish Rueda APRN, FLOOR LAYER [address] [place] [address] Referral ID Status Reason Start Date Expiration Date Visits Requ ested Visits Authorized [id number] Closed 11/22/2017 01/21/2018 1 1 Scheduling Instructions Your provider has recommended an appoint ment with Monique Roblero [facility]. You may call [phone] to schedule your a ppointment. If you do not schedule an appointment within the next 1 to 3 busin ess days, we will call you to help arrange your appointment. We suggest you call [email or web address] about your coverage and benefits for this [facility] nt. ONAL SALES COORDINATOR Reason for Visit Reason Comments CONSULT GERD Encounter Details Date Type Department Care Team Description 11/22/2017 Initial Consult Yobani Trish Rueda Gastroeso phageal reflux Gastroenterology MATHEUS Dent CNP disease, esophagitis [id number] presence no t specified [address] (Primary Dx) Yobani [facility], [address] [place] [address] [phone] Social History Tobacco Use Types Packs/Day Years Used Date Smoking Tobacco: Never Smokeless Tobacco: Never Alcohol Use Standard Drinks/Week Comments Yes 0 (1 standard drink = 0.6 oz pure alcoho l) Rare Sex Assigned at Date Recorded Not on file documented as of this encounter Last Filed Vital Signs Vital Sign Reading Time Taken Comments Blood Pressure 117/92 11/22/2017 12:56 PM REGIONAL SALES COORDINATOR Pulse 75 11/22/2017 12:56 PM REGIONAL SALES COORDINATOR Temperature - - Respiratory Rate 17 11/22/2017 12:56 PM REGIONAL SALES COORDINATOR Oxygen Saturation - - Inhaled Oxygen Concentration - - Weight 90.3 kg (199 lb) 11/22/2017 12:56 PM REGIONAL SALES COORDINATOR Height 186.7 cm (6' 1.5) 11/22/2017 12:56 PM REGIONAL SALES COORDINATOR Body Mass Index 25.9 11/22/2017 12:56 PM REGIONAL SALES COORDINATOR documented in this encounter Patient Instructions Patient InstructionsTrish Rueda APRN, CNP - 11/22/2017 12:50 PM REGIONAL SALES COORDINATOR Today we discussed your symptoms, and your will be scheduled for a video swallow to evaluate your swallow, and possible aspiration. You will follow up in the GI Clinic after the video swallow has been completed. Plan: 1. Schedule Video Swallow. 2. Follow up in the GI Clinic after the procedure has been completed. 3. Continue Nexium daily, as ordered. ONAL SALES COORDINATOR documented in this encounter Progress Notes Trish Rueda APRN, CNP - 11/22/2017 12:50 PM CST GI Clinic Progress Note Name: Timur Christensen [facility]: [id number] : 1960 Date of Visit: 11/22/17 REASON FOR VISIT: GERD HISTORY OF PRESENT ILLNESS: Timur Christensen is a 57 y.o. male referred to the GI Clinic by Dr. Walker Purcell, [place], [place]. Mr. Christensen has had ongoing chronic cough. History includes recurrent aspiration bronchitis/pneumonia, s/p bronchoscopy, which showed colonization with pseudomonas; HTN, GERD, Hiatal hernia; and Tinnitus. Summary of information received: - 05/2017: symptoms started in 05/2017, described as persistent congestion in chest, had a cough 2 weeks prior, described as mild but productive. Assessment noted reactive airway. Questioned COPD vs Asthma. - He was given a 5 day trial of Prednisone. - 06/23/17: Clinic Follow Up. Complaints of cough with green sputum production. Noted had bronchoscopy 2 years ago and is dealing with chronic respiratory inflammation. Was taking inhaled steroids, albuterol nebs, and prednisone. Notes he was seen by [facility], and was noted to have mild asthma and COPD. - Started on Levaquin 750 mg X 10 days. Also given Prednisone 40 mg X7 days if not improved on antibiotic alone. - 07/19/17: Clinic Follow Up. Was having productive cough and chinik green sputum. Tightness in chest and Shortness of breath with exercising. Stated lungs had improved but not back to normal. - Received another dose of Prednisone 60 mg X 3 days, then 40 mg X 3 days. - 07/31/17: Clinic Follow Up. Lungs still tight, but improved. Continued to cough up what was described as mucus plugs. Only occurred with very forceful, repeated expiration. - 08/08/17: Clinic Follow Up. Cough Recheck. Was thought he was having COPD exacerbations. Not sure Actually having recurrent infections that require antibiotics. Was advised to follow up in pulmonary. - Was put on Prednisone taper. Also received Levaquin, if not improving. - 08/27/17: Clinic Follow Up. Complained of cough and cold symptoms for past few days. CBC elevated WBC (15.26 - with slight left shift). Had lung tightness. Thick green mucous plugs with forced expirations. Noted past diagnosis of aspiration bronchitis and aspiration pneumonia. Stated : This happens after he drinks alcohol or pop with carbonation. - Treated with Levaquin for 5 days, per note, he did not take when prescribed 08/08/17. - Was seen by pulmonology - waiting for report. - CT scan was done. Per report: Findings: The lungs appear mildly hyper expanded. No pulmonary infiltrates, pleural effusion, or pulmonary vascular congestion with normal heart size. Impression: Mildly hyper-expanded clear lungs. - Diagnosed with COPD - 09/13/17: Clinic Follow Up. Continued URI symptoms, mild nausea, body aches, fatigue, and green mucous in his sinus. Lymes testing negative (recent hunting expedition). - Given short-term Omnicef and DuoNeb. CBC noted to still be high (14.6). - 10/18/17: Clinic Follow Up. Feeling better . Still has some cough be felt he was closer to his prior activity level. Has ongoing concerns in regards to recurrent bronchitis and recurrent URI. Sx present since May,. Still having greenish brownish discharge. - Sputum culture showed stap aureus. - Given doxycycline X 10 days, and prednisone 20 mg BID. Also given Mucinex. - 11/19/17: Clinic Follow Up. Seen with possible flu like sinus symptoms again. Patient requesting referrals. Noted that when finishes antibiotic regimen he feels better for about a week, then symptoms return. - Has been told he has a hiatal hernia. There is a question about whether or not this hiatal herniacould be playing some role in his recurrent symptoms. If this is the case, he would like it treated. - Flu test negative 11/19/17. - Last EGD (2014 - [facility]) per patient, normal except for small hiatal hernia. Records requested. Per information: Colonoscopy (07/14/15) with Dr. Al. 3 mm polyp removed, repeat in 5 years. Due in 2019. Timur presents to the clinic today to discuss current symptoms and possible treatment options regarding GERD and possible aspiration. He denies fever, chills, diaphoresis, lightheadedness, dizziness, heartburn, dysphagia, odynophagia, chest pain, epigastric pain, nausea, vomiting, abdominal pain, diarrhea, constipation, hematochezia, melena, or any weight changes. Timur states he has had on-going respiratory issues for a long time. It seemed to get worse in mid-2016. He has been on antibiotic, and prednisone consistently since May,. He takes the antibiotics, feels better for about a week/week and a half, and the symptoms return. Timur stated the last episode occurred when he went out to dinner. He had an alcoholic beverage with dinner, Sieper a gurgling inhis esophagus immediately after he finished dinner (Saturday). He went to the gym on Saturday, and whileworking out, started to feel a tightness in his chest. On Saturday, he started coughing up thick green mucous. He went to his primary, and was given Azithromycin. Today (Saturday), he states 99% of the green mucous has resolved. He has been taking Nexium for the past 12 weeks, and prior to that was taking ranitidine. He states he has no symptoms of heartburn or reflux. 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 He does wake up coughing, has a hoarse voice, and throat clearing when he first gets up in the morning. He states if he drinks alcohol it is worse. He has a good appetite, and his weight has been stable. No alarm symptoms. Current medications, allergies, medical problems, family and social histories reviewed and updated as indicated. O: Review of Systems - Negative except as given in the HPI. PMH: Past Medical History: Diagnosis Date ??? Obstructive chronic bronchitis (without mention of acute exacerbation) 08/04/1998 Import from [employer] PSH: No past surgical history on file. Outpatient Meds: No outpatient prescriptions prior to visit. No facility-administered medications prior to visit. No family history on file. Social History Substance Use Topics ??? Smoking status: Not on file ??? Smokeless tobacco: Not on file ??? Alcohol use Not on file PE: There were no vitals filed for this visit. General appearance: alert, cooperative, no distress, appears stated age, Eyes: conjunctivae/corneas clear. Abdomen: soft, non-tender; bowel sounds normal; Skin: Warm, dry and Neurologic: Grossly normal LABS: No Results Found IMAGING No Results Found. ASSESSMENT: 57 year old male referred to the GI Clinic by Jackie Montilla, for GERD. Whether the on-goingrespiratory problem is true respiratory or associated with GERD/Aspiration is unclear. Per Timur's description, he does have episodes of night reflux, which can be worse if he has alcohol the night before; However, he has also had the sensation after having alcohol with dinner, prior to lying down. GERD/Possible Aspiration 1. Believe he may have two issues consecutively. One being night reflux, the other may be aspirationor the alcohol relaxing the lower esophageal sphincter so it does not close properly. 2. Discussed reflux including diet and lifestyle changes, elevating the head of his bed, and continuing the Nexium daily. 3. It was noted Mr. Christensen was taking the PPI incorrectly. Education was given on administration of the PPI. 4. Questions regarding long-term use of a PPI were addressed. He was given a copy of the AGA Clinical Practice Update regarding the risks and benefits of long-term PPI use*. 5. Will order video swallow and speech follow up to address possible aspiration. 6. He was advised to decrease his alcohol intake which seems to be a common denominator in the on-going respiratory infections. PLAN: 1. Schedule Video Swallow. 2. Follow up in the GI Clinic after the procedure has been completed. 3. Continue Nexium daily, as ordered. Arnold Patel., Lina Fiore., Quincy Sesay., Manohar Ross., Wally Y., & AlCyndi Armstrong. (2017). Risk of among users of Proton Pump Inhibitors: a longitudinal observational cohort study of [place] veterans. BMJ open, 7(6), q008557. Treatment plan and follow up discussed with the patient and documented in the AVS. Total time spent with patient was 25 minutes, of which 20 minutes were spent consulting patient on condition, treatment, and plan of care. Please cc note to: Dr. Purcell [address] [place] [address] ONAL SALES COORDINATOR Asmita Landers RN - 11/22/2017 12:50 PM CST Mailed office visit note to Dr. Purcell as requested by Trish Rueda. ONAL SALES COORDINATOR documented in this encounter Plan of Treatment Upcoming Encounters Date Type Specialty Care Team Description 10/10/2022 Appointment Pulmonary 10/10/2022 Office Visit Pulmonary Koki Morgan MD [address] [place] [address] (Wo rk) Scheduled Referrals Name Type Priority Associated Diagnoses Order S chedule Speech Therapy Referral Routine Gastroesophageal reflux di ella, Ordered: 11/22/2017 esophagitis presence not specified documented as of this encounter Results FL Video Swallow Study (12/10/2017 11:07 AM REGIONAL SALES COORDINATOR) Anatomical Region Laterality Modality Neck, Chest Computed Radiography Specimen (Source) Anatomical Collection Method Collection Time Re ceived Time Location / / Volume Laterality 12/10/2017 10:57 AM REGIONAL SALES COORDINATOR Impressions 12/10/2017 11:34 AM REGIONAL SALES COORDINATOR IMPRESSION: ??Video swallow within normal limits. Narrative 12/10/2017 11:34 AM REGIONAL SALES COORDINATOR COMPARISON: ??None. FINDINGS: ??The examination was performe d in conjunction with speech pathology and was videotaped. Please refer to [facility] for the speech pathology report. Swallowing appeared normal with thin barium, pure e, barium-coated cracker and other bariu m-coated or mixed products. ??There is no aspiration, penetration or significant retention. Peristalsis and motility are normal. Procedure Note Kermit Ayoub MD - 12/10/2017Form atting of this note might be different from the original. COMPARISON: None. FINDINGS: The examination was performed in conjunction with speech pathology and was videotaped. Please refer to [facility] for the speech pathology report. Swallowing appeared normal with thin barium, puree, barium-coated cracker and other barium-c oated or mixed products. There is no aspiration, penetration or significant retention. Peristalsis and motility are normal. IMPRESSION IMPRESSION: Video swallow within normal limits. Trish Rueda APRN, FLOOR LAYER RAD [place] documented in this encounter Visit Diagnoses Diagnosis Gastroesophageal reflux disease, esophag itis presence not specified - Primary Gastroesophageal reflux disease, esophag itis presence not specified documented in this encounter Care Teams Rehabilitation Aide/Scheduler Relationship Specialty Start Date End Date Tyrese Arreaga MD PCP - General 02/11/11 03/01/19 [place] [address] documented as of this encounter
--- OUTSIDE RECORDS SUMMARY | 2022-09-21 10:01 | XMS_ITS | Encounter Summary ---
:1960 Author Organization [employer] [facility] Address [address] [place] [address] Care Team Providers Name Role Phone Tyrese Arreaga MD Primary Care Provider Reason for Referral (Routine) - Closed Specialty Diagnoses / Procedures Referred By Contact Refer red To Contact Procedures Brianne Morgan MD Pulmonary Function Test - [address] [facility] [address] [place], [place] [address] Referral ID Status Reason Start Date Expiration Date Visits Requ ested Visits Authorized [id number] Closed 08/19/2018 11/18/2019 1 1 Encounter Details Date Type Department Care Team Description 08/20/2018 Hospital Encounter Specialty [facility] 3931 Asthma, unspecified Pulmonary Lab asthma severity, [address] [facility]. unspecified whether [place], [place] complic ated, [id number] unspecified whether [phone] persistent Social History Tobacco Use Types Packs/Day [...] 3 06/10/2020 108 (90 BASE) MCG/ACT inhaler azithromycin (ZITHROMAX) Take 2 tablets by 6 Tab 0 03/201803/02/2019 250 MG mouth on day 1, then tabletIndications: 1 tablet daily on Moraxella catarrhalis days 2 - 5. bronchitis fluticasone-salmeterol Inhale 2 Puffs two 1 Inhaler 11 12/0501/18/2019 (ADVAIR HFA) 115-21 times a day. Rinse mcg/actuation mouth/gargle after inhalerIndications: use. Moderate persistent asthma without complication ([facility]) ipratropium-albuterol 0 09/13/2017 (DUONEB) 0.5-2.5 MG/3ML nebulizer solution losartan (COZAAR) 25 MG Take 25 mg by mouth. 0 03/02/2019 tablet Probiotic Product (SUPER 0 08/02/2021 PROBIOTIC OR) raNITIdine (ZANTAC) 150 Take 150 mg by mouth 0 11/08/2021 MG tablet two times a day. documented as of this encounter Plan of Treatment Upcoming Encounters Date Type Specialty Care Team Description 10/10/2022 Appointment Pulmonary 10/10/2022 Office Visit Pulmonary Koki Morgan MD [address] [facility] [address] [place] [address] (Wo rk) documented as of this encounter Procedures Procedure Name Priority Date/Time Associated Diagnosis Comme nts COMPLETE PULMONARY Routine 08/20/2018 9:08 AM CDT FUNCTION TEST documented in this encounter Results Pulmonary Function Test - Complete (08/20/2018 9:08 AM CDT) Specimen (Source) Anatomical Collection Method Collection Time Re ceived Time Location / / Volume Laterality 08/20/2018 9:08 AM CDT Brianne Morgan MD PN PFT ORDERABLES Performing Organization Address City/State/ZIP Code Phon e Number PN [place] documented in this encounter Visit Diagnoses Diagnosis Asthma, unspecified asthma severity, uns pecified whether complicated, unspecified whether persistent ([facility]) documented in this encounter Care Teams Steel Sampler Relationship Specialty Start Date End Date Tyrese Arreaga MD PCP - General 02/11/11 03/01/19 [place] [address] documented as of this encounter
--- OUTSIDE RECORDS SUMMARY | 2022-09-21 10:01 | XMS_ITS | Encounter Summary ---
:1960 Author Organization [facility] Address [address] [place] [address] Care Team Providers Name Role Phone Tyrese Arreaga MD Primary Care Provider Encounter Details Date Type Department Care Team Description 03/19/2018 Lab Visit [facility] Bronchitis, mucopurulent rec urrent (HRC); [address] Moderate [place] [address] Social History Tobacco Use Types Packs/Day Years [...] Office Visit Pulmonary Koki Morgan MD [address] [facility] [address] [facility] N [id number] (Wo rk) documented as of this encounter Procedures Procedure Name Priority Date/Time Associated Diagnosis Comme nts LAB IGM Routine 03/19/2018 4:33 PM Bronchitis, Results f or this CDT mucopurulent procedure are i n recurrent (HRC) the results section. IGG SUBCLASSES 1-4 Routine 03/19/2018 4:33 PM Bronchitis, Res ults for this CDT mucopurulent procedure are i n recurrent (HRC) the results section. COMPLETE BLOOD Routine 03/19/2018 4:33 PM Moderate persistent Results for this COUNT-W/DIFF CDT asthma without procedure are in complication the results section. DIFFERENTIAL Routine 03/19/2018 4:33 PM Results f or this CDT procedure are i n the results section. IGG, SERUM Routine 03/19/2018 4:33 PM Bronchitis, Results f or this CDT mucopurulent procedure are i n recurrent (HRC) the results section. IGE TOTAL Routine 03/19/2018 4:33 PM Bronchitis, Results f or this CDT mucopurulent procedure are i n recurrent (HRC) the results section. IGA, SERUM Routine 03/19/2018 4:33 PM Bronchitis, Results f or this CDT mucopurulent procedure are i n recurrent (HRC) the results section. documented in this encounter Results Differential (03/19/2018 4:33 PM CDT) athologist Signature Absolute 3.1 1.8 - 8.0 PN SOFT Neutrophils k/cmm Absolute 2.0 1.1 - 4.0 PN SOFT Lymphocytes k/cmm Absolute 0.6 0.2 - 0.8 PN SOFT Monocytes k/cmm Absolute 0.5 0.0 - 0.5 PN SOFT Eosinophils k/cmm Absolute 0.1 0.0 - 0.2 PN SOFT Basophils k/cmm Immature 0.2 0.0 - 0.5 PN SOFT Granulocytes % Specimen Anatomical Collection Method Collection Time Receive d Time (Source) Location / / Volume Laterality 03/19/2018 4:33 PM 8 4:33 CDT PM CDT Narrative PN SOFT - 03/19/2018 4:37 PM CDT Performed at [facility], [address] [place] [address] CLIA number [id number] Brianne Morgan MD LAB_1 Performing Organization Address City/State/ZIP Code Phon e Number PN SOFT [address], [place] [address] [phone] CBC - Complete Blood Count W/Diff (03/19/2018 4:33 PM CDT) athologist Signature White Blood Cell 6.2 3.8 - 11.0 PN SOFT Count k/cmm Red Blood Cell 5.20 4.20 - PN SOFT Count 5.90 m/cmm Hemoglobin 15.2 13.4 - PN SOFT 17.5 g/dL Hematocrit 44.3 39.0 - PN SOFT 51.0 % Mean Corpuscular 85.2 80.0 - PN SOFT Volume 100.0 fL RDW 13.3 11.0 - PN SOFT 15.0 % Platelet Count 199 140 - 450 PN SOFT k/cmm Specimen Anatomical Collection Method Collection Time Receive d Time (Source) Location / / Volume Laterality 03/19/2018 4:33 PM 8 4:33 CDT PM CDT Narrative PN SOFT - 03/19/2018 4:37 PM CDT Performed at [facility], [address] [place] [address] CLIA number [id number] Brianne Morgan MD LAB_1 Performing Organization Address [facility] Phon e Number PN SOFT [address] [place] [address] IgG (03/19/2018 4:33 PM CDT) athologist Signature Immunoglobulin G 839 540 - PN SOFT 1,822 mg/dL Specimen Anatomical Collection Method Collection Time Receive d Time (Source) Location / / Volume Laterality 03/19/2018 4:33 PM 8 8:56 CDT PM CDT Narrative PN SOFT - 03/19/2018 9:12 PM CDT Performed at [facility], [address] [place] [address] CLIA number [id number] Brianne Morgan MD LAB_1 Performing Organization Address City/[facility] Phon e Number PN SOFT [address] [place] [address] IgG Subclasses 1-4 (03/19/2018 4:33 PM CDT) athologist Signature IgG Subclass 1 367 240 - 1,118 PN SOFT mg/dl IgG Subclass 2 313 124 - 549 PN SOFT mg/dl IgG Subclass 3 40 21 - 134 PN SOFT mg/dl IgG Subclass 4 68 1 - 123 PN SOFT mg/dl Comment: The total IgG (mg/dl) can be derived fro m the sum of the subclasses IgG1, IgG2, IgG3 and IgG4. Ho wever, a more precise measured total IgG is available. Refer to test IGG,SERUM (0518). Performed at [facility], [address] [place] [address] ??[id number] Specimen Anatomical Collection Method Collection Time Receive d Time (Source) Location / / Volume Laterality 03/19/2018 4:33 PM 8 8:57 CDT PM CDT Brianne Morgan MD LAB_1 Performing Organization Address City/[facility] Code Phon e Number PN SOFT [address] [place] [address] IgM (03/19/2018 4:33 PM CDT) athologist Signature Immunoglobulin M 82 22 - 240 PN SOFT mg/dL Specimen Anatomical Collection Method Collection Time Receive d Time (Source) Location / / Volume Laterality 03/19/2018 4:33 PM 8 8:56 CDT PM CDT Narrative PN SOFT - 03/19/2018 9:13 PM CDT Performed at [facility], [address] [place] [address] CLIA number [id number] Brianne Morgan MD LAB_1 Performing Organization Address [facility] Phon e Number PN SOFT [address] [place] [address] IgA, Serum (03/19/2018 4:33 PM CDT) athologist Signature Immunoglobulin A 71 63 - 484 PN SOFT mg/dL Specimen Anatomical Collection Method Collection Time Receive d Time (Source) Location / / Volume Laterality 03/19/2018 4:33 PM 8 8:56 CDT PM CDT Narrative PN SOFT - 03/19/2018 9:13 PM CDT Performed at [facility], [address] [place] [address] CLIA number [id number] Brianne Morgan MD LAB_1 Performing Organization Address [facility] Code Phon e Number PN SOFT [address] [place] [address] IgE (03/19/2018 4:33 PM CDT) athologist Signature Immunoglobulin E 109 <=214 kU/L PN SOFT Comment: REFERENCE INTERVAL: Immunoglobulin E, Se rum Access complete set of age- and/or gende r-specific reference intervals for this test in the [facility] ([employer]). Performed by [email or web address], [address] [place] [address] [email or web address], Tyree Campuzano MD - Lab . Director Specimen Anatomical Collection Method Collection Time Receive d Time (Source) Location / / Volume Laterality 03/19/2018 4:33 PM 8 8:58 CDT PM CDT Narrative PN SOFT - 03/22/2018 3:44 AM CDT Performed at [email or web address] [address] [place] [address] CLIA number [id number] Brianne Morgan MD LAB_1 Performing Organization Address City/State/ZIP Code Phon e Number SOFT [address] [place] [address] [phone] documented in this encounter Visit Diagnoses Diagnosis Bronchitis, mucopurulent recurrent (HRC) Mucopurulent chronic bronchitis Moderate persistent asthma without compl ication (HRC) Unspecified asthma documented in this encounter Care Teams Statistical Secretary Relationship Specialty Start Date End Date Tyrese Arreaga MD PCP - General 02/11/11 03/01/19 [place] [address] documented as of this encounter
--- OUTSIDE RECORDS SUMMARY | 2022-09-21 10:01 | XMS_ITS | Encounter Summary ---
:1960 Author Organization [facility] Address [address], [place] [address] Care Team Providers Name Role Phone Tyrese Arreaga MD Primary Care Provider Reason for Visit Reason Comments APPOINTMENT REQUEST Encounter Details Date Type Department Care Team Description 11/20/2017 Telephone Specialty [facility] [address] Kasandra Ramirez MD APPOINTMENT REQUEST Endoscopy [address] [place] [id number] [phone] Social History Tobacco Use Types Packs/Day Years Used Date Smoking Tobacco: Never Assessed Sex Assigned at Date Recorded Not on file documented as of this encounter Nursing Notes Mason Vargas - 11/20/2017 10:58 AM CST GI dept LVM re: consult referral [facility] LY TECHNICIAN documented in this encounter Plan of Treatment Upcoming Encounters Date Type Specialty Care Team Description 10/10/2022 Appointment Pulmonary 10/10/2022 Office Visit Pulmonary Koki Morgan MD [address] [facility] N [id number] (Wo rk) documented as of this encounter Visit Diagnoses Not on filedocumented in this encounter Care Teams Courtroom Deputy Relationship Specialty Start Date End Date Tyrese Arreaga MD PCP - General 02/11/11 03/01/19 [place] [address] documented as of this encounter
--- OUTSIDE RECORDS SUMMARY | 2022-09-21 10:01 | XMS_ITS | Encounter Summary ---
:1960 Author Organization [facility] Address [address] [place] [address] Care Team Providers Name Role Phone Tyrese Arreaga MD Primary Care Provider Reason for Referral Procedure/Equipment (Routine) - Incomplete Specialty Diagnoses / Procedures Referred By Contact Refer red To Contact Diagnoses Moderate persistent asthma without complication (HRC) Bronchitis, mucopurulent recurrent (HRC) Brianne Morgan MD Procedures CT Chest WO IV Cont Hi-Res [address] [place], [place] [address] Referral ID Status Reason Start Date Expiration Date Visits V isits Requested Authorized [id number] Incomplete 12/05/2017 03/06/2019 1 1 IFIED APPLIANCE SERVICE TECHNICIAN Reason for Visit Reason Comments CONSULT Mild pulmonary obstruction/a sthma/bronchiectasis/recurrent infections Encounter Details Date Type Department Care Team Description 12/05/2017 Initial Consult Brianne Caputo e persistent asthma without complication (Primary Dx); Bennett Edwards MD Bronchitis, mucopurulent recurrent (HRC) ; [address] [address] [place] Allergic rh initis, unspecified chronicity, unspecified seasonality, unspecified trigger; [address] Gastroesophageal reflux disease, esophag itis presence not specified; [place], [place] [address] [phone] Social History Tobacco Use Types Packs/Day Years Used Date Smoking Tobacco: Never Smokeless Tobacco: Never Alcohol Use Standard Drinks/Week Comments Yes 0 (1 standard drink = 0.6 oz pure alcoho l) Rare Sex Assigned at Date Recorded Not on file documented as of this encounter Last Filed Vital Signs Vital Sign Reading Time Taken Comments Blood Pressure 122/84 12/05/2017 3:10 PM CERTIFIED APPLIANCE SERVICE TECHNICIAN Pulse 90 12/05/2017 3:10 PM CERTIFIED APPLIANCE SERVICE TECHNICIAN Temperature - - Respiratory Rate - - Oxygen Saturation 96% 12/05/2017 3:10 PM CERTIFIED APPLIANCE SERVICE TECHNICIAN Inhaled Oxygen Concentration - - Weight 90.3 kg (199 lb) 12/05/2017 3:10 PM CERTIFIED APPLIANCE SERVICE TECHNICIAN Height 181 cm (5' 11.25) 12/05/2017 3:10 PM CERTIFIED APPLIANCE SERVICE TECHNICIAN Body Mass Index 27.56 12/05/2017 3:10 PM CERTIFIED APPLIANCE SERVICE TECHNICIAN documented in this encounter Patient Instructions Patient InstructionsLe, Lauren Perez RN - 12/05/2017 2:45 PM CST 1. Decrease Advair to medium dose. Take 2 puffs twice a day. Remember to rinse and gargle after eachuse. 2. Continue albuterol as needed 3. Use aerobika twice a day (ideally after nebulizer treatment) to help with airway clearance. 4. In the next couple weeks, have lab work and a high resolution CT chest performed. Will call with results. 5. Drop off a sputum sample at your nearest [facility] lab 6. Pulmonary clinic nurse line [phone] Sputum Collection Please follow these instructions carefully in order to make sure the test results of your culture are accurate. -Your sputum sample must be collected in a sterile specimen cup. This can be obtained at your doctor???s office or any [facility] lab. 1. Collect your specimen in the saw man if possible 2. Cough deeply from your abdomen and cough up sputum directly into the cup 3. Repeat 2-3 times to obtain approx. 2 teaspoons of phlegm (do not provide spit) 4. Write on the container date and time of collection, full name and date of 5. Refrigerate sample until you are able to bring it into the lab - Routine Gram Stain cultures need to be turned in within 24 hours -AFB or Fungal cultures need to be turned in within 3-5 days -Once removing it from the refrigerator it must be brought to the lab within 2 hours. -You can bring your sample to any [facility]. Please call [phone] with any questions. IFIED APPLIANCE SERVICE TECHNICIAN documented in this encounter Progress Notes Brianne Morgan MD - 12/05/2017 2:45 PM CST Consult dictated BP 122/84 Pulse 90 Ht 5' 11.25 (1.81 m) Wt 199 lb (90.3 kg) SpO2 96% BMI 27.56 kg/m2 IFIED APPLIANCE SERVICE TECHNICIAN Priscila Hunter RN - 12/05/2017 2:45 PM CST Lab reminder letter mailed to pt on 03/13/18. Brianne Morgan MD - 12/05/2017 12:00 PM CST NAME: CECY PRIETO MR#: [id number] CSN: [id number] AUTHENTICATING CLINICIAN: Brianne Morgan MD CONFIRM #: [id number] LOC: [facility] CLINIC CONSULTATION DATE OF CONSULTATION: 12/05/2017 : 1960 REQUESTING PHYSICIAN: Tyrese Arreaga MD REFERRED BY: Dr. Tyrese Arreaga and Dr. Purcell. REASON FOR CONSULTATION: Recurrent bronchitis and asthma. HISTORY OF PRESENT ILLNESS: This is a 57-year-old male with a complex pulmonary history, who presents today for further re-evaluation of persistent symptoms. He has been seen at the [facility] (2014), [facility], and [facility] (Aug 2017) in the past for similar symptoms. He is a challenging historian with tangential thought processes, requiring frequent redirection. He has pressured speech throughout visit. He was originally seen in June 2015 at [facility] for recurrent bronchitis, and a history of mildasthma. Ultimately, he underwent an EGD and bronchoscopy. Bronchoscopy cultures grew Pseudomonas aeruginosa and Acinetobacter. His bronchoscopy showed mucus plugging. He also had a CT scan of the sinuses, which showed mild to moderate right sphenoid sinusitis. His EGD showed a small hiatal hernia. It was also noted that he had a history of alcohol abuse. He does have a history of prior sinus surgery,and an allergy consultation with immunotherapy for cat dander, dust mites, and seasonal triggers. At [facility], it was noted that he had required 3 treatments with Levaquin since February 2014, mainly due to central chest tightness, cough productive of green and yellow sputum, and decreased exercise tolerance. A CT scan of the chest from August 2014 showed minimal central bronchial wall thickening without interstitial lung disease. A small hiatal hernia was also noted. The patient notes that he did better between June 2015 and September 2016, but then started developing more recurrent infections. He then noted in May 2017, he had worsening symptoms, mainly with chest congestion and increased cough. He was given a 5-day trial of prednisone, with some transient improvement. He was then seen again in June with complaints of green sputum production, and it was noted that he was taking inhaled steroids, albuterol nebs, and prednisone. He was started on Levaquin 750mg for a 10-day course, and prednisone 40 mg for 7 days. He was then again seen on July 19, 2017, with an ongoing productive cough, as well as chest tightness and shortness of breath with exercising. He received an additional dose of prednisone 60 mg x3 days, then 40 mg x3 days. He was seen an additional 2 times in July, and noted some improvement. At an appointment on August 08, he wasgiven an additional prednisone taper and Levaquin. On August 27, 2017, he had an additional clinic followup where he complained of cold and cough symptoms for a few days. His white blood cell count was elevated at 15. He was coughing up thick green mucus plugs. He was treated with Levaquin for 5 days, and referred to Pulmonary. Apparently a CT scan of the chest was done that showed mild hyperexpansion of the lungs, but no acute pulmonary infiltrates. He was seen at [facility] on August 20, 2017. At that time, his spirometry showed mild obstruction with a normal total lung capacity, and normal diffusion. He had an exhaled nitric oxide that was relatively normal at 20 parts per billion. It was reviewed that his CT chest did not show anyacute abnormalities, and despite his request, a bronchoscopy was declined by the provider. More recently, the patient notes that he was again sick, and treated with doxycycline in early October; and then a Z-Gerardo starting on November 19. He was also given prednisone tapering from 60 mg down to 20 mg, and took his last dose today. He does feel that the Z-Gerardo and prednisone have improved his symptoms. However, he is still coughing up intermittent green sputum, mixed with milky- colored sputum. He did have some shortness of breath at rest 2 weeks ago, but this has improved. He was able to swim quite vigorously in the pool today without any significant limitations. His prior postnasal drainage and throat clearing have also improved. Of note, he is scheduled for a swallow evaluation tomorrow to assess for aspiration. He otherwise denies paroxysmal nocturnal dyspnea, orthopnea, ankle edema, hemoptysis, sinus pain or pressure, chest pain, heartburn, uncontrolled allergies. He is a lifelong nonsmoker, but had some minimal secondhand smoke exposure growing up. 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 No other significant inhalational exposures. PAST MEDICAL HISTORY: 1. Allergies: Treated with immunotherapy. 2. Gastroesophageal reflux disease. 3. Asthma. 4. Recurrent bronchitis. 5. Alcohol abuse: Decreased in the last 6 months. 6. Small hiatal hernia. 7. History of Pseudomonas on bronchoscopy from 2014, as well as Acinetobacter. 8. Hypertension. 9. Tinnitus. 10. History of colonic polyps. SOCIAL HISTORY: The patient lives at home with his . There are no pets in their home. 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 No recent travel. No known tuberculosis contacts or asbestos exposures. Hobbies include swimming and exercising. History of alcohol abuse, but since May 2017, he was having 1-2 drinks per week; but has not had any in the last 2 weeks. FAMILY HISTORY: Father , age 80, secondary to COPD and lung cancer. Mother alive, age 90, with COPD. Three siblings who are alive and well, including a 65-year-old brother with asthma. His 54-year-old sister from what sounds like a drug overdose. He has 2 adult children in their 20s, who are healthy. Hismaternal grandfather had prostate cancer. ALLERGIES: No known drug allergies. CURRENT MEDICATIONS: 1. Albuterol nebulizer p.r.n. 2. Albuterol inhaler p.r.n. 3. Nexium. 4. Advair 232-21 two puffs inhaled b.i.d. 5. DuoNebs p.r.n. 6. Losartan. 7. Probiotic. 8. Zantac. 9. Valtrex. 10. Recent azithromycin and prednisone, now completed. REVIEW OF SYSTEMS: A 12-point review of systems was completed and negative, except per HPI; as well as possible difficulty swallowing, hearing problems. PHYSICAL EXAMINATION: VITAL SIGNS: Blood pressure 122/84, heart rate 90. Height 5 feet 11 inches, weight 199 pounds, body mass index 27.5. Oxygen saturation 96% on room air at rest, and 95% on room air with ambulation. GENERAL: Middle-aged male, in no acute distress; pressured speech and flight of ideas. Able to speakin full sentences without problems, and no coughing throughout entire visit. HEENT: Moist mucosal membranes, posterior oropharynx clear. NECK: No lymphadenopathy. LUNGS: Scattered wheezing bilaterally, but no rhonchi or rales. CARDIAC: Regular rate and rhythm. EXTREMITIES: No edema. NEUROLOGIC: Alert, appropriate with questions; pressured speech. RESULTS: Pulmonary function tests (today): FVC 113%, FEV1 84%, and ratio 60; consistent with mild obstruction. Post bronchodilator, there is a significant increase in his FVC of 12%; consistent with asthma. Residual volume elevated at 152%. Total lung capacity normal at 131%. Diffusion normal at 115%. Exhaled nitric oxide mildly increased at 35 parts per billion. Outside CT chest from August 2017, images reviewed by me: Clear lungs. No cardiomegaly. No obvious bronchiectasis. IMPRESSION: 1. Recurrent bronchitis: I suspect that this is likely multifactorial from underlying asthma, possible acid reflux given his hiatal hernia, alcohol use, and inhaled corticosteroids. It is possible he could have some aspiration, although he has no obvious signs of aspiration and no known risk factors. He grew Pseudomonas and Acinetobacter from a bronchoscopy in 2014. This was done at the [facility]. Recently treated with doxycycline in early October 2017, and a Z-Gerardo recently. Symptoms are improving. No recent CT imaging since August 2017, which was relatively normal. 2. Moderate persistent asthma: Pulmonary function tests today show mild obstruction, which has actually improved compared to his outside pulmonary function tests at [facility] in August 2017. The pattern on his pulmonary function test is very consistent with asthma, given the bronchodilator response, normal diffusion, and elevated residual volume. He is currently on high-dose Advair, which can potentially increase risk of infection. Recently completed a prednisone taper, with some improvement of his symptoms. 3. History of alcohol abuse: Had cut back since May 2017 to 1-2 drinks per week, but has not had any alcohol in the last 2 weeks. 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 5. Prior relatively normal CT chest in August 2017. No prior high-resolution CT chest performed. 6. Mildly decreased IgG at [facility] in 2014. Has not been evaluated by Immunology or had follow-up testing. 7. Gastroesophageal reflux disease: Certainly could be contributing to ongoing respiratory symptoms. RECOMMENDATIONS: 1. Decrease Advair HFA to the medium dose (115/21) two puffs inhaled b.i.d. 2. Continue albuterol nebulizer. 3. If he is having increased sputum production, would recommend doing his albuterol nebulizer twice a day followed by an Aerobika flutter valve, which he was given today. This will help with airway clearance of mucus. 4. High-resolution CT chest in the next couple weeks. 5. Sputum analysis for AFB, fungal, and routine cultures. 6. Check CBC with differential, IgE, IgA, IgM, and IgG with subclasses. 7. Extended counseling session regarding various etiologies of recurrent bronchitis. 8. No indication for bronchoscopy at this point. 9. Multiple questions answered. Extended counseling. Return to pulmonary clinic in 3 months with spirometry and DLCO, but we will be in contact with results, as available. Total time: 90 minutes. Counseling time. 60 minutes. EAM:MEDQ C: CONFIRM #: [id number] IFIED APPLIANCE SERVICE TECHNICIAN documented in this encounter Plan of Treatment Upcoming Encounters Date Type Specialty Care Team Description 10/10/2022 Appointment Pulmonary 10/10/2022 Office Visit Pulmonary Koki Morgan MD [address] [facility] [address] [facility] [id number] (Wo rk) documented as of this encounter Results CBC - Complete Blood Count W/Diff (03/19/2018 [...] - 03/19/2018 4:37 PM CDT Performed at [facility], [address] [place] [address] CLIA number [id number] Brianne Morgan MD LAB_1 Performing Organization Address City/[facility] Phon e Number PN SOFT [address] [place] [address] [phone] IgG (03/19/2018 4:33 PM CDT) athologist Signature Immunoglobulin G 839 540 - PN SOFT 1,822 mg/dL Specimen Anatomical Collection Method Collection Time Receive d Time (Source) Location / / Volume Laterality 03/19/2018 4:33 PM 8 8:56 CDT PM CDT Narrative PN SOFT - 03/19/2018 9:12 PM CDT Performed at [address] [address] CLIA number [id number] Brianne Morgan MD LAB_1 Performing Organization Address City/[facility] Phon e Number PN SOFT [address] [place] [address] IgG Subclasses 1-4 (03/19/2018 4:33 PM CDT) [...] Refer to test IGG,SERUM ([id number]). Performed at [facility], [address] ??[address] Specimen Anatomical Collection Method Collection Time Receive d Time (Source) Location / / Volume Laterality 03/19/2018 4:33 PM 8 8:57 CDT PM CDT Brianne Morgan MD LAB_1 Performing Organization Address City/[facility]/ZIP Code Phon e Number PN SOFT [address] [place] [address] IgM (03/19/2018 4:33 PM CDT) athologist Signature Immunoglobulin M 82 22 - 240 PN SOFT mg/dL Specimen Anatomical Collection Method Collection Time Receive d Time (Source) Location / / Volume Laterality 03/19/2018 4:33 PM 8 8:56 CDT PM CDT Narrative PN SOFT - 03/19/2018 9:13 PM CDT Performed at [address] [address] CLIA number [id number] Brianne Morgan MD LAB_1 Performing Organization Address City/[facility] Phon e Number PN SOFT [address] [place] [address] IgA, Serum (03/19/2018 4:33 PM CDT) athologist Signature Immunoglobulin A 71 63 - 484 PN SOFT mg/dL Specimen Anatomical Collection Method Collection Time Receive d Time (Source) Location / / Volume Laterality 03/19/2018 4:33 PM 8 8:56 CDT PM CDT Narrative PN SOFT - 03/19/2018 9:13 PM CDT Performed at [facility], [address] [place] [address] CLIA number [id number] Brianne Morgan MD LAB_1 Performing Organization Address [facility]/ZIP Code Phon e Number PN SOFT [address] [place] [address] IgE (03/19/2018 4:33 PM CDT) athologist Signature Immunoglobulin E 109 <=214 kU/L PN SOFT Comment: REFERENCE INTERVAL: Immunoglobulin E, Se rum Access complete set of age- and/or gende r-specific reference intervals for this test in the [facility] ([facility]). Performed by [facility], [address] [place] [id number] [email or web address], Tyree Campuzano MD - Lab . Director Specimen Anatomical Collection Method Collection Time Receive d Time (Source) Location / / Volume Laterality 03/19/2018 4:33 PM 8 8:58 CDT PM CDT Narrative PN SOFT - 03/22/2018 3:44 AM CDT Performed at [facility] [address] [place] [address] CLIA number [id number] Brianne Morgan MD LAB_1 Performing Organization Address [facility] Phon e Number PN SOFT [address] [place] [address] CT Chest WO IV Cont Hi-Res (02/13/2018 [...] Bronchitis, mucopurulent recurrent (HRC) Mucopurulent chronic bronchitis Allergic rhinitis, unspecified chronicit y, unspecified seasonality, unspecified trigger Gastroesophageal reflux disease, esophag itis presence not specified Hiatal hernia Diaphragmatic hernia without mention of obstruction or gangrene Moderate persistent asthma without compl ication (HRC) Unspecified asthma Bronchitis, mucopurulent recurrent (HRC) Mucopurulent chronic bronchitis Bronchitis, mucopurulent recurrent (HRC) Mucopurulent chronic bronchitis Moderate persistent asthma without compl ication (HRC) Unspecified asthma documented in this encounter Care Teams Net Web Developer Relationship Specialty Start Date End Date Tyrese Arreaga MD PCP - General 02/11/11 03/01/19 [place] [address] documented as of this encounter
--- OUTSIDE RECORDS SUMMARY | 2022-09-21 10:01 | XMS_ITS | Encounter Summary ---
:1960 Author Organization [facility] Address [address] [place] [address] Care Team Providers Name Role Phone Tyrese Arreaga MD Primary Care Provider Encounter Details Date Type Department Care Team Description 11/10/2002 PN Conversion Only [facility] 380 Emmanuel Leon MD Allergy [address] [facility] [address] [facility] [place] [address] [id number] [phone] Social History Tobacco Use Types Packs/Day Years Used Date Smoking Tobacco: Never Assessed Sex Assigned at Date Recorded Not on file documented as of this encounter Progress Notes Conversion, [facility] - 11/24/2002 12:01 AM CST Phone Note signed by at 11/24/02 0949 Author: [facility] Conversion Service: (none) Author Type: (none) Filed: 03/01/11 1122 Note Time: 11/24/02 0001 Status: Signed Circulator: Wendy Conversion IMPRESSION: rx request TO: BENJAMIN LEON FROM: TITA LEVY [id number] 11/24/02 * PROVIDER MESSAGE: ROUTINE * 09:49AM * *WITHIN 4 HOURS * MESSAGE: Needs 90 day written rx for * HOME PHONE:[phone] * azmacort, maciel and albuterol. * CONTACT PHONE:[phone] * Mail to home * pt * SUBJECTIVE: ALLERGIES/SENSITIVITIES... NKDA 11/24/02 CURRENT MEDICATIONS... maciel 60mg bid, albuterol prn, azmacort 3p bid 11/24/02 PERTINENT PAST HISTORY... 11/24/02 WEIGHT: ASSESSMENT: rx request PLAN: DISPOSITION: NON-URGENT Verbalizes understanding and agrees with phone care recommendation CALL BY TITA LEVY NON 11/24/2002 09:48AM [id number] ADDENDUM: <> 11/24/2002 03:57PM by TITA LEVY: rx mailed per Deborah UNTS PAYABLE ASSOCIATE Benjamin Leon MD - 11/10/2002 12:01 AM CST Progress Notes signed by Benjamin Leon MD at 12/09/02 0755 Author: Benjamin Leon MD Service: (none) Author Type: Physician Filed: 03/01/11 1102 Note Time: 11/10/02 0001 Status: Signed Circulator: Benjamin Leon MD (Physician) IMPRESSION: Asthma, under good control. Allergic rhinitis. SUBJECTIVE: Timur is a 42-year-old male who has asthma and allergic rhinitis. He has been on immunotherapy for the last seven years with extracts consisting of grass and ragweed as well as dust mites. He has had excellent control of his nasal allergies this last year. A new problem that he has been dealing with is ringing of the ears and apparently, some inflammation in his middle ear. He was on a Medrol Dosepak, which did help, but made him quite irritable and caused some hyperness and irritability. He has mild asthma, which is controlled on Azmacort three puffs b.i.d. with the rare occasional need for albuterol. OBJECTIVE: VS: BP: 116/82. Ht: 73-1/4 in. Wt: 194 lb. Exam reveals a 42-year-old male. HEENT: Normal. Nasal airway was minimally obstructed. Minimal secretions noted. Pharynx was clear. CHEST: Clear to auscultation and percussion. HEART: Sounds were normal. The rest of the exam was negative. Spirometry today is normal with vital capacity of 6.76 liters at 121%, FEV1 is 4.79 liters at 107%, and FEF 25/75 is 3.32 liters at 76%. ASSESSMENT: 1. Asthma, under good control. 2. Allergic rhinitis. PLAN: Mr. Christensen is doing very well and has markedly improved since being on immunotherapy. He has new serum and would like to stay on the shots one more year before considering discontinuing. Refills for Azmacort and albuterol as well as Maciel 60 mg were provided and will have him return in one year. TT: CT: [id number] C: 11/10/02 12:24 DOCUMENT: [id number] UNTS PAYABLE ASSOCIATE Benjamin Leon MD - 11/10/2001 12:01 AM CST Progress Notes signed by Benjamin Leon MD at 06/03/02 1645 Author: Benjamin Leon MD Service: (none) Author Type: Physician Filed: 03/01/11 0229 Note Time: 11/10/01 0001 Status: Signed Circulator: Benjamin Leon MD (Physician) IMPRESSION: Asthma. Allergic rhinitis. SUBJECTIVE: HPI: Timur is a 41-year-old male who has a long history of asthma, which he has actually done quite well on a regimen of Azmacort three puffs b.i.d. with albuterol that he usually takes each morning to clear his lungs, and also before exercise. He does have inhalant allergies and has been on immunotherapy for almost six years with a combination of grass/ragweed and a second extract with dust mites. He gets his injections in [place]. He got a bit behind schedule this year, but he is back up to top dose with just some serum he was provided with. He has had the flu, got somewhat dehydrated, but otherwise is doing fine. OBJECTIVE: VS/Gen: BP: 140/86. Ht: 73-1/4 in. Wt: 187 lb. Exam reveals a 41-year-old male. HEENT: Unremarkable. Nasal airway reveals slight turbinate edema, some secretions. TMs and ear canals are normal. Pharynx is clear. LUNGS: Chest today reveals no wheezing, even on forced expiration. CV: Heart sounds are normal. The rest of the exam was negative. Spirometry reveals a vital capacity of 7.12 liters at 126%. FEV1 is 4.96 liters at 109%. FEF 25%-75% is 3.38 liters at 77%. ASSESSMENT: 1. Asthma. 2. Allergic rhinitis. PLAN: Overall, Mr. Christensen is doing well, and we will continue the injections on a monthly interval for at least another year. Refills for Maciel, Azmacort and albuterol were all provided as well, and we will have him return in one year. TT: CT: [id number] C: DOCUMENT: [id number] Benjamin Leon MD - 11/05/2000 12:01 AM CST Progress Notes signed by Benjamin Leon MD at 12/20/00 0605 Author: Benjamin Leon MD Service: (none) Author Type: Physician Filed: 02/28/111939 Note Time: 11/05/00 0001 Status: Signed Circulator: Benjamin Leon MD (Physician) IMPRESSION: Asthma, under good control. Allergic rhinitis. SUBJECTIVE: Timur is a 40-year-old male with asthma and allergic rhinitis. He has taken immunotherapy for almost five years and has done very well with extracts consisting of dust mites as well as grass and ragweed. He has been getting the shots at the [facility] in [place]. His asthma meds consist of Azmacort three puffs b.i.d., Maciel 60 mg twice a day and the occasional use of albuterol. He is not regularly taking Serevent at this moment. At this time he seems to be very happy with his overall control. OBJECTIVE: BP: 122/78. Ht: 73-1/4 inches. Wt: 200 pounds. Exam reveals a 40-year-old male. His HEENT exam was normal. His nasal airway was unobstructed. Pharynx was clear. Chest was clear. No wheezing was noted and the rest of the exam was negative. ASSESSMENT: 1. Asthma, under good control. 2. Allergic rhinitis. PLAN: At this point Timur is doing well and is quite stable. We probably will have him continue the injections for another year. Refills for Azmacort, Maciel 60 mg and albuterol were provided. We will have him return at that time for followup. CC: [place] [address] RAW:[id number] C: DOCUMENT: [id number] UNTS PAYABLE ASSOCIATE Benjamin Leon MD - 11/07/1999 12:01 AM CST Progress Notes signed by Benjamin Leon MD at 11/29/99 1608 Author: Benjamin Leon MD Service: (none) Author Type: Physician Filed: 02/28/11 1401 Note Time: 11/07/99 0001 Status: Signed Circulator: Benjamin Leon MD (Physician) IMPRESSION: Asthma. Allergic rhinitis. Upper respiratory infection. SUBJECTIVE: Timur is a 39-year-old male who has been on immunotherapy for four and-a-half years with extracts of dust mites as well as grass and ragweed. He has done extremely well with a marked overall reduction in allergic rhinitis symptoms. He does have Maciel that he takes bid and for asthma, he takes Azmacort 4 puffs bid, Serevent 2 puffs prn and albuterol just as needed. For the last week or so, he has had a cold with some discolored secretion and initially some pain, but this is beginning to improve on its own. OBJECTIVE: BP: 130/88 H: 73 1/4 W: 199 Exam reveals a 39-year-old male. HENT exam reveals no tenderness over the maxillary frontal sinuses. Turbinates were just slightly enlarged. There were no secretions. Pharynx was clear. Chest was clear. No wheezing was noted. Spirometry today reveals a vital capacity of 6.49 ltrs at 114%; FEV 1 is 4.34 ltrs at 95%; FEF 25-75 is 2.87 ltrs at 64%. ASSESSMENT: 1) Asthma. 2) Allergic rhinitis. 3) Upper respiratory infection. PLAN: Overall, Timur has done very well after another year of immunotherapy we may be able to consider discontinuing. His asthma medications were refilled as noted above along with Maciel, but he also was given some samples of Entex LA that can be used for the next four to seven days in order to help control the congestion from the cold. We will have him return in one year for follow up. RAW:[id number] C: DOCUMENT: [id number] UNTS PAYABLE ASSOCIATE Benjamin Leon MD - 11/25/1998 12:01 AM CST Progress Notes signed by Benjamin Leon MD at 01/23/99 1335 Author: Benjamin Leon MD Service: (none) Author Type: Physician Filed: 02/28/11 0809 Note Time: 11/25/98 0001 Status: Signed Circulator: Benjamin Leon MD (Physician) IMPRESSION: (1) Asthma, under good control. (2) Allergic rhinitis. SUBJECTIVE: Timur Christensen is a 38-year-old male with a history of allergic rhinitis who has responded very well to injections of dust mite as well as grass and ragweed. He started this in February of 1995. This last year he only used Maciel on a prn basis. His asthma has actually been quite stable, and he did extremely well on Flovent, but he eventually went off this medication because it had caused some hoarseness and it affected his singing voice. In July he had strep pharyngitis and went on penicillin and the cough that he had had for months resolved. He is currently on Azmacort 2 puffs bid, Serevent 2 puffs bid, Albuterol 2 puffs prn although he usually uses it in the morning, and Maciel. OBJECTIVE: BP: 120/82. Height: 73. Weight: 207 lb. Exam reveals a 38-year-old male. His HENT exam is normal. His turbinates are only slightly enlarged. Pharynx is clear. Chest is clear. Spirometry is stable with a vital capacity of 7.36 liters at 129%, FEV1 is 4.75 liters at 104%. ASSESSMENT: 1. Asthma, under good control. 2. Allergic rhinitis. PLAN: At this point Timur is very happy with his regimen and has no intention of going off injections any time soon. Refills for all of his current meds. were provided and will have him return next year for follow-up. lap UNTS PAYABLE ASSOCIATE Benjamin Leon MD - 10/22/1997 12:01 AM CST Progress Notes signed by Benjamin Leon MD at 11/15/97 1333 Author: Benjamin Leon MD Service: (none) Author Type: Physician Filed: 02/28/11 0202 Note Time: 10/22/97 0001 Status: Signed Circulator: Benjamin Leon MD (Physician) IMPRESSION: (1) Asthma. (2) Allergic rhinitis. SUBJECTIVE: Mr. Timur Christensen is a 37-year-old male with asthma and allergic rhinitis who has been on immunotherapy since February for grass, ragweed, and dust mites. He has had a superb response to the injections and this last summer only had to on occasion take Maciel which has been quite effective in providing relief. He still has asthma and has not been all that consistent with his meds. in that with his Azmacort he may fire his inhaler 3-4 times immediately in a row with each breath. He currently takes 2-3 puffs of Serevent once a day and up to 6 puffs of Azmacort a day and uses Albuterol prior to exercise. OBJECTIVE: BP: 130/80. Height: 73-1/2. Weight: 201 lb. Exam revealed a 37-year-old male. His HENT exam was normal. Turbinates were minimally enlarged. Pharynx was clear. His chest was clear and there was no significant wheezing. Spirometry revealed a vital capacity of 6.49 liters at 114%, FEV1 was 4.54 liters at 99%, and FEF 25-75 was 3.23 liters at 71%. ASSESSMENT: 1. Asthma. 2. Allergic rhinitis. PLAN: Overall Mr. Christensen is doing well. Will continue the shots on an every month interval and since his asthma is still starting to interfere a bit with his exercise and because of compliance issues, will switch him to Flovent 2 puffs of the 220 mcg dosage at night along with the Serevent and to continue using Albuterol prn and prior to exercise. He was given refills for Maciel for prn use and will have him return in one year for follow-up. cc: [facility] [address] [place] [address] lap UNTS PAYABLE ASSOCIATE documented in this encounter Plan of Treatment Upcoming Encounters Date Type Specialty Care Team Description 10/10/2022 Appointment Pulmonary 10/10/2022 Office Visit Pulmonary Koki Morgan MD [address] [facility] [address] [facility] [address] (Wo rk) documented as of this encounter Visit Diagnoses Not on filedocumented in this encounter Care Teams Flexographic Press Helper Relationship Specialty Start Date End Date Tyrese Arreaga MD PCP - General 02/11/11 03/01/19 [place] [address] documented as of this encounter
--- OUTSIDE RECORDS SUMMARY | 2022-09-21 10:01 | XMS_ITS | Encounter Summary ---
:1960 Author Organization [facility] Address [address] [place] [address] Care Team Providers Name Role Phone Tyrese Arreaga MD Primary Care Provider Reason for Referral (Routine) - Closed Specialty Diagnoses / Procedures Referred By Contact Refer red To Contact Diagnoses Gastroesophageal reflux disease, esophagitis presence not specified Trish Rueda APRN, Procedures Manometry Esophageal COMPUTING SERVICES DIRECTOR [address] [place] [address] Referral ID Status Reason Start Date Expiration Date Visits Requ ested Visits Authorized [id number] Closed 12/16/2017 03/17/2019 1 1 Reason for Visit (Routine) - Closed Specialty Diagnoses / Procedures Referred By Contact Refer red To Contact Diagnoses Gastroesophageal reflux disease, esophagitis presence not specified Trish Rueda APRN, Procedures Manometry Esophageal COMPUTING SERVICES DIRECTOR [address] [place] [address] Referral ID Status Reason Start Date Expiration Date Visits Requ ested Visits Authorized [id number] Closed 12/16/2017 03/17/2019 1 1 Encounter Details Date Type Department Care Team Description 01/21/2018 Hospital Encounter Specialty Center Gastr oesophageal reflux 6500 Endoscopy disease, esophagitis [address] [place] [address] Social History Tobacco Use Types Packs/Day Years Used Date Smoking Tobacco: Never Smokeless Tobacco: Never Alcohol Use Standard Drinks/Week Comments Yes 0 (1 standard drink = 0.6 oz pure alcoho l) Rare Sex Assigned at Date Recorded Not on file documented as of this encounter Last Filed Vital Signs Vital Sign Reading Time Taken Comments Blood Pressure 134/96 01/21/2018 3:10 PM CDT Pulse 67 01/21/2018 3:10 PM CDT Temperature - - Respiratory Rate 18 01/21/2018 3:10 PM CDT Oxygen Saturation 97% 01/21/2018 3:10 PM CDT Inhaled Oxygen Concentration - - Weight - - Height 185.4 cm (6' 1) 01/21/2018 3:09 PM CDT Body Mass Index - - documented in this encounter Medications at Time of Discharge [...] 3 06/10/2020 108 (90 BASE) MCG/ACT inhaler fluticasone-salmeterol Inhale 2 Puffs two 1 Inhaler [...] documented as of this encounter Progress Notes Paty Diaz RN - 01/21/2018 4:03 PM CDT Patient tolerated procedure well documented in this encounter Procedure Notes Daren Bashir MD - 01/21/2018 11:59 PM CDTAssociated Order(s): MANOMETRY ESOPHAGEAL Name: Timur Christensen : 1960 Date of Service: 01/22/2018 Endoscopist: Daren Bashir MD Referring Provider(s): Trish Rueda APRN Type of Study: High resolution esophageal manometry study Indication for the study: Patient is a 57 yo M undergoing evaluation for GERD and respiratory illnesses. He has had respiratory issues since mid-2016. Symptoms include chronic cough. Worse with EtOH. Aswallow study suggested there may be esophageal dysphagia present. Pertinent Gastrointestinal Investigations: EGD 2014 ([place]): small hiatal hernia, multiple plaques inmiddle 3rd of esophagus. Pathology not available. 11/2017 Swallow study: unremarkable. Pertinent medications: nexium 40mg PO qdaily Procedure information: High resolution esophageal manometry study was performed using the [employer] system. Patient arrived after overnight fasting. A motility catheter with 36 circumferential sensors on 1 cm spacing was inserted trasnasally after application of topical anesthesia to the nasal passage. The catheter was positioned so that at least 2 distal sensors were in the stomach and 2 proximal sensors were located above the upper esophageal sphincter. A 5- minute acclimation period was provided followed by 10 wet swallows in the supine position. Findings: Upper Esophageal Sphincter: The upper esophageal sphincter relaxed normally in response to all 10 wet swallows in supine position. The resting mean basal pressure of the UES is 105.1 (normal 34-104 mmHg). The mean residual pressure of the UES was -5.6 mmHg (normal <12.0). Esophageal Body: For the 10 wet swallows in supine position: In the esophageal body 10/10 wet swallows were followed by peristalsis (100%), 0/10 by simultaneous contraction (0%), and 0/10 by failed contractions (0%). The distal contractile integral was 2775.8 mmHg/cm/sec (normal 450 to 8000). The distal latency measured on average 7.7 (normal > 4.5 s) with 0/10 (0%) considered premature contractions. Complete bolus clearance occurred in 0/10 (0%) of swallows. Lower Esophageal Sphincter: The mean basal pressure of the lower esophageal sphincter was 23.1 mmHg (normal for wet swallows is 13 to 43 mmHg) for the 10 wet swallows in the supine position. The lower esophageal sphincter showed adequate relaxation in response to 10 wet swallows in supine position with an IRP of 9.6 mmHg (normal less than 15 mmHg). IMPRESSION: 1. Adequate relaxation of the upper esophageal sphincter. Slightly hypertensive resting UES that appropriately relaxed. 2. The motility of the esophageal body is normal. There was complete bolus clearance in all swallows. 3. The LES demonstrated adequate resting pressure and relaxation. 4. Based on [place] Classification v3.0, this study is unremarkable. There is no clear etiology of patient's symptoms nor any etiology of dysphagia present. Daren Bashir MD Gastroenterology Pager: documented in this encounter Plan of Treatment Upcoming Encounters Date Type Specialty Care Team Description 10/10/2022 Appointment Pulmonary 10/10/2022 Office Visit Pulmonary Koki Morgan MD [address] [facility] [address] [facility] [id number] (Wo rk) documented as of this encounter Procedures Procedure Name Priority Date/Time Associated Diagnosis Comme nts MANOMETRY Routine 01/24/2018 4:13 Gastroesophageal reflux R esults for this ESOPHAGEAL PM CDT disease, esophagitis procedu re are in presence not specified the r esults section. documented in this encounter Results Manometry Esophageal (01/24/2018 4:13 [...] present. Pertinent Gastrointestinal Investigation s: EGD 2014 ([place]): small hiatal hernia, multiple plaques in middl e 3rd of esophagus. Pathology not available. 11/2017 Swallow study: unremarkable. Pertinent medications: nexium 40mg PO qd aily Procedure information: High resolution e sophageal manometry study was performed using the [employer] system. P atient arrived after overnight fasting. [...] resting pressure and relaxation. 4. Based on [place] Classification v3.0, this study is unremarkable. There is no clear etiology of patient's symptoms nor any etiology of dysphagia present. Daren Bashir MD Gastroenterology Pager: Trish Rueda NUTRITION COORDINATOR, COMPUTING SERVICES DIRECTOR PN GI PROCEDURE ORDERABLES Performing Organization Address City/State/ZIP Code Phon e Number PN PROVATION documented in this encounter Visit Diagnoses Diagnosis Gastroesophageal reflux disease, esophag itis presence not specified documented in this encounter Administered Medications Inactive Administered Medications - up to 3 most recent administrations Medication Order MAR Action Action Date Dose Rate Site benzocaine (HURRICAINE) 20 % oral Given 01/21/2018 4:03 PM CDT 1 Each spray 1 Each 1 Each (1 [place]), Oral, ONCE (NON-SCHEDULED), Starting on Sat01/21/18 at 1446, For 1 dose, Hazardous waste disposal required. lidocaine (XYLOCAINE) 2 % gel Given 01/21/2018 4:03 PM CDT 5 mL Other (Comment) Topical, ONCE PRN, for manometry probe insertion, Starting on Sat01/21/18 at 1446, For 1 dose documented in this encounter Care Teams Tile Molder Hand Relationship Specialty Start Date End Date Tyrese Arreaga MD PCP - General 02/11/11 03/01/19 [place] [address] documented as of this encounter
--- OUTSIDE RECORDS SUMMARY | 2022-09-21 10:01 | XMS_ITS | Encounter Summary ---
:1960 Author Organization [facility] Address [address] [place] [address] Care Team Providers Name Role Phone Tyrese Arreaga MD Primary Care Provider Reason for Visit Procedure/Equipment (Routine) - Incomplete Specialty Diagnoses / Procedures Referred By Contact Refer red To Contact Diagnoses Gastroesophageal reflux disease, esophagitis presence not specified Trish Rueda, FINANCIAL SERVICE REP, Procedures FL Video Swallow Study ELECTRIC METER READER [address] [place] [address] Referral ID Status Reason Start Date Expiration Date Visits V isits Requested Authorized [id number] Incomplete 11/22/2017 02/21/2019 1 1 Encounter Details Date Type Department Care Team Description 12/10/2017 Imaging [facility] [address], Gas troesophageal reflux Radiology FINANCIAL SERVICE REP, ELECTRIC METER READER disease, esophagitis [address] [facility] [address] presence not specified [address] [facility] [address] [phone] Social History Tobacco Use Types Packs/Day Years [...] Office Visit Pulmonary Koki Morgan MD [address] [facility] [address] [address] (Wo rk) documented as of this encounter Procedures Procedure Name Priority Date/Time Associated Diagnosis Comme nts FL VIDEO SWALLOW Routine 12/10/2017 11:07 Gastroesophageal ref lux Results for this STUDY AM BRICK MACHINE OPERATOR disease, esophagitis procedu re are in presence not specified the r esults section. documented in this encounter Results FL Video Swallow Study (12/10/2017 11:07 AM BRICK MACHINE OPERATOR) Anatomical Region Laterality Modality Neck, Chest Computed Radiography Specimen (Source) Anatomical Collection Method Collection Time Re ceived Time Location / / Volume Laterality 12/10/2017 10:57 AM BRICK MACHINE OPERATOR Impressions 12/10/2017 11:34 AM BRICK MACHINE OPERATOR IMPRESSION: ??Video swallow within normal limits. Narrative 12/10/2017 11:34 AM BRICK MACHINE OPERATOR COMPARISON: ??None. FINDINGS: ??The examination was performe d in conjunction with speech pathology and was videotaped. Please refer to [facility] for the speech pathology report. Swallowing appeared [...] pathology and was videotaped. Please refer to [facility] for the speech pathology report. Swallowing appeared normal with thin barium, puree, barium-coated cracker and other barium-c oated or mixed products. There is no aspiration, penetration or significant retention. Peristalsis and motility are normal. IMPRESSION IMPRESSION: Video swallow within normal limits. Trish Rueda FINANCIAL SERVICE REP, ELECTRIC METER READER RAD FL documented in this encounter Visit Diagnoses Diagnosis Gastroesophageal reflux disease, esophag itis presence not specified documented in this encounter Care Teams Translator And Interpreter Relationship Specialty Start Date End Date Tyrese Arreaga MD PCP - General 02/11/11 03/01/19 [place] [address] documented as of this encounter
--- OUTSIDE RECORDS SUMMARY | 2022-09-21 10:01 | XMS_ITS | Encounter Summary ---
:1960 Author Organization [email or web address] Address [address] [place] [address] Care Team Providers Name Role Phone Tyrese Arreaga MD Primary Care Provider Encounter Details Date Type Department Care Team Description 02/10/2018 Lab Visit [facility] Bronchitis, mucopurulent [id number] recurrent (HRC) [place] [address] Social History Tobacco Use Types [...] [address] [facility] [address] [facility] [id number] (Wo rk) documented as of this encounter Procedures Procedure Name Priority Date/Time Associated Diagnosis Comme nts SPUTUM CULTURE & Routine 02/10/2018 7:30 AM Bronchitis, Resul ts for this SMEAR CDT mucopurulent procedure are i n recurrent (HRC) the results section. FUNGUS Routine 02/10/2018 7:30 AM Bronchitis, Results f or this CULTURE,MISCELLANEO CDT mucopurulent procedur e are in [place] recurrent (HRC) the results section. AFB CULTURE Routine 02/10/2018 7:30 AM Bronchitis, Results f or this CDT mucopurulent procedure are i n recurrent (HRC) the results section. documented in this encounter Results Fungal Culture and Stain [CFUNG] (02/10/2018 7:30 AM CDT) [facility] Method Time Signature Source Sputum PN SOFT Site expectorated PN SOFT Fungus Culture No Fungus Isolated 03/13/2018 PN SO FT No Nocardia Isolated 8:43 AM CDT Calcofluor No Yeast or 03/13/2018 PN SOFT White Fungal Fungal Elements 8:43 AM CDT Stain Found Specimen (Source) Anatomical Collection Method Collection Time Re ceived Time Location / / Volume Laterality Sputum:expectorat 02/10/2018 7:30 AM ed CDT Narrative PN SOFT - 03/13/2018 8:43 AM CDT Performed at [facility], [address] [place] [address], CLIA Number [id number] Brianne Morgan MD LAB_1 Performing Organization Address [facility] Code Phon e Number PN SOFT [address] [place] [address] AFB Culture and Stain [CAFB] (02/10/2018 7:30 AM CDT) [facility] Method Time Signature Source Sputum PN SOFT Site expectorated PN SOFT AFB Culture No Mycobacteria 03/27/2018 PN SOFT Isolated 8:50 AM CDT AFB Smear No Acid Fast Bacilli Found 03/27/2018 PN SOFT 5 Total specimen volume in cc's: 8:50 AM CDT Specimen (Source) Anatomical Collection Method Collection Time Re ceived Time Location / / Volume Laterality Sputum:expectorat 02/10/2018 7:30 AM ed CDT Narrative PN SOFT - 03/27/2018 8:50 AM CDT Performed at [facility], [address] [place] [id number], CLIA Number [id number] Brianne Morgan MD LAB_1 Performing Organization Address [facility] Phon e Number PN SOFT [address] [place] [address] (ABNORMAL) Sputum Culture and Gram Stain [CSPT] (02/10/2018 7:30 AM CDT) [facility] Method Time Signature Source Sputum PN SOFT Site expectorated PN SOFT Sputum 90% Moraxella (Branhamella) catarrhalis 02/18/2018 PN SOFT Culture <10% Aspergillus species, not fumigatus 1:25 PM CDT (A) Gram Stain <25 PMN'S/Low Power Field 02/18/2018 PN SOFT <10 Epithelial Cells/Low Power Field 1:2 5 PM CDT Moderate Gram Positive Cocci (A) Sputum Moraxella 02/18/2018 PN SOFT Culture (Branhamella) 1:25 PM CDT catarrhalis (A) Organism 90% (A) 02/18/2018 PN SOFT Comment 1:25 PM CDT Sputum Aspergillus NOT 02/18/2018 PN SOFT Culture fumigatus (A) 1:25 PM CDT Organism <10% (A) 02/18/2018 PN SOFT Comment 1:25 PM CDT Specimen (Source) Anatomical Collection Method Collection Time Re ceived Time Location / / Volume Laterality Sputum:expectorat 02/10/2018 7:30 AM ed CDT Narrative PN SOFT - 02/18/2018 1:25 PM CDT Performed at [facility], [address] [place] [address], CLIA Number [id number] Brianne Morgan MD LAB_1 Performing Organization Address City/State/ZIP Code Phon e Number PN SOFT [address] [place] [address] [phone] documented in this encounter Visit Diagnoses Diagnosis Bronchitis, mucopurulent recurrent (HRC) Mucopurulent chronic bronchitis documented in this encounter Care Teams Chief Building Inspector Relationship Specialty Start Date End Date Tyrese Arreaga MD PCP - General 02/11/11 03/01/19 [place] [address] documented as of this encounter
--- OUTSIDE RECORDS SUMMARY | 2022-09-21 10:01 | XMS_ITS | Encounter Summary ---
:1960 [facility] Address [address], [place] [address] Care Team Providers Name Role Phone Unassigned, Provider Primary Care Provider Unavailable Encounter Details Date Type Department Care Team Description 12/02/2000 Orders Only Unassigned, Prov ider [address] [place] [address] Social History Tobacco Use Types Packs/Day Years Used Date Smoking Tobacco: Never Assessed Sex Assigned at Date Recorded Not on file documented as of this encounter Plan of Treatment Upcoming Encounters Date Type Specialty Care Team Description 10/10/2022 Appointment Pulmonary 10/10/2022 Office Visit Pulmonary Koki Morgan MD [address] [facility] [address] [place] [phone] (Wo rk) documented as of this encounter Visit Diagnoses Not on filedocumented in this encounter Care Teams Backside Grinder Relationship Specialty Start Date End Date Unassigned, Provider PCP - General 11/13/00 02/10/11 [address] [place] [address] documented as of this encounter
--- OUTSIDE RECORDS SUMMARY | 2022-09-21 10:01 | XMS_ITS | Encounter Summary ---
:1960 [facility] Address [address] [place] [address] Care Team Providers Name Role Phone Tyrese Arreaga MD Primary Care Provider Reason for Visit Reason Comments Dysphagia Therapies (Routine) - Closed Specialty Diagnoses / Procedures Referred By Contact Refer red To Contact Diagnoses Gastroesophageal reflux disease, esophagitis presence not specified Trish Rueda, INTELLECTUAL PROPERTY PARALEGAL, CONSTRUCTION REPRESENTATIVE [address] [place] [address] Referral ID Status Reason Start Date Expiration Date Visits Requ ested Visits Authorized [id number] Closed 11/22/2017 01/21/2018 1 1 Encounter Details Date Type Department Care Team Description 12/10/2017 Office Visit [facility] [address] , BELT SANDER Other dysphagia Speech Language [address] (Primary Dx) Pathology [address] [address] [facility] [place] [address] Social History Tobacco Use Types Packs/Day Years Used Date Smoking Tobacco: Never Smokeless Tobacco: Never Alcohol Use Standard Drinks/Week Comments Yes 0 (1 standard drink = 0.6 oz pure alcoho l) Rare Sex Assigned at Date Recorded Not on file documented as of this encounter Progress Notes Raquel Grande SLP - 12/10/2017 11:00 AM CST Encounter Date: 12/10/2017 Patient's : 1960 Speech Therapy - Video Swallow [facility] Outpatient evaluation, no plan of care. Referring Provider: Trish Rueda Visit Diagnosis: 1. Other dysphagia Precautions: None. Orders: Evaluation and treatment. Onset/Referral Date: 11/22/17. SUBJECTIVE Reason for Visit: Patient was recently seen in GI who noted a detailed history of recurrent bronchitis/pneumonia. In June 2017 the patient was noted to have asthma and COPD. In July 2017 he continually struggled with thick mucus. In August [address] was done which found mildly hyper-expanded clear lungs (no infiltrates), diagnosis of COPD was continued. In September 2017 and November 2017 patient presented with flu like symptoms (flu test negative). He had an EGD at [facility] in 2014 which showed a small hiatal hernia. He reported to that he will wake up coughing and have a hoarse voice in the mornings, worse when he has had alcohol. He takes refluxmedication consistently and did not report any overt heartburn. discussed reflux diet and lifestyle changes with him along with how to take the PPI medication correctly. A video swallow eval was recommended to further assess for aspiration. Today the patient reports that his symptoms have been better since he started taking the PPI medication correctly. He denies problems with swallowing or pain with swallowing. Patient Therapy Goal: find out if I am aspirating Past Medical History: Past medical history, medication, and allergies were reviewed in the electronic medical record. History pertinent to therapy includes pseudomonas; HTN, GERD, Hiatal hernia; and Tinnitus.. Pain: Patient denies having any pain (0 out of 10 on the pain scale). Respiratory Status: On room air. Dentition: Adequate. Diet at Time of this Evaluation: General texture. Any liquids. Esophagram Completed Today: No. Previous Swallow Evaluation/Results: None in Electronic Medical Records. Marital Status: Unknown. Living Arrangement: Lives independently. OBJECTIVE Observation: Cooperative. Voice/Speech: Within normal limits. Oral Motor Function: Within functional limits. Video Recording: Video swallow recorded at [facility], miller images sent to PACS and the full exam is store in the Speech Pathology department. Observed Swallow in: Lateral view. Anterior-posterior view. Textures: -THIN LIQUIDS: Tested by: small sip by cup, regular sip by cup, consecutive sip by cup Oral and pharyngeal function are within normal limits -PUREE: Oral and pharyngeal function are within normal limits -SOLID (Cracker): Oral and pharyngeal function are within normal limits -MIXED (Liquid with a solid, i.e soup or cereal): Tested with thin liquids. Oral and pharyngeal function are within normal limits Definitions: Penetration: the entry of material into the upper airway that does not go below the true vocal folds. Aspiration: the entry of material into the airway below the true vocal folds. Silent Aspiration: aspiration with no attempt to eject (no cough response). Speech Outcomes: Total Treatment Time: 30 minutes ASSESSMENT Therapist Impression/Summary: The patient's oropharyngeal swallow function is WNL. The patient has adequate and timely epiglottic inversion to protect the airway. No pharyngeal stasis seen. No Zenker'sdiverticulum. Good bolus clearance through the upper esophagus. Most remarkable was that his right pyriform sinus was deeper than his left (normal variant). The patient's clinical symptoms are concerning for possible esophageal dysphagia. The patient followup with GI to discuss possible esophageal dysmotility along with ensuring that any reflux is under control. Reviewed the reflux diet with the patient as he continues to drink caffeine beverages. Recommendations: No further swallowing therapy is indicated at this time. Senior Care Goal: -None Short Term Goals: -None. Potential Barriers to Goal Achievement or Learning: None apparent. Prognosis: Excellent. PLAN Education: Patient and/or family educated on results and recommendations. Frequency/Duration: Eval only, no treatment recommended at this time. Speech - Discharge Total Visits: 1 Reason for discharge: Planned one-time evaluation, treatment and/or recommendations provided. Primary Therapist: Discharging Therapist Discharge Plan: Evaluation only, patient discharged after this visit. Informed Consent: Patient and/or family in agreement with care plan. Diet Recommendations: -General texture diet. -Any liquid. Swallow Recommendations: -Self management strategies for reflux including: avoid foods known to promote acid production, drink lots of water during the day, avoid eating 2-3 hours before bedtime, sleep with head of bed elevated, take additional time between bites (put fork down between bites), smaller meals more frequently throughout the day. -Chew non-mint gum for 20 minutes after meals to promote saliva production and increase frequency ofswallows. Repeat Video Swallow: PRN. Referral Recommendations: GI. No plan of care certification necessary. OFICHE DUPLICATOR documented in this encounter Plan of Treatment Upcoming Encounters Date Type Specialty Care Team Description 10/10/2022 Appointment Pulmonary 10/10/2022 Office Visit Pulmonary Koki Morgan MD [address] [facility] [address] (Wo rk) Scheduled Referrals Name Type Priority Associated Diagnoses Order S chedule Speech Therapy Referral Routine Gastroesophageal reflux aly jaramillo, Ordered: 11/22/2017 esophagitis presence not specified documented as of this encounter Visit Diagnoses Diagnosis Other dysphagia - Primary documented in this encounter Care Teams Advance Scout Relationship Specialty Start Date End Date Tyrese Arreaga MD PCP - General 02/11/11 03/01/19 [place] [address] documented as of this encounter
== END 2022-09-17 14:20 | disposition home or self-care (01) ==
LOC: LKVREF 09-21 09:58
PROVIDERS: PCP Family Medicine; Visit Provider Nurse Practitioner Family
DX: R30.0 Dysuria (principal); N39.0 Urinary tract infection, site not specified
CPT/HCPCS: 87086; 87186

== ENCOUNTER 2022-11-02 11:47 | Outpatient (CLI) | payer OTHER, SELFPAY ==
[2022-11-02 15:21] LABS: Albumin* 4.5 g/dL (3.3-5.0); Chloride* 109 mmol/L (96-114)
[2022-11-02 15:22] LABS: Potassium* 5.4 mmol/L (3.6-5.1); Sodium* 142 mmol/L (135-149)
[2022-11-02 15:24] LABS: Alkaline Phosphatase* 73 U/L (40-150); Aspartate Amino Transferase* 33 U/L (12-35); Bilirubin Total* 1.1 mg/dL (0.1-1.5); Blood Urea Nitrogen* 18 mg/dL (7-30); Carbon Dioxide* 28 mmol/L (20-32); Cholesterol* 148 mg/dL (90-199); Creatinine* 1.4 mg/dL (0.5-1.5); Estimated Glomerular Filt Rate 57 ml/min; Glucose* 94 mg/dL (60-115); Total Protein* 6.9 g/dL (6.0-8.3); Triglycerides* 89 mg/dL (40-149)
[2022-11-02 15:25] LABS: Alanine Aminotransferase* 31 U/L (4-50); Calcium* 9.2 mg/dL (8.4-10.6); HDL Cholesterol* 62 mg/dL (>=40); LDL Cholesterol Calculated 68 mg/dL (<100)
[2022-11-02 15:55] LABS: PSA Screen* 6.35 ng/mL (0.10-4.00)
== END 2022-11-02 11:48 | disposition home or self-care (01) ==
PROVIDERS: PCP Family Medicine; Visit Provider Family Medicine
DX: Z00.00 Encounter for general adult medical examination without abnormal findings (principal); E78.5 Hyperlipidemia, unspecified; R97.20 Elevated prostate specific antigen [PSA]
CPT/HCPCS: 80053; 80061; 84153

== ENCOUNTER 2023-01-07 12:49 | Outpatient (CLI) | payer OTHER, SELFPAY | END 2023-01-07 12:50 | disposition home or self-care (01) | LOC: RAD 12:50 | PROVIDERS: PCP Family Medicine; Visit Provider Internal Medicine | DX: I25.10 Atherosclerotic heart disease of native coronary artery without angina pectoris (principal); I51.7 Cardiomegaly; I34.0 Nonrheumatic mitral (valve) insufficiency | CPT/HCPCS: 93306 ==

== ENCOUNTER 2024-01-21 08:10 | Outpatient (CLI) | payer OTHER, SELFPAY | END 2024-01-21 08:11 | disposition home or self-care (01) | LOC: NFLDREF 01-31 12:37 | PROVIDERS: PCP Family Medicine; Referring Provider Family Medicine; Visit Provider Family Medicine | DX: Z12.5 Encounter for screening for malignant neoplasm of prostate (principal); Z13.1 Encounter for screening for diabetes mellitus; Z13.220 Encounter for screening for lipoid disorders | CPT/HCPCS: 80053; 80061; G0103 ==

== ENCOUNTER 2024-04-08 10:30 | Outpatient (RCR) | payer OTHER, SELFPAY | END 2024-06-10 09:38 | disposition home or self-care (01) | PROVIDERS: PCP Family Medicine; Visit Provider Family Medicine | DX: M50.30 Other cervical disc degeneration, unspecified cervical region (principal); M89.9 Disorder of bone, unspecified; M25.511 Pain in right shoulder; Z51.89 Encounter for other specified aftercare | CPT/HCPCS: 97110; 97140; 97161 ==

== ENCOUNTER 2024-04-24 07:59 | Outpatient (CLI) | payer OTHER, SELFPAY ==
--- OUTSIDE RECORDS SUMMARY | 2024-04-24 08:01 | XMS_ITS | Clinical Summary ---
Author Organization [facility] Address [place], [place] [address] Care Team Providers Care Emerging Solutions Executive Name Role Phone Walker Purcell MD Primary Care Provider [phone] Allergies No known active allergies Medications Medication Sig Dispensed Refills Start Date End Date Status albuterol HFA (VENTOLIN HFA) 90 mcg/actuation inhaler Inhale 2 Puffs by mouth 4 times daily if needed. 0 02/21/2013 Active esomeprazole (NEXIUM) 20 mg capsule Take 1 capsule by mouth once daily before a meal. 0 02/21/2013 Active NebulizerIndications :Asthma Nebulizer, neb kit, neb cup and mask. Medication: albuterol For home use. 1 Device 0 12/01/2014 Active albuterol (PROVENTIL) 0.083 % neb solutionIndications: Asthma Inhale 3 mL via a nebulizer every 6 hours if needed for Shortness Of Breath. 2 box 3 12/01/2014 Active montelukast (Singulair) 10 mg tablet Take 10 mg by mouth at bedtime. Active mag/aluminum/sod bicarb/alginc (GAVISCON ORAL) Take 4 Tablets by mouth at bedtime. Active loratadine (Claritin) 10 mg tablet Take 1 Tablet (10 mg) by mouth once daily. 0 08/29/2022 Active traZODone (DESYREL) 50 mg tablet Take 25 mg by mouth at bedtime. 02/27/2022 Active famotidine (PEPCID) 10 mg tablet Take 1 Tablet by mouth once daily. 06/25/2021 Active pravastatin (PRAVACHOL) 20 mg tablet Take 20 mg by mouth. 02/15/2022 Active Active Problems Problem Noted Date Diagnosed Date Adenomatous colon polyp 07/22/2015 Overview: Colonoscopy 07/2015 polyp repeat in 5 years GERD (gastroesophageal reflux disease) 4 Asthma 02/20/2014 Allergy, unspecified not elsewhere classified Overview: Has benefited from Allergy shots 3 years; DOCTOR Karina Ken Social History Tobacco Use Types Packs/Day Years Used Date Smoking Tobacco: Never Smokeless Tobacco: Never Tobacco Cessation:Counseling Given: Yes Alcohol Use Standard Drinks/Week Comments Yes 0 (1 standard drink = 0.6 oz pur e alcohol) Social Connections Answer Date Recorded Frequency of Communication with Friends and Fami ly Not on file 11/06/2021 Financial Resource Strain Answer Date R ecorded Difficulty of Paying Living Expenses Not on file 11/06/2021 Difficulty of Paying Living Expenses Not on file 11/06/2021 Sex and Gender Information Value Date Recorded Sex Assigned at Not on file Gender Identity Not on file Sexual Orientation Not on file Obstetrics History Last Filed Vital Signs Vital Sign Reading Time Taken Comments Blood Pressure 113/79 01/22/2024 8:37 AM CDT Pulse 73 01/22/2024 8:37 AM CDT Temperature 36.4 ??C (97.6 ??F) 01/22/2024 8:37 AM CD T Respiratory Rate 18 09/27/2014 3:17 PM BASTING MACHINE OPERATOR Oxygen Saturation 98% 01/22/2024 8:37 AM CDT Inhaled Oxygen Concentration - - Weight 89.4 kg (197 lb) 11/28/2023 8:22 AM BASTING MACHINE OPERATOR Height 187.3 cm (6' 1.75) 11/22/2021 11:[address] Body Mass Index 25.47 11/22/2021 11:27 AM BASTING MACHINE OPERATOR Plan of Treatment Health Maintenance Due Date Last Done Comments Tdap 01/30/1972 Depression screening for age 12+ 1973 HIV for age 15-65 01/30/1976 BMI (ht and wt on same day) for age 18+ 1979 Hepatitis C screening for age 18-79 1979 Tetanus booster 1981 Lipids for age 45-75 2006 Zoster (shingles) series for age 50+ (1 of 2) 2011 COVID-19 vaccine series (2022-24 season) 2023 08/30/2022, 03/16/2022, 09/14/2021, Additional history exists Influenza for age 50-64 07/12/2024 Colonoscopy through age 75 03/10/202803/10, 03/10/2021, 09/12/2020, Additional history exists Pneumococcal series for age 6-64 Aged Out No longer eligible based on patient's age to complete this topic Procedures Procedure Name Priority Date/Time Associated Diagnosis Comments COLONOSCOPY 03/10/2021 9:06 AM CDT from Last 3 Months or Most Recently Relevant to Health Maintenance Results * COLONOSCOPY (03/10/2021 9:06 AM CDT) 03/10/2021 9:06 AM CDT Narrative Transcriptions Gabino Al MD - 03/10/2021 9:33 AM CDT Patient Name: Timur Christensen Procedure Date: 03/10/2021 Gender: Male Date of : 1960 Admit Type: Ambulatory Procedure: Colonoscopy Proceduralist: Gabino Al MD , Emma Fulton RN(Nurse) Indications/Pre-Op Diagnosis: Surveillance: Personal history ofadenomatous polyps on last colonoscopy 5 years ago, Last colonoscopy: July 2015 Medications: Fentanyl 200 micrograms IV, Midazolam 6 mgIV, (medications documented represent totaldosages for multiple procedures) Procedure Description: The patient had risks, benefits and alternatives explained to andgave informed consent. The patient had a stable cardiopulmonary status and judged an adequate candidate for conscious sedation. The Colonoscope was passed through the anus and advanced to thececum, identified by appendiceal orifice and ileocecal valve. Thecolonoscopy was performed without difficulty. The patient tolerated the procedure well. The quality of the bowel preparation was good. The ileocecal valve, appendiceal orifice, and rectum were photographed. Complications: No immediate complications. Estimated Blood Loss & Specimen: Estimated blood loss: none. Specimen collected - None Findings: The perianal and digital rectal examinations were normal. The entire examined colon appeared normal on direct and retroflexion views. Impressions/Post-Op Diagnosis: - The entire examined colon is normal on direct and retroflexionviews. - No specimens collected. Recommendation: - Patient has a contact number available for emergencies. The signsand symptoms of potential delayed complications were discussed with the patient. Return to normal activities tomorrow. Written discharge instructions were provided to the patient. - Resume previous diet. - Continue present medications. - Repeat colonoscopy in 7 years for surveillance. - Patient's sedation for a repeat study will require Anesthesia staff assistance. Moderate Sedation: Moderate (conscious) sedation was administered by the endoscopy nurse and supervised by the endoscopist. The following parameters were monitored: oxygen saturation, heart rate, respiratory rate, blood pressure, adequacy of pulmonary ventilation and reponse to care. Please refer to the patient's medical record flowsheets and nursing notes for moderate sedation details. Total physician intraservice time was 28 minutes. Gabino Al MD 03/10/2021 9:33:33 AM This report has been signed electronically. Note Initiated On: 03/10/2021 9:06 AM Procedure Code(s): --- Professional --- 47751, Colonoscopy, flexible; diagnostic, including collection of specimen(s) bybrushing or washing, when performed (separateprocedure) Diagnosis Code(s): --- Professional --- Z86.010, Personal history of colonicpolyps CPT copyright 2019 [employer]. All rights reserved. The codes documented in this report are preliminary and upon still operator reviewmay be revised to meet current compliance requirements. Scope In: 9:07:43 AM Scope Withdrawal Time 0 hours 6 minutes 18 seconds Scope Out: 9:23:19 AM Gabino Al MD PROCEDURE ORD from Last 3 Months or Most Recently Relevant to Health Maintenance Care Teams Emerging Solutions Executive Relationship Specialty Start Date End Date Walker Purcell MD [address] [place] [address] PCP - General Family Practice 11/21/21
--- OUTSIDE RECORDS SUMMARY | 2024-04-24 08:01 | XMS_ITS | Clinical Summary ---
Author Organization [employer] Address [address] [place] [address] Care Team Providers Care Head Of Stock Name Role Phone Walker Purcell MD Primary Care Provider [phone] Source Comments You are receiving this document as you are listed as the primary care provider,follow-up provider, or the patient has been referred to you for consultation.This is in compliance with the Medicare and[facility]centive [facility],which states Providers who transition their patient to another setting of careor provider of care or refers their patient to another provider of care shouldprovide summary care record for each transition of care or referral. [employer] Allergies Active Allergy Reactions Criticality Noted Date Comments Other 08/01/1998 PN: LW Other1: -nka Review Contrast Media 08/01/1998 PN: LW CM1: CONTRAST- nka Reaction : Review Food Intolerance PN: LW FI1: nka Medications Medication Sig Dispensed Refills Start Date End Date Status valACYclovir (VALTREX) 1 G tablet Take 1 g by mouth daily. 10/08/2017 Active esomeprazole (NEXIUM) 20 MG capsule Take 40 mg by mouth. 02/21/2013 Active Alum Hydroxide-Mag Carbonate (GAVISCON OR) 4 Tablets. Active famotidine (PEPCID AC) 10 MG tablet 06/25/2021 Active pravastatin (PRAVACHOL) 20 MG tablet Take 20 mg by mouth daily. 02/15/2022 Active loratadine (CLARITIN) 10 MG tablet Take 10 mg by mouth daily. Active ipratropium-albuterol (DUONEB) 0.5-2.5 (3) mg/3ml nebulizer solutionIndications:M oderate persistent asthma without complication (HRC) Inhale 3 mL every 4 hours as needed for Wheezing or Shortness of Breath. 120 mL 11 04/29/2023 Active ALBUterol sulfate HFA (VENTOLIN HFA) 108 (90 Base) MCG/ACT inhalerIndications:Mo derate persistent asthma without complication (HRC) Inhale 1-2 Puffs every 4 hours as needed for Wheezing. 3 Each 11 11/06/2023 Active doxycycline hyclate (VIBRA-TABS) 100 MG tabletIndications:Mod erate persistent asthma without complication (HRC) Take 1 Tablet (100 mg) by mouth two times a day. 20 Tablet 3 11/06/2023 Active fluticasone-vilantero l (BREO ELLIPTA) 200-25 MCG/ACT inhalerIndications:Mo derate persistent asthma without complication (HRC) Inhale 1 Dose daily. Rinse mouth/gargle after use 180 Each 3 11/06/2023 Active montelukast (SINGULAIR) 10 MG tabletIndications:Mod erate persistent asthma without complication (HRC) Take 1 Tablet (10 mg) by mouth every evening. 90 Tablet 3 11/06/2023 Active Active Problems Problem Noted Date Diagnosed Date Hiatal hernia 12/05/2017 Adenomatous colon polyp 07/22/2015 Overview: Overview: Colonoscopy 07/2015 polyp repeat in 5 years GERD (gastroesophageal reflux disease) 4 Allergic state 02/21/2013 Overview: Overview: Has benefited from Allergy shots 3 years; DOCTOR Karina Ken Asthma 04/17/2003 Overview: Asthma NOS Allergic rhinitis 04/17/2003 Overview: Rhinitis Allergic NOS Unspecified chronic bronchitis Immunizations Name Administration Dates Next Due Influenza IIV4 (Quadrivalent) 0.5mL (72943) 09/11 Moderna Monovalent 12+ 12/08/2020 Social History Tobacco Use Types Packs/Day Years Used Date Smoking Tobacco: Never Smokeless Tobacco: Never Tobacco Cessation:Counseling Given: Not Answered Alcohol Use Standard Drinks/Week Comments Yes 7 (1 standard drink = 0.6 oz pur e alcohol) 7 a week Sex and Gender Information Value Date Recorded Sex Assigned at Not on file Gender Identity Not on file Sexual Orientation Not on file Last Filed Vital Signs Vital Sign Reading Time Taken Comments Blood Pressure 137/90 12/13/2020 11:24 AM CASE BRIEFER Pulse 54 11/06/2023 2:15 PM CASE BRIEFER Temperature - - Respiratory Rate 18 01/21/2018 3:10 PM CDT Oxygen Saturation 98% 11/06/2023 2:15 PM CASE BRIEFER Inhaled Oxygen Concentration - - Weight 88.9 kg (196 lb) 11/06/2023 2:15 PM CASE BRIEFER Height 181 cm (5' 11.25) 11/06/2023 2:15 PM CASE BRIEFER Body Mass Index 27.14 11/06/2023 2:15 PM CASE BRIEFER Plan of Treatment Upcoming Encounters Date Type Department Care Team (Late st Contact Info) Description 05/18/2024 1:00 PM CDT Appointment [facility] [address] [place] [id number] 05/18/2024 1:45 PM CDT Office Visit [facility] [address] [place] [address] Brianne Morgan MD [address] [facility] [address] [place] [id number] Health Maintenance Due Date Last Done Comments Colon Cancer Screening Plan Due 1961 Diabetes Screening- (based on age and BMI) 1961 Hep C Screening (Preventive Services) 1961 HIV Screening (Preventive Services) 1977 Adult Preventive Visit 1979 DTaP/Tdap/Td (1 - Tdap) 01/30/1980 Cholesterol 01/30/1996 Zoster/Shingles (1 of 2) 2011 PSA Screening Discussion 02/20/2024 02/19/2023 Pneumococcal (3 - PPSV23 or PCV20) 2026 06/27/2018, 03/08/2015 COVID-19 Vaccine Completed 09/05/2023, , 03/16/2022, Additional history exists Influenza Completed 09/06/2023, 08/11, 09/01/2021, Additional history exists HepA Aged Out No longer eligi ble based on patient's age to complete this topic HepB Aged Out No longer eligi ble based on patient's age to complete this topic Hib Aged Out No longer eligi ble based on patient's age to complete this topic IPV (Polio) Aged Out No longer eligi ble based on patient's age to complete this topic MCV4 Aged Out No longer eligi ble based on patient's age to complete this topic Care Teams Head Of Stock Relationship Specialty Start Date End Date Walker Purcell MD [address] [place] [address] PCP - General Family Practice 03/02/19
== END 2024-04-24 08:00 | disposition home or self-care (01) ==
LOC: RAD 08:00
PROVIDERS: PCP Family Medicine; Visit Provider Internal Medicine
DX: I25.10 Atherosclerotic heart disease of native coronary artery without angina pectoris (principal); I35.1 Nonrheumatic aortic (valve) insufficiency; I07.1 Rheumatic tricuspid insufficiency
CPT/HCPCS: 93306

== ENCOUNTER 2025-01-26 12:55 | Outpatient (CLI) | payer OTHER, SELFPAY | END 2025-01-26 12:56 | disposition home or self-care (01) | PROVIDERS: PCP Family Medicine; Visit Provider Family Medicine | DX: E78.00 Pure hypercholesterolemia, unspecified (principal); I25.10 Atherosclerotic heart disease of native coronary artery without angina pectoris; R97.20 Elevated prostate specific antigen [PSA] | CPT/HCPCS: 80053; 80061; 84153; 84154 ==

== ENCOUNTER 2025-02-02 07:48 | Outpatient (CLI) | payer OTHER, SELFPAY | END 2025-02-02 07:49 | disposition home or self-care (01) | PROVIDERS: PCP Family Medicine; Visit Provider Family Medicine | DX: J32.9 Chronic sinusitis, unspecified (principal); J32.0 Chronic maxillary sinusitis; J34.2 Deviated nasal septum; J40 Bronchitis, not specified as acute or chronic | CPT/HCPCS: 70486 ==

== ENCOUNTER 2025-08-18 07:57 | Outpatient (CLI) | payer OTHER, SELFPAY | END 2025-08-18 07:58 | disposition home or self-care (01) | LOC: RAD 07:57 | PROVIDERS: PCP Family Medicine; Visit Provider Internal Medicine | DX: I77.819 Aortic ectasia, unspecified site (principal); I35.1 Nonrheumatic aortic (valve) insufficiency | CPT/HCPCS: 93308; 93321; 93325 ==